=== PATIENT | female | born 1950 | race Caucasian/White ===

== ENCOUNTER 2016-11-19 20:44 | Inpatient (IN) | payer MEDICARE, MEDICAID ==
[~2016-11-19] VITALS: Ht 149.9 cm; Wt 46.2 kg
[~2016-11-19 20:44] MED LIST: CIPR500T2 PO; LACTCHW3 CHEW; METR500T10 PO; ONDA4TAB7 SL
[2016-11-19 20:45] VITALS: BP 137/64; PULSE 67; RESP 16; TEMP 98.7; O2SAT 98
--- NOTE | 2016-11-19 20:56 | PD ---
Data Data Last Documented VS Vital Signs Date Time Temp Pulse Resp B/P Pulse Ox O2 Delivery O2 Flow Rate FiO2 11/19/16 20:45 98.7 67 16 137/64 98 Room Air [facility] Supervised Visit with ARSALAN: No Narrative Course 66 YO F with complaint of abdominal cramping, N/V/D since yesterday. --F/C. States pain similar to previous episode of diverticulitis. Vitals reviewed. Patient seen in triage. Awaiting bed placement. Catarina Yang Nov 19, 2016 20:56
[2016-11-19] MEDS ORDERED: SODIUM CHLOR 0.9% 1000 ML INJ 1,000 ML IV SCH (21:13)
[2016-11-19] MEDS ORDERED: MORPHINE SULFATE 4 MG/ML INJ IV PUSH ONE (21:15)
[2016-11-19] MEDS ORDERED: ONDANSETRON HCL 4 MG/2 ML VIAL IVP ONE (21:15)
[2016-11-19] MEDS ORDERED: SODIUM CHLORIDE 0.9% FLUSH 10 ML FLUSH IV FLUSH PRN ×2 (21:15→23:00)
[2016-11-19] MEDS ORDERED: ONDANSETRON HCL 4 MG/2 ML VIAL ONE (21:16)
--- NOTE | 2016-11-19 21:18 | PD ---
HPI Chief Complaint: Abdominal Pain Time Seen by Provider: 21:14 Travel History International Travel<30 days: No Contact w/Intl Traveler<30days: No Traveled to known affect area: No History of Present Illness HPI 66-year-old female with a history of asthma, hyperlipidemia, migraine headaches presents to the emergency department for evaluation of nausea, vomiting and abdominal pain. Patient states that she's had intermittent abdominal pain for 2 weeks. States that it significantly worsened over the past 2 days. States it has become more constant over the past 2 days. Describes it as a sharp cramping pain in her right upper quadrant and periumbilical region. States that she has had nausea with multiple episodes of nonbloody nonbilious emesis over the past 2 days. States she's been unable to keep down any food or fluids. States she is not had a bowel movement in 3 days and previously had a week of diarrhea. Denies any fever, chills, chest pain, shortness of breath, bloody stool, dysuria. Denies any alcohol or drug use. Prior abdominal surgeries include section 2 and cholecystectomy. No other complaints. PFSH Past Medical History Asthma: Yes Anxiety: Yes Depression: Yes Cardiovascular Problems: No High Cholesterol: Yes Diminished Hearing: No Fibromyalgia: Yes Gastrointestinal Disorders: Yes GERD: Yes Genitourinary: No Hiatal Hernia: Yes Musculoskeletal: No Neurologic: No Psychiatric: Yes (ANXIETY ,DEPRESSION, POSSIBLY SCHIZOPHRENIA.) Reproductive: No Respiratory: Yes (ASTHMA, BRONCHITIS) Schizophrenia: Yes (05/26/07 PT DID NOT MENTION THIS ) Tetanus Vaccination: Unknown Menopausal: Yes : 2 Para: 2 Tubal Ligation: Yes Past Surgical History Abdominal Surgery: Yes Cardiac Surgery: No Section: Yes (X 2) Cholecystectomy: Yes Ear Surgery: No Endocrine Surgery: No Eye Surgery: No Genitourinary Surgery: No Gynecologic Surgery: Yes (c-sections) Oral Surgery: No Thoracic Surgery: No Tonsillectomy: Yes Other Surgery: Yes Social History Alcohol Use: No Tobacco Use: No Substance Use: No Allergies-Medications (Allergen,Severity, Reaction): Coded Allergies: Benadryl (Verified Allergy, Severe, 11/19/16) MEDICATION GIVE OPPOSITE EFFECT Penicillin (Verified Allergy, Severe, 11/19/16) Sulfa (Verified Allergy, Severe, RASH, 11/19/16) Codeine (Verified Allergy, Intermediate, Nausea/Vomiting, 11/19/16) Uncoded Allergies: NARCOTICS (Allergy, Severe, 11/23/09) SEVERE ABDOMINAL PAIN TAPES (Allergy, Mild, 05/20/08) Reported Meds & Prescriptions Reported Meds & Active Scripts Active No Active Prescriptions or Reported Medications Review of Systems Except as stated in HPI: all other systems reviewed are Neg Physical Exam Narrative GENERAL: Well-nourished and well-developed pleasant patient in no acute distress who is nontoxic appearing. SKIN: Warm and dry. HEAD: Normocephalic and atraumatic. EYES: No injection, drainage, or hyphema noted. PERRLA. EOMI. ENT: No nasal drainage noted. Oropharynx is clear. NECK: Supple and the trachea is midline. CARDIOVASCULAR: Regular rate and rhythm. RESPIRATORY: Breath sounds are equal bilaterally with no accessory muscle use, wheezing, rhonchi, or crackles. GASTROINTESTINAL: Right upper quadrant tenderness to palpation with periumbilical tenderness to palpation. No rebound tenderness or guarding. Abdomen is soft and nondistended. MUSCULOSKELETAL: No obvious deformities, swelling, cyanosis, or ecchymosis is present throughout the upper and lower extremities. Patient has full range of motion without any signs of neurovascular compromise. NEUROLOGICAL: Awake, alert, and oriented. Normal speech and gait. Cranial nerves are grossly intact. Data Data Last Documented VS Vital Signs Date Time Temp Pulse Resp B/P Pulse Ox O2 Delivery O2 Flow Rate FiO2 11/19/16 22:14 18 11/19/16 20:45 98.7 67 137/64 98 Room Air Orders Complete Blood Count With Diff (11/19/16 21:13) Comprehensive Metabolic Panel (11/19/16 21:13) Lipase (11/19/16 21:13) Urinalysis - C+S If Indicated (11/19/16 21:13) Ct Abd/Pel W Iv Contrast(Rout) (11/19/16 21:13) Iv Access Insert/Monitor (11/19/16 21:13) Ecg Monitoring (11/19/16 21:13) Oximetry (11/19/16 21:13) Morphine Inj (Morphine Inj) (11/19/16 21:15) Ondansetron Inj (Zofran Inj) (11/19/16 21:15) Sodium Chlor 0.9% 1000 Ml Inj (Ns 1000 M (11/19/16 21:13) Sodium Chloride 0.9% Flush (Ns Flush) (11/19/16 21:15) Ondansetron Inj (Zofran Inj) (11/19/16 21:16) Sodium Chlor 0.9% 1000 Ml Inj (Ns 1000 M (11/19/16 22:15) Iohexol 350 Inj (Omnipaque 350 Inj) (11/19/16 22:17) Ciprofloxacin 400 Mg Premix (Cipro 400 M (11/19/16 22:45) Metronidazole 500 Mg Inj (Flagyl 500 Mg (11/19/16 22:45) Ketorolac Inj (Toradol Inj) (11/19/16 22:45) Labs Laboratory Tests Test 11/19/16 21:15 White Blood Count 6.2 TH/MM3 Red Blood Count 5.03 MIL/MM3 Hemoglobin 16.3 GM/DL Hematocrit 47.0 % Mean Corpuscular Volume 93.5 FL Mean Corpuscular Hemoglobin 32.4 PG Mean Corpuscular Hemoglobin 34.7 % Concent Red Cell Distribution Width 12.3 % Platelet Count 241 TH/MM3 Mean Platelet Volume 9.5 FL Neutrophils (%) (Auto) 58.9 % Lymphocytes (%) (Auto) 34.9 % Monocytes (%) (Auto) 4.9 % Eosinophils (%) (Auto) 0.4 % Basophils (%) (Auto) 0.9 % Neutrophils # (Auto) 3.7 TH/MM3 Lymphocytes # (Auto) 2.2 TH/MM3 Monocytes # (Auto) 0.3 TH/MM3 Eosinophils # (Auto) 0.0 TH/MM3 Basophils # (Auto) 0.1 TH/MM3 CBC Comment DIFF FINAL Differential Comment Sodium Level 135 MEQ/L Potassium Level 3.7 MEQ/L Chloride Level 98 MEQ/L Carbon Dioxide Level 17.2 MEQ/L Anion Gap 20 MEQ/L Blood Urea Nitrogen 10 MG/DL Creatinine 0.93 MG/DL Estimat Glomerular Filtration 61 ML/MIN Rate Random Glucose 60 MG/DL Calcium Level 9.8 MG/DL Total Bilirubin 0.9 MG/DL Aspartate Amino Transf 28 U/L (AST/SGOT) Alanine Aminotransferase 30 U/L (ALT/SGPT) Alkaline Phosphatase 62 U/L Total Protein 8.6 GM/DL Albumin 4.6 GM/DL Lipase 228 U/L [facility] Medical Decision Making Medical Screen Exam Complete: Yes Emergency Medical Condition: Yes Differential Diagnosis Colitis versus diverticulitis versus pancreatitis versus dehydration versus electrolyte abnormality Narrative Course 66-year-old female presents to the emergency department for evaluation of abdominal pain, nausea and vomiting. Patient is afebrile, vital signs are stable. She has some right upper quadrant and periumbilical abdominal tenderness but no peritoneal signs. IV access is obtained, labs drawn and sent. Patient was on chronic telemetry and pulse oximetry monitoring. Patient will be administered IV fluids, Zofran and morphine. CT of the abdomen and pelvis with IV contrast has been ordered and is pending. CBC is unremarkable. CMP shows dehydration with an anion gap of 20. CT of the abdomen and pelvis with IV contrast shows proximal enteritis, proximal /mid colitis and sigmoid diverticulitis. Patient is reassessed after receiving IV fluids, Zofran and morphine and states that she is still feeling poorly. Patient will be admitted for IV antibiotics, fluids and antiemetics. She is administered IV Cipro, IV Flagyl and Toradol IV. I discussed the case with my attending physician Dr. To who is aware of the patients history, physical examination findings, and treatment plan. Physician Communication Physician Communication I spoke with Dr. Tobias [facility] who agrees to admit the patient to her service. Diagnosis Primary Impression: Enteritis Additional Impressions: Diverticulitis Qualified Code: K57.32 - Diverticulitis of large intestine without perforation or abscess without bleeding Nausea & vomiting Qualified Code: R11.2 - Non-intractable vomiting with nausea, unspecified vomiting type Admitting Information Admitting Physician Requests: Admit Scripts No Active Prescriptions or Reported Meds Madeline Hayward Nov 19, 2016 21:18
[2016-11-19 21:44] LABS: AUTOMATED NEUTROPHIL # 3.7 TH/MM3 (1.8-7.7); BASOPHIL # 0.1 TH/MM3 (0-0.2); BASOPHIL % 0.9 % (0.0-2.0); EOSINOPHIL % 0.4 % (0.0-4.0); HEMO FLAGS DIFF FINAL; LYMPH % 34.9 % (9.0-44.0); LYMPHOCYTE # 2.2 TH/MM3 (1.0-4.8); MEAN CELL VOLUME 93.5 FL (80.0-100.0); MEAN CORPUSCULAR HEMOGLOBIN 32.4 PG (27.0-34.0); MEAN CORPUSCULAR HGB CONC 34.7 % (32.0-36.0); MONO % 4.9 % (0.0-8.0); NEUT % 58.9 % (16.0-70.0); PLATELET COUNT 241 TH/MM3 (150-450); RED BLOOD COUNT 5.03 MIL/MM3 (4.00-5.30); RED CELL DISTRIBUTION WIDTH 12.3 % (11.6-17.2); WHITE BLOOD COUNT 6.2 TH/MM3 (4.0-11.0)
[2016-11-19 21:58] LABS: ANION GAP 20 MEQ/L (5-15); AST (GOT) 28 U/L (15-37); BICARBONATE 17.2 MEQ/L (21.0-32.0); BLOOD UREA NITROGEN 10 MG/DL (7-18); CHLORIDE 98 MEQ/L (98-107); GLOMERULAR FILTRATION RATE 61 ML/MIN (>89); POTASSIUM 3.7 MEQ/L (3.5-5.1); SODIUM (NA) 135 MEQ/L (136-145)
[2016-11-19 22:00] LABS: ALT (GPT) 30 U/L (10-53)
[2016-11-19 22:02] LABS: ALKALINE PHOSPHATASE 62 U/L (45-117); TOTAL BILIRUBIN ADULT 0.9 MG/DL (0.2-1.0)
[2016-11-19] MEDS ORDERED: SODIUM CHLOR 0.9% 1000 ML INJ 1,000 ML IV ONE (22:15)
[2016-11-19] MEDS ORDERED: IOHEXOL 350 MG/ML 10 ML VIAL (for RAD DIAG) IV ONE (22:17)
--- NOTE | 2016-11-19 22:32 | RADRPT ---
EXAM DATE/TIME: 11/19/2016 22:13 [place] COMPARISON: CT ABDOMEN & PELVIS W CONTRAST, April 23, 2016, 11:31. INDICATIONS : Upper abdominal pain X 2 weeks. IV CONTRAST: 70 cc Omnipaque 350 (iohexol) IV ORAL CONTRAST: No oral contrast ingested. RADIATION DOSE: 4.56 CTDIvol (mGy) MEDICAL HISTORY : Gastroesophageal reflux disease. Hiatal hernia, Asthma SURGICAL HISTORY : Cholecystectomy. Tubal ligation. section. ENCOUNTER: Initial ACUITY: 2 weeks PAIN SCALE: 7/10 LOCATION: abdomen TECHNIQUE: Volumetric scanning of the abdomen and pelvis was performed. Using automated exposure control and ad justment of the mA and/or kV according to patient size, radiation dose was kept as low as reasonably achievable to obtain optimal diagnostic quality images. FINDINGS: LOWER LUNGS: The visualized lower lungs are clear. LIVER: Homogeneous density without lesion. There is no dilation of the biliary tree. No calcified gallston es. SPLEEN: Normal size without lesion. PANCREAS: Within normal limits. KIDNEYS: Unchanged 3.4 cm cyst left kidney. ADRENAL GLANDS: Within normal limits. VASCULAR: There is no aortic aneurysm. BOWEL/MESENTERY: Fluid and mild wall thickening seen of the colon, mainly cecum and transverse colon. There is sigmoid colon diverticulosis and suspected mild, acute diverticulitis of the proximal sigmoid colon. Mild mu cosal fold thickening seen of several loops of jejunum in the left upper quadrant. There is trace dajuan e fluid in the pelvic cavity. No bowel obstruction. ABDOMINAL WALL: Within normal limits. RETROPERITONEUM: There is no lymphadenopathy. BLADDER: No wall thickening or mass. REPRODUCTIVE: Within normal limits. INGUINAL: There is no lymphadenopathy or hernia. MUSCULOSKELETAL: Within normal limits for patient age. CONCLUSION: Mild proximal enteritis and proximal/mid colitis as above, nonspecific but presumably infectious. Als o mild sigmoid colon diverticulitis. No abscess, perforation or obstruction. Rodriguez Aparicio MD on November 19, 2016 at 22:25 Board Certified Radiologist. This report was verified electronically.
--- NOTE | 2016-11-19 22:41 | PD ---
Data Data Last Documented VS Vital Signs Date Time Temp Pulse Resp B/P Pulse Ox O2 Delivery O2 Flow Rate FiO2 11/19/16 22:14 18 11/19/16 20:45 98.7 67 137/64 98 Room Air Orders Complete Blood Count With Diff (11/19/16 21:13) Comprehensive Metabolic Panel (11/19/16 21:13) Lipase (11/19/16 21:13) Urinalysis - C+S If Indicated (11/19/16 21:13) Ct Abd/Pel W Iv Contrast(Rout) (11/19/16 21:13) Iv Access Insert/Monitor (11/19/16 21:13) Ecg Monitoring (11/19/16 21:13) Oximetry (11/19/16 21:13) Morphine Inj (Morphine Inj) (11/19/16 21:15) Ondansetron Inj (Zofran Inj) (11/19/16 21:15) Sodium Chlor 0.9% 1000 Ml Inj (Ns 1000 M (11/19/16 21:13) Sodium Chloride 0.9% Flush (Ns Flush) (11/19/16 21:15) Ondansetron Inj (Zofran Inj) (11/19/16 21:16) Sodium Chlor 0.9% 1000 Ml Inj (Ns 1000 M (11/19/16 22:15) Iohexol 350 Inj (Omnipaque 350 Inj) (11/19/16 22:17) Ciprofloxacin 400 Mg Premix (Cipro 400 M (11/19/16 22:45) Metronidazole 500 Mg Inj (Flagyl 500 Mg (11/19/16 22:45) Labs Laboratory Tests Test 11/19/16 21:15 White Blood Count 6.2 TH/MM3 Red Blood Count 5.03 MIL/MM3 Hemoglobin 16.3 GM/DL Hematocrit 47.0 % Mean Corpuscular Volume 93.5 FL Mean Corpuscular Hemoglobin 32.4 PG Mean Corpuscular Hemoglobin 34.7 % Concent Red Cell Distribution Width 12.3 % Platelet Count 241 TH/MM3 Mean Platelet Volume 9.5 FL Neutrophils (%) (Auto) 58.9 % Lymphocytes (%) (Auto) 34.9 % Monocytes (%) (Auto) 4.9 % Eosinophils (%) (Auto) 0.4 % Basophils (%) (Auto) 0.9 % Neutrophils # (Auto) 3.7 TH/MM3 Lymphocytes # (Auto) 2.2 TH/MM3 Monocytes # (Auto) 0.3 TH/MM3 Eosinophils # (Auto) 0.0 TH/MM3 Basophils # (Auto) 0.1 TH/MM3 CBC Comment DIFF FINAL Differential Comment Sodium Level 135 MEQ/L Potassium Level 3.7 MEQ/L Chloride Level 98 MEQ/L Carbon Dioxide Level 17.2 MEQ/L Anion Gap 20 MEQ/L Blood Urea Nitrogen 10 MG/DL Creatinine 0.93 MG/DL Estimat Glomerular Filtration 61 ML/MIN Rate Random Glucose 60 MG/DL Calcium Level 9.8 MG/DL Total Bilirubin 0.9 MG/DL Aspartate Amino Transf 28 U/L (AST/SGOT) Alanine Aminotransferase 30 U/L (ALT/SGPT) Alkaline Phosphatase 62 U/L Total Protein 8.6 GM/DL Albumin 4.6 GM/DL Lipase 228 U/L [facility] Supervised Visit with ARSALAN: Yes Narrative Course I, Dr. To, have reviewed the advance practice practioner's documentation and am in agreement, met with the patient face to face, made the diagnosis, and the medical decision making was done by me. *My assessment and Findings: 66-year-old female with history of irritable bowel who presents emergency Department with 2 days of crampy abdominal pain, nausea, intractable vomiting. She's not been able to keep anything down for essentially the last 2 days. She states that previous to this she had a week's worth of diarrhea and now hasn't had a bowel movement for 2 days. She denies any history of bowel obstructions by previous abdominal surgeries include C- section 2 and cholecystectomy. Mild to moderate diffuse abdominal tenderness to palpation but no peritoneal signs, rebound or guarding. Differential includes colitis, enteritis, irritable bowel syndrome, dehydration, electrolyte abnormality and less likely peritoneal pathology. Laboratory workup shows anion gap metabolic acidosis consistent with her dehydration. Patient was given 2 L normal saline bolus. CT abdomen and pelvis shows enteritis, colitis and diverticulitis. Patient is still miserable and not able to tolerate oral challenge and will be admitted for symptom control. Scripts No Active Prescriptions or Reported Meds Crystal To MD Nov 19, 2016 22:41
[2016-11-19] MEDS ORDERED: CIPROFLOXACIN 400 MG PREMIX 200 ML IV ONE (22:45)
[2016-11-19] MEDS ORDERED: metroNIDAZOLE 500 MG INJ 100 ML IV ONE (22:45)
[2016-11-19] MEDS ORDERED: KETOROLAC TROMETHAMINE 30 MG/ML (IVP) VIAL IV PUSH ONE (22:45)
[2016-11-19] MEDS ORDERED: ACETAMINOPHEN 325 MG TAB PO PRN (23:00)
[2016-11-19] MEDS ORDERED: MAGNESIUM HYDROXIDE SUSP 30 ML CUP PO PRN (23:00)
[2016-11-19] MEDS ORDERED: SENNOSIDES 8.6 MG TAB PO PRN (23:00)
[2016-11-19] MEDS ORDERED: LACTULOSE SYRUP 20 GM/30 ML CUP PO PRN (23:00)
[2016-11-19] MEDS ORDERED: BISACODYL 10 MG SUPP RECTAL PRN (23:00)
--- NOTE | 2016-11-19 23:07 | HHI.HP ---
[facility] Vernon Correa MD Admission Diagnosis Enteritis, Diverticulitis, Nausea and Vomiting Diagnoses: (1) Colitis Diagnosis: Principal (2) Dehydration Diagnosis: Principal (3) Intractable nausea and vomiting Diagnosis: Principal Travel History International Travel<30 Days: No Contact w/Intl Traveler <30 Da: No Traveled to Known Affected Are: No History of Present Illness This is a 66-year-old female with a PMH of Anxiety, Depression, Fibromyalgia, Schizophrenia and Asthma who presented to the ER with complaints of nausea, vomiting and abdominal pain for approx 2wks. Denies fever, chills, diarrhea or sick contacts. Has been unable to tolerate PO due to symptoms. On arrival, BP 137/64, HR 67, O2 sat 98% on RA, Afebrile. CBC unremarkable except for hemoconcentration, Hemoglobin 16.3. GFR 61. AG 20. UA negative. CT Abd/ Pelvis w/ mild proximal enteritis and proximal/mid colitis likely infectious and mild sigmoid colon diverticulitis. S/p Cipro/Flagyl. Review of Systems [place] via Past Family Social History Past Medical History PMH: Anxiety, Depression, Fibromyalgia, Schizophrenia and Asthma Past Surgical History PAST SURGICAL HISTORY: , Cholecystectomy Allergies: Coded Allergies: Benadryl (Verified Allergy, Severe, 11/19/16) MEDICATION GIVE OPPOSITE EFFECT Penicillin (Verified Allergy, Severe, 11/19/16) Sulfa (Verified Allergy, Severe, RASH, 11/19/16) Codeine (Verified Allergy, Intermediate, Nausea/Vomiting, 11/19/16) Uncoded Allergies: NARCOTICS (Allergy, Severe, 11/23/09) SEVERE ABDOMINAL PAIN TAPES (Allergy, Mild, 05/20/08) Family History PAST FAMILY HISTORY: Reviewed. No h/o DM or CAD Social History PAST SOCIAL HISTORY: Negative for alcohol, tobacco or drugs. Physical Exam Vital Signs Vital Signs Date Time Temp Pulse Resp B/P Pulse Ox O2 Delivery O2 Flow Rate FiO2 11/19/16 22:14 18 11/19/16 20:45 98.7 67 16 137/64 98 Room Air Physical Exam PE: GENERAL: Thin, middle-aged white female in no acute distress, appears to feel unwell. HEENT: PERRLA, EOMI. No scleral icterus or conjunctival pallor. No lid lag or facial droop. CARDIOVASCULAR: Regular rate and rhythm. No obvious murmurs to auscultation. No chest tenderness to palpation. RESPIRATORY: No obvious rhonchi or wheezing. Clear to auscultation. Breath sounds equal bilaterally. GASTROINTESTINAL: Abdomen soft, generalized tenderness to palpation, nondistended. BS normal. MUSCULOSKELETAL: Extremities without clubbing, cyanosis, or edema. No obvious deformities. NEUROLOGICAL: Awake, alert and oriented x4. No focal neurologic deficits. Moving both upper and lower extremities spontaneously. Laboratory Laboratory Tests Test 11/19/16 21:15 White Blood Count 6.2 Red Blood Count 5.03 Hemoglobin 16.3 Hematocrit 47.0 Mean Corpuscular Volume 93.5 Mean Corpuscular Hemoglobin 32.4 Mean Corpuscular Hemoglobin 34.7 Concent Red Cell Distribution Width 12.3 Platelet Count 241 Mean Platelet Volume 9.5 Neutrophils (%) (Auto) 58.9 Lymphocytes (%) (Auto) 34.9 Monocytes (%) (Auto) 4.9 Eosinophils (%) (Auto) 0.4 Basophils (%) (Auto) 0.9 Neutrophils # (Auto) 3.7 Lymphocytes # (Auto) 2.2 Monocytes # (Auto) 0.3 Eosinophils # (Auto) 0.0 Basophils # (Auto) 0.1 CBC Comment DIFF FINAL Differential Comment Sodium Level 135 Potassium Level 3.7 Chloride Level 98 Carbon Dioxide Level 17.2 Anion Gap 20 Blood Urea Nitrogen 10 Creatinine 0.93 Estimat Glomerular Filtration 61 Rate Random Glucose 60 Calcium Level 9.8 Total Bilirubin 0.9 Aspartate Amino Transf 28 (AST/SGOT) Alanine Aminotransferase 30 (ALT/SGPT) Alkaline Phosphatase 62 Total Protein 8.6 Albumin 4.6 Lipase 228 Result Diagram: 11/19/16211411/19/162114 Assessment and Plan Problem List: (1) Colitis ICD Code: K52.9 Status: Acute (2) Dehydration ICD Code: E86.0 Status: Acute (3) Intractable nausea and vomiting ICD Code: R11.2 Status: Resolved Assessment and Plan A/P: 1. Colitis: Pancolitis. CT Abd/Pelvis w/ mild proximal enteritis and proximal /mid colitis minimally infectious, mild sigmoid colon diverticulitis, no abscess , perforation or obstruction noted, images reviewed by me. S/p Cipro/Flagyl in ER, continue w/ IV Abx, analgesics/antiemetics as needed. Diet as tolerated. 2. Dehydration: secondary to above, ongoing symptoms x2 wks, unable to take adequate PO. +hemoconcentration w/ Hgb 16.3, AG 20, GFR 61. IVF for hydration , repeat labs in am. 3. Intractable Nausea/Vomiting: Antiemetics as needed, IVF, diet as tolerated. 4. DVT Prophylaxis: SCD/Teds. 5. Social work for d/c planning as needed. 6. Case discussed w/ ER physician at length. Physician Certification 2 Midnight Certification Type: Admission for Inpatient Services Order for Inpatient Services The services are ordered in accordance with Medicare regulations or non- Medicare payer requirements, as applicable. In the case of services not specified as inpatient-only, they are appropriately provided as inpatient services in accordance with the 2-midnight benchmark. Estimated LOS (days): 2 days is the estimated time the patient will need to remain in the hospital, assuming treatment plan goals are met and no additional complications. Post-Hospital Plan: Not yet determined Diann Tobias MD Nov 19, 2016 23:07
[2016-11-19 23:16] LABS: BLOOD, URINE NEG (NEG); GLUCOSE,URINE NEG (NEG); KETONE, URINE 150 mg/dL (NEG); NITRITE,URINE NEG (NEG); URINE COLOR LIGHT-YELLOW (YELLW/STRAW)
[2016-11-19 23:17] LABS: COMMENT (UR) CULT NOT INDICATED; CULTURE IF INDICATED CULT NOT INDICATED
[2016-11-19] MEDS: SODIUM CHLOR 0.9% 1000 ML INJ 1,000 ML IV SCH (23:53)
[2016-11-20] VITALS (8 sets, daily range): BP systolic 85–112; BP diastolic 50–60; PULSE 54–68; RESP 15–18; TEMP 97.8–98.5; O2SAT 97–100
[2016-11-20] MEDS: ONDANSETRON HCL 4 MG/2 ML VIAL IVP PRN (05:50)
[2016-11-20] MEDS: metroNIDAZOLE 500 MG INJ 100 ML IV SCH ×3 (05:50→23:14)
[2016-11-20] MEDS: DOCUSATE SODIUM 50 MG/SENNA 8.6 MG TAB PO SCH ×2 (07:51→21:00)
[2016-11-20] MEDS: SODIUM CHLORIDE 0.9% FLUSH 10 ML FLUSH IV FLUSH SCH ×2 (07:51→21:00)
[2016-11-20] MEDS: SODIUM CHLOR 0.9% 1000 ML INJ 1,000 ML IV SCH (07:52)
--- NOTE | 2016-11-20 09:11 | HHI.PR ---
Subjective Remarks Patient seen and examined this am. Vitals are stable, saturating well on room air. Reporting some abdominal pain, asking if she can have her toradol back. States she has this abdominal pain where her colitis flares and that it slowly subsides and goes away. She states the pain is deep and pulsatile, feels that it moves from the right upper quadrant to left lower quadrant. Denies N/V. Overall pain is improved. States food does not affect the pain. Objective Vital Signs Date Time Temp Pulse Resp B/P Pulse Ox O2 Delivery O2 Flow Rate FiO2 11/20/16 08:01 Room Air 11/20/16 04:00 98.0 66 16 91/50 98 11/20/16 02:20 Room Air 11/20/16 01:12 54 16 112/60 11/20/16 00:50 97.8 56 18 94/51 99 11/19/16 22:14 18 11/19/16 20:45 98.7 67 16 137/64 98 Room Air I/O 11/19/16 11/19/16 11/19/16 11/20/16 11/20/16 11/20/16 07:00 15:00 23:00 07:00 15:00 23:00 Intake Total 3048 ml Balance 3048 ml Intake Oral 240 ml IV Total 2808 ml # Voids 2 # Bowel Movements 0 Result Diagram: 11/19/16211411/19/162114 Imaging Last Impressions Abdomen/Pelvis CT 11/19/162112 Signed Impressions: Service Date/Time: Saturday, November 19, 2016 22:13 - CONCLUSION: Mild proximal enteritis and proximal/mid colitis as above, nonspecific but presumably infectious. Also mild sigmoid colon diverticulitis. No abscess, perforation or obstruction. Rodriguez Aparicio MD Objective Remarks GENERAL: thin appearing female SKIN: Warm and dry. HEAD: Normocephalic. EYES: No scleral icterus. No injection or drainage. NECK: Supple, trachea midline. No JVD or lymphadenopathy. CARDIOVASCULAR: Regular rate and rhythm without murmurs, gallops, or rubs. RESPIRATORY: Breath sounds equal bilaterally. No accessory muscle use. GASTROINTESTINAL: Abdomen soft, nondistended, diffuse tenderness to abdomen, worse RUQ and LLQ MUSCULOSKELETAL: No cyanosis, or edema. BACK: Nontender without obvious deformity. No CVA tenderness. A/P Problem List: (1) DVT prophylaxis ICD Code: V58.61 (2) Colitis, acute ICD Code: K52.9 (3) Dehydration ICD Code: E86.0 (4) Nausea & vomiting ICD Code: R11.2 Assessment and Plan 66 yo female with: 1. Colitis: Pancolitis. CT Abd/Pelvis w/ mild proximal enteritis and proximal /mid colitis minimally infectious, mild sigmoid colon diverticulitis, no abscess , perforation or obstruction noted, see imaging above. - Con't Cipro/Flagyl Diet as tolerated. - Toradol for pain control 2. Dehydration: secondary to above, ongoing symptoms x2 wks, unable to take adequate PO. - Cont IV NS @ 100 cc/hr 3. Intractable Nausea/Vomiting: resolved - Zofran prn 4. DVT Prophylaxis:bilat SCDs Discharge Planning D/C pending clinical improvement, likely additional 1-2 days. Problem Qualifiers (1) Nausea & vomiting: Qualified Code: R11.2 - Non-intractable vomiting with nausea, unspecified vomiting type Bebe Garcia MD R3 Nov 20, 2016 09:11
[2016-11-20] MEDS: KETOROLAC TROMETHAMINE 30 MG/ML (IVP) VIAL IV PUSH SCH ×3 (11:01→23:14)
[2016-11-20] MEDS: CIPROFLOXACIN 400 MG PREMIX 200 ML IV SCH (11:01)
[2016-11-20 11:41] LABS: AUTOMATED NEUTROPHIL # 5.2 TH/MM3 (1.8-7.7); BASOPHIL # 0.1 TH/MM3 (0-0.2); BASOPHIL % 0.7 % (0.0-2.0); EOSINOPHIL % 0.1 % (0.0-4.0); HEMATOCRIT 35.2 % (35.0-46.0); HEMO FLAGS DIFF FINAL; LYMPH % 22.7 % (9.0-44.0); LYMPHOCYTE # 1.7 TH/MM3 (1.0-4.8); MEAN CELL VOLUME 93.8 FL (80.0-100.0); MEAN CORPUSCULAR HEMOGLOBIN 31.9 PG (27.0-34.0); MONO % 5.9 % (0.0-8.0); NEUT % 70.6 % (16.0-70.0); PLATELET COUNT 174 TH/MM3 (150-450); RED BLOOD COUNT 3.75 MIL/MM3 (4.00-5.30); WHITE BLOOD COUNT 7.3 TH/MM3 (4.0-11.0)
[2016-11-20 12:10] LABS: ALKALINE PHOSPHATASE 49 U/L (45-117); ALT (GPT) 34 U/L (10-53); ANION GAP 9 MEQ/L (5-15); AST (GOT) 36 U/L (15-37); BICARBONATE 26.4 MEQ/L (21.0-32.0); BLOOD UREA NITROGEN 9 MG/DL (7-18); CHLORIDE 107 MEQ/L (98-107); GLOMERULAR FILTRATION RATE 62 ML/MIN (>89); POTASSIUM 3.7 MEQ/L (3.5-5.1); SODIUM (NA) 142 MEQ/L (136-145); TOTAL BILIRUBIN ADULT 0.5 MG/DL (0.2-1.0)
[2016-11-21] VITALS (7 sets, daily range): BP systolic 81–102; BP diastolic 51–57; PULSE 60–79; RESP 15–18; TEMP 97.5–98.2; O2SAT 97–100
[2016-11-21] MEDS: CIPROFLOXACIN 400 MG PREMIX 200 ML IV SCH ×3 (00:39→22:10)
[2016-11-21] MEDS: KETOROLAC TROMETHAMINE 30 MG/ML (IVP) VIAL IV PUSH SCH ×4 (05:00→23:06)
[2016-11-21] MEDS: metroNIDAZOLE 500 MG INJ 100 ML IV SCH ×3 (05:49→23:06)
[2016-11-21 08:17] LABS: AUTOMATED NEUTROPHIL # 3.2 TH/MM3 (1.8-7.7); BASOPHIL # 0.1 TH/MM3 (0-0.2); BASOPHIL % 0.9 % (0.0-2.0); EOSINOPHIL # 0.1 TH/MM3 (0-0.4); EOSINOPHIL % 1.3 % (0.0-4.0); HEMATOCRIT 38.7 % (35.0-46.0); HEMO FLAGS DIFF FINAL; LYMPH % 39.7 % (9.0-44.0); LYMPHOCYTE # 2.4 TH/MM3 (1.0-4.8); MEAN CELL VOLUME 94.9 FL (80.0-100.0); MEAN CORPUSCULAR HEMOGLOBIN 31.5 PG (27.0-34.0); MEAN CORPUSCULAR HGB CONC 33.2 % (32.0-36.0); MONO % 4.9 % (0.0-8.0); NEUT % 53.2 % (16.0-70.0); PLATELET COUNT 163 TH/MM3 (150-450); RED BLOOD COUNT 4.08 MIL/MM3 (4.00-5.30); RED CELL DISTRIBUTION WIDTH 12.3 % (11.6-17.2); WHITE BLOOD COUNT 5.9 TH/MM3 (4.0-11.0)
[2016-11-21 08:46] LABS: BICARBONATE 26.3 MEQ/L (21.0-32.0); POTASSIUM 3.7 MEQ/L (3.5-5.1)
[2016-11-21] MEDS: SODIUM CHLORIDE 0.9% FLUSH 10 ML FLUSH IV FLUSH SCH ×2 (09:00→20:20)
[2016-11-21] MEDS: DOCUSATE SODIUM 50 MG/SENNA 8.6 MG TAB PO SCH ×2 (09:08→20:20)
[2016-11-21] MEDS: SODIUM CHLOR 0.9% 1000 ML INJ 1,000 ML IV SCH ×2 (09:15→14:54)
--- NOTE | 2016-11-21 15:35 | HHI.PR ---
Subjective Remarks Patient complains of abdominal pain in the right upper quadrant and now in the epigastrium along the right upper left and right quadrant. Denies nausea vomiting Denies diarrhea denies Denies fevers or chills BP noted to be low Objective Vitals Vital Signs Date Time Temp Pulse Resp B/P Pulse Ox O2 Delivery O2 Flow Rate FiO2 11/21/16 12:23 97.5 60 17 87/51 99 11/21/16 08:24 97.6 64 17 86/54 98 11/21/16 04:45 97.6 65 15 85/53 100 11/21/16 04:00 97.6 65 15 85/53 100 11/21/16 02:00 Room Air 11/21/16 00:00 97.9 63 18 83/54 98 11/20/16 22:48 Room Air 11/20/16 20:00 98.3 57 15 86/54 97 11/20/16 16:00 98.5 64 18 91/55 99 11/20/16 16:00 Room Air I/O 11/20/16 11/20/16 11/20/16 11/21/16 11/21/16 11/21/16 07:00 15:00 23:00 07:00 15:00 23:00 Intake Total 3048 ml 1819 ml 1280 ml 1040 ml Balance 3048 ml 1819 ml 1280 ml 1040 ml Intake Oral 240 ml 480 ml 480 ml 240 ml IV Total 2808 ml 1339 ml 800 ml 800 ml # Voids 2 3 2 2 # Bowel Movements 0 0 0 Result Diagram: 11/21/16 0700 11/21/16 0700 Imaging Last Impressions Abdomen/Pelvis CT 11/19/162112 Signed Impressions: Service Date/Time: Saturday, November 19, 2016 22:13 - CONCLUSION: Mild proximal enteritis and proximal/mid colitis as above, nonspecific but presumably infectious. Also mild sigmoid colon diverticulitis. No abscess, perforation or obstruction. Rodriguez Aparicio MD Reviewed by me Objective Remarks GENERAL: thin appearing female SKIN: Warm and dry. HEAD: Normocephalic. EYES: No scleral icterus. No injection or drainage. NECK: Supple, trachea midline. No JVD or lymphadenopathy. CARDIOVASCULAR: Regular rate and rhythm without murmurs, gallops, or rubs. RESPIRATORY: Breath sounds equal bilaterally. No accessory muscle use. GASTROINTESTINAL: Abdomen soft, nondistended, diffuse tenderness to abdomen, worse RUQ and LLQ MUSCULOSKELETAL: No cyanosis, or edema. BACK: Nontender without obvious deformity. No CVA tenderness. Medications and IVs Current Medications Medications (Trade) Dose Ordered Sig/Bertram Route Start Time Stop Time Status Last Admin Ciprofloxacin/ Dextrose 200 ml @ 200 mls/hr Q12H IV 11/20/16 11:00 11/21/16 11:24 (Flagyl 500 Mg Inj) 100 ml @ 100 mls/hr Q8H IV 11/20/16 07:00 11/21/16 16:05 (NS Flush) 2 ml UNSCH PRN IV FLUSH 11/19/16 23:00 (NS Flush) 2 ml BID IV FLUSH 11/20/16 09:00 (Zofran Inj) 4 mg Q6H PRN IVP 11/19/16 23:00 11/20/16 05:50 (Tylenol) 650 mg Q6H PRN PO 11/19/16 23:00 (Sugar-Colace) 1 tab BID PO 11/20/16 09:00 11/21/16 09:08 (Milk Of Magnesia Liq) 30 ml Q12H PRN PO 11/19/16 23:00 11/21/16 09:11 (Senokot) 17.2 mg Q12H PRN PO 11/19/16 23:00 (Dulcolax Supp) 10 mg DAILY PRN RECTAL 11/19/16 23:00 (Lactulose Liq) 30 ml DAILY PRN PO 11/19/16 23:00 Ketorolac Tromethamine 15 mg 15 mg Q6HR IV PUSH 11/20/16 12:00 11/25/16 11:59 11/21/16 12:58 (1/2 NS + KCl 20 Meq Inj) 1,000 ml @ 125 mls/hr Q8H IV 11/21/16 15:45 11/21/16 16:09 Urinary Catheter: No Vascular Central Line Catheter: No A/P Problem List: (1) Colitis ICD Code: K52.9 Status: Acute (2) Dehydration ICD Code: E86.0 Status: Acute (3) Intractable nausea and vomiting ICD Code: R11.2 Status: Resolved Assessment and Plan 66 yo female with: 1. Colitis: Pancolitis. CT Abd/Pelvis w/ mild proximal enteritis and proximal /mid colitis minimally infectious, mild sigmoid colon diverticulitis, no abscess , perforation or obstruction noted, see imaging above. - Con't Cipro/Flagyl Diet as tolerated. - Toradol for pain control - Patient states she had a colonoscopy in 2014 and on endoscopy in 2016. Upon review of EMR, pathology results pathology results of colon biopsy are normal, as well as the results from the upper endoscopy. 2. Dehydration: secondary to above, ongoing symptoms x2 wks, unable to take adequate PO. -Patient now with sodium trending up at 147. Will change IV fluids to 1/2 ns. 3. Intractable Nausea/Vomiting: resolved - Zofran prn, much improved. 4. DVT Prophylaxis:bilat SCDs, Will Place patient on heparin SQ. 5. Hypotension: The patient has chronic low blood pressure. However on review of medical records her systolic blood pressure usually in the 90s. We'll give 500 mL of normal saline given that patient's systolic blood pressures in the 80s. Discharge Planning Continue to monitor in the medical floor. Patient still with significant abdominal pain and hypernatremia. Carlton Reyes MD Nov 21, 2016 15:35
[2016-11-21] MEDS: 1/2 NS + KCL 20 MEQ INJ 1,000 ML IV SCH ×2 (16:09→23:45)
[2016-11-21] MEDS ORDERED: SODIUM CHLORID 0.9% 500 ML INJ 500 ML IV ONE (16:45)
[2016-11-21] MEDS: ONDANSETRON HCL 4 MG/2 ML VIAL IVP PRN (23:06)
[2016-11-22] VITALS: BP 86/52; PULSE 67; RESP 18; TEMP 98.1; O2SAT 95
[2016-11-22 04:00] VITALS: BP 96/55; PULSE 75; RESP 18; TEMP 97.9; O2SAT 97
[2016-11-22] MEDS: ONDANSETRON HCL 4 MG/2 ML VIAL IVP PRN ×4 (05:46→23:15)
[2016-11-22] MEDS: KETOROLAC TROMETHAMINE 30 MG/ML (IVP) VIAL IV PUSH SCH ×4 (05:46→23:17)
[2016-11-22] MEDS: metroNIDAZOLE 500 MG INJ 100 ML IV SCH ×3 (05:47→23:05)
[2016-11-22 06:40] LABS: AUTOMATED NEUTROPHIL # 3.3 TH/MM3 (1.8-7.7); BASOPHIL # 0.1 TH/MM3 (0-0.2); BASOPHIL % 0.8 % (0.0-2.0); EOSINOPHIL # 0.2 TH/MM3 (0-0.4); HEMATOCRIT 35.3 % (35.0-46.0); HEMO FLAGS DIFF FINAL; LYMPH % 38.8 % (9.0-44.0); LYMPHOCYTE # 2.5 TH/MM3 (1.0-4.8); MEAN CELL VOLUME 93.2 FL (80.0-100.0); MEAN CORPUSCULAR HEMOGLOBIN 32.7 PG (27.0-34.0); MONO % 4.6 % (0.0-8.0); NEUT % 52.8 % (16.0-70.0); PLATELET COUNT 157 TH/MM3 (150-450); RED BLOOD COUNT 3.79 MIL/MM3 (4.00-5.30); RED CELL DISTRIBUTION WIDTH 12.4 % (11.6-17.2); WHITE BLOOD COUNT 6.3 TH/MM3 (4.0-11.0)
[2016-11-22 06:55] LABS: ALT (GPT) 24 U/L (10-53); ANION GAP 5 MEQ/L (5-15); AST (GOT) 22 U/L (15-37); BICARBONATE 32.2 MEQ/L (21.0-32.0); BLOOD UREA NITROGEN 5 MG/DL (7-18); CHLORIDE 110 MEQ/L (98-107); GLOMERULAR FILTRATION RATE 78 ML/MIN (>89); MAGNESIUM 1.7 MG/DL (1.5-2.5); POTASSIUM 3.4 MEQ/L (3.5-5.1); SODIUM (NA) 147 MEQ/L (136-145)
[2016-11-22 06:58] LABS: ALKALINE PHOSPHATASE 40 U/L (45-117); TOTAL BILIRUBIN ADULT 0.4 MG/DL (0.2-1.0)
[2016-11-22 08:35] VITALS: BP 92/53; PULSE 72; RESP 17; TEMP 98; O2SAT 99
[2016-11-22] MEDS: SODIUM CHLORIDE 0.9% FLUSH 10 ML FLUSH IV FLUSH SCH ×2 (09:00→21:00)
[2016-11-22] MEDS: 1/2 NS + KCL 20 MEQ INJ 1,000 ML IV SCH (09:02)
[2016-11-22] MEDS: DOCUSATE SODIUM 50 MG/SENNA 8.6 MG TAB PO SCH ×2 (09:03→21:00)
[2016-11-22] MEDS: CIPROFLOXACIN 400 MG PREMIX 200 ML IV SCH ×2 (11:43→23:05)
[2016-11-22 12:00] VITALS: BP 102/58; PULSE 70; RESP 18; TEMP 98.2; O2SAT 95
[2016-11-22] MEDS ORDERED: POTASSIUM CHLORIDE 10 MEQ CONTROLLED RELEASE TAB PO ONE (14:00)
--- NOTE | 2016-11-22 15:19 | HHI.PR ---
Subjective Remarks Patient still complaining of severe abdominal pain and persistent nausea which has been intractable Denies vomiting Denies fevers or chills Blood pressure improving. Potassium low Objective Vitals Vital Signs Date Time Temp Pulse Resp B/P Pulse Ox O2 Delivery O2 Flow Rate FiO2 11/22/16 12:45 18 11/22/16 12:00 98.2 70 18 102/58 95 11/22/16 09:19 99 Room Air 11/22/16 08:35 98.0 72 17 92/53 99 11/22/16 04:00 97.9 75 18 96/55 97 11/22/16 00:00 Room Air 11/22/16 00:00 98.1 67 18 86/52 95 11/21/16 20:00 Room Air 11/21/16 20:00 98.2 60 16 102/57 100 11/21/16 16:00 97.9 79 18 81/53 97 11/21/16 16:00 97 Room Air I/O 11/21/16 11/21/16 11/21/16 11/22/16 11/22/16 11/22/16 07:00 15:00 23:00 07:00 15:00 23:00 Intake Total 1040 ml 720 ml 1005 ml 995 ml 798 ml Balance 1040 ml 720 ml 1005 ml 995 ml 798 ml Intake Oral 240 ml 720 ml 0 ml 0 ml IV Total 800 ml 1005 ml 995 ml 798 ml # Voids 2 3 0 4 # Bowel Movements 0 1 0 0 Result Diagram: 11/22/16 0619 11/22/1619 Imaging Last Impressions Abdomen/Pelvis CT 11/19/162112 Signed Impressions: Service Date/Time: Saturday, November 19, 2016 22:13 - CONCLUSION: Mild proximal enteritis and proximal/mid colitis as above, nonspecific but presumably infectious. Also mild sigmoid colon diverticulitis. No abscess, perforation or obstruction. Rodriguez Aparicio MD Objective Remarks GENERAL: thin appearing female SKIN: Warm and dry. HEAD: Normocephalic. EYES: No scleral icterus. No injection or drainage. NECK: Supple, trachea midline. No JVD or lymphadenopathy. CARDIOVASCULAR: Regular rate and rhythm without murmurs, gallops, or rubs. RESPIRATORY: Breath sounds equal bilaterally. No accessory muscle use. GASTROINTESTINAL: Abdomen soft, nondistended, diffuse tenderness to abdomen, worse RUQ and LLQ and epigastric MUSCULOSKELETAL: No cyanosis, or edema. BACK: Nontender without obvious deformity. No CVA tenderness. Medications and IVs Current Medications Medications (Trade) Dose Ordered Sig/Bertram Route Start Time Stop Time Status Last Admin Ciprofloxacin/ Dextrose 200 ml @ 200 mls/hr Q12H IV 11/20/16 11:00 11/22/16 11:43 (Flagyl 500 Mg Inj) 100 ml @ 100 mls/hr Q8H IV 11/20/16 07:00 11/22/16 15:05 (NS Flush) 2 ml UNSCH PRN IV FLUSH 11/19/16 23:00 (NS Flush) 2 ml BID IV FLUSH 11/20/16 09:00 (Zofran Inj) 4 mg Q6H PRN IVP 11/19/16 23:00 11/22/16 11:46 (Tylenol) 650 mg Q6H PRN PO 11/19/16 23:00 (Sugar-Colace) 1 tab BID PO 11/20/16 09:00 11/22/16 09:03 (Milk Of Magnesia Liq) 30 ml Q12H PRN PO 11/19/16 23:00 11/21/16 09:11 (Senokot) 17.2 mg Q12H PRN PO 11/19/16 23:00 (Dulcolax Supp) 10 mg DAILY PRN RECTAL 11/19/16 23:00 (Lactulose Liq) 30 ml DAILY PRN PO 11/19/16 23:00 Ketorolac Tromethamine 15 mg 15 mg Q6HR IV PUSH 11/20/16 12:00 11/25/16 11:59 11/22/16 11:44 (KCl Inj/Sodium Chloride 23.4% Inj/Sterile Water For Inj) 1,019.625 ml @ 100 mls/hr [id number] IV 11/22/16 16:00 11/22/16 15:49 Urinary Catheter: No Vascular Central Line Catheter: No A/P Problem List: (1) Colitis ICD Code: K52.9 Status: Acute (2) Dehydration ICD Code: E86.0 Status: Acute (3) Intractable nausea and vomiting ICD Code: R11.2 Status: Resolved Assessment and Plan 66 yo female with: 1. Colitis: Pancolitis. CT Abd/Pelvis w/ mild proximal enteritis and proximal /mid colitis minimally infectious, mild sigmoid colon diverticulitis, no abscess , perforation or obstruction noted, see imaging above. - Con't Cipro/Flagyl Diet as tolerated. - Toradol for pain control - Patient states she had a colonoscopy in 2014 and on endoscopy in 2016. Upon review of EMR, pathology results pathology results of colon biopsy are normal, as well as the results from the upper endoscopy. 11/22 patient is complaining of persistent nausea and abdominal pain especially after eating. I will consult GI and place patient on clear liquid diet. 2. Dehydration: secondary to above, ongoing symptoms x2 wks, unable to take adequate PO. -Patient now with sodium trending up at 147. Will change IV fluids to 1/2 ns. 11/22 the patient still has hyponatremia. We'll discontinue 1/2 ns and start the patient on 1/4 NS. Continue to monitor BMP. 3. Intractable Nausea/Vomiting: resolved -Continue Zofran when necessary. Patient still has persistent nausea. 4. DVT Prophylaxis:bilat SCDs, Will Place patient on heparin SQ. 5. Hypotension: The patient has chronic low blood pressure. However on review of medical records her systolic blood pressure usually in the 90s. We'll give 500 mL of normal saline given that patient's systolic blood pressures in the 80s. 11/22 hypotension improved after fluid bolus. Continue to monitor vital signs. Discharge Planning Continue to monitor in the medical floor. Patient still with significant abdominal pain, nausea and hypernatremia. GI consulted. Carlton Reyes MD Nov 22, 2016 15:19
[2016-11-22] MEDS: POTASSIUM CHLORIDE INJ 20 MEQ, SODIUM CHLORIDE 23.4% INJ 38.5 MEQ in WATER STERILE FOR ... IV SCH (15:49)
[2016-11-22 16:35] VITALS: BP 104/60; PULSE 62; RESP 18; TEMP 98; O2SAT 96
[2016-11-22 20:00] VITALS: BP 116/60; PULSE 69; RESP 16; TEMP 98.3; O2SAT 97
[2016-11-23] VITALS (7 sets, daily range): BP systolic 83–153; BP diastolic 51–71; PULSE 57–75; RESP 16–20; TEMP 97.6–98.4; O2SAT 93–100
[2016-11-23] MEDS: PROCHLORPERAZINE INJ 10 MG/2 ML VIAL IV PUSH PRN ×4 (01:36→22:20)
[2016-11-23] MEDS: POTASSIUM CHLORIDE INJ 20 MEQ, SODIUM CHLORIDE 23.4% INJ 38.5 MEQ in WATER STERILE FOR ... IV SCH (02:42)
[2016-11-23] MEDS: metroNIDAZOLE 500 MG INJ 100 ML IV SCH ×3 (06:43→22:19)
[2016-11-23] MEDS: KETOROLAC TROMETHAMINE 30 MG/ML (IVP) VIAL IV PUSH SCH ×4 (06:44→22:20)
[2016-11-23 07:22] LABS: BICARBONATE 30.6 MEQ/L (21.0-32.0); MAGNESIUM 1.9 MG/DL (1.5-2.5); POTASSIUM 3.6 MEQ/L (3.5-5.1)
[2016-11-23] MEDS: DOCUSATE SODIUM 50 MG/SENNA 8.6 MG TAB PO SCH ×2 (08:38→20:18)
[2016-11-23] MEDS: SODIUM CHLORIDE 0.9% FLUSH 10 ML FLUSH IV FLUSH SCH ×2 (09:00→20:18)
--- NOTE | 2016-11-23 10:32 | PD.CONS ---
HPI History of Present Illness This is a 66 year old female patient with a history of recurrent C difficile colitis in January of 2016. She was then seen in January of 2016 with generalized weakness, nausea, vomiting, abnormal weight loss, and abdominal pain. She was evaluated with EGD (01/15/16)---> there was a short stricture at the gastroesophageal junction; multiple biopsies were performed. The stricture was dilated using a 17 mm (51fr) savary dilator over the guidewire, duodenal inflammation was found in the bulb and second portion of the duodenum, retroflexed views revealed no abnormalities. Pathology with duodenal mucosa without significant histologic abnormality, gastroesophageal junction with squamous and gastric type mucosa with features of superficial mucosal erosion. She did not agree to a colonoscopy at that time. The patient tells me that she has had CDifficile colitis once a year for the past 3 years. She states that she last had this last year and according to the EMR, she was treated with Flagyl. She was also evaluated back in March of [address] scan showing a short segment abnormality involving the sigmoid colon having an apple core appearance. Colonoscopy (03/05/15)---> there was moderate diverticulosis noted in the sigmoid colon, retroflexed views revealed medium internal hemorrhoids, external hemorrhoids. Pathology revealed colonic mucosa without significant histopathologic abnormality. Repeat colonoscopy was recommended in 4-6 weeks. She reports that she did not have this done. She now presents to the ER for evaluation of nausea, vomiting, abdominal pain x 2 weeks. Abdomen/Pelvis CT (11/19/16)----> Mild proximal enteritis and proximal/mid colitis as above, nonspecific but presumably infectious. Also mild sigmoid colon diverticulitis. No abscess, perforation or obstruction. She states that her symptoms began about 2-3 weeks ago, with nausea and vomiting and abdominal pain. Her abdominal pain is mainly in her epigastric area and she describes this as an intermittent stabbing pain that seems to be aggravated by both po intake and an empty stomach. She also has had associated nausea and vomiting with bilious material. She usually will have rare heartburn or reflux , but states she has been having significant heartburn since yesterday. She denies any fever or chills. She denies any diarrhea or blood in her stool. She does report that she has lost 11 lbs since her symptoms began 3 weeks ago. She has not tried any medications at home. She denies any recent antibiotic use , travel, suspicious food or sick contacts. She reports that she would be agreeable to a colonoscopy if needed once her nausea improved, but only if she could have a bowel prep other than the Golytely. PFSH Past Medical History Anxiety, Depression Fibromyalgia Schizophrenia Asthma Esophageal stricture Gastritis/duodenitis Diverticulosis Recurrent CDifficile colitis Past Surgical History Cholecystectomy EGD Colonoscopy Coded Allergies: Benadryl (Verified Allergy, Severe, 11/19/16) MEDICATION GIVE OPPOSITE EFFECT Penicillin (Verified Allergy, Severe, 11/19/16) Sulfa (Verified Allergy, Severe, RASH, 11/19/16) Codeine (Verified Allergy, Intermediate, Nausea/Vomiting, 11/19/16) Uncoded Allergies: NARCOTICS (Allergy, Severe, 11/23/09) SEVERE ABDOMINAL PAIN TAPES (Allergy, Mild, 05/20/08) Medications Allergies Coded Allergies Type Severity Reaction Last Updated Verified Benadryl Allergy Severe 11/19/16 Yes Penicillin Allergy Severe 11/19/16 Yes Sulfa Allergy Severe RASH 11/19/16 Yes Codeine Allergy Intermediate Nausea/Vomiting 11/19/16 Yes Uncoded Allergies Type Severity Reaction Last Updated Verified NARCOTICS Allergy Severe 11/23/09 TAPES Allergy Mild 05/20/08 Active Scripts Medications Dose Route/Sig Days Date Category No Active Prescriptions or Reported Medications Rx Family History Mother: Pancreatic cancer; at 72 yo Father: ND; at 78 yo Social History 20 pack year smoking hx, quit 16 years ago. No etoh or illicit drug Review of Systems Constitutional: COMPLAINS OF: Fatigue, Weight loss, DENIES: Fever, Chills Respiratory: DENIES: Cough Gastrointestinal: COMPLAINS OF: Abdominal pain, Nausea, Vomiting, Anorexia, Heartburn, DENIES: Black stools, Bloody stools, Constipation, Diarrhea, Swelling of Abdomen Musculoskeletal: COMPLAINS OF: Muscle aches, DENIES: Joint pain Hematologic/lymphatic: COMPLAINS OF: Bruising Neurologic: DENIES: Headache Psychiatric: DENIES: Confusion GI Exam Vitals I&O Vital Signs Date Time Temp Pulse Resp B/P Pulse Ox O2 Delivery O2 Flow Rate FiO2 11/23/16 08:00 Room Air 11/23/16 08:00 97.7 64 20 86/51 93 11/23/16 04:32 97.7 66 16 83/52 98 11/23/16 00:36 97.6 57 16 89/53 100 11/23/16 00:17 16 11/22/16 20:00 98.3 69 16 116/60 97 11/22/16 20:00 97 Room Air 11/22/16 16:35 98.0 62 18 104/60 96 11/22/16 12:00 98.2 70 18 102/58 95 I/O 11/22/16 11/22/16 11/22/16 11/23/16 11/23/16 11/23/16 07:00 15:00 23:00 07:00 15:00 23:00 Intake Total 995 ml 720 ml 1948 ml 500 ml Output Total 3 ml 520 ml Balance 995 ml 720 ml 1945 ml -20 ml Intake Oral 0 ml 720 ml 1150 ml 500 ml IV Total 995 ml 798 ml Output Urine Total 3 ml 520 ml # Voids 4 5 # Bowel Movements 0 1 1 0 Imaging Last Impressions Abdomen/Pelvis CT 11/19/162112 Signed Impressions: Service Date/Time: Saturday, November 19, 2016 22:13 - CONCLUSION: Mild proximal enteritis and proximal/mid colitis as above, nonspecific but presumably infectious. Also mild sigmoid colon diverticulitis. No abscess, perforation or obstruction. Rodriguez Aparicio MD Laboratory Test 11/23/16 05:30 Sodium Level 145 MEQ/L Potassium Level 3.6 MEQ/L Chloride Level 107 MEQ/L Carbon Dioxide Level 30.6 MEQ/L Anion Gap 7 MEQ/L Blood Urea Nitrogen 4 MG/DL Creatinine 0.72 MG/DL Estimat Glomerular Filtration 82 ML/MIN Rate Random Glucose 99 MG/DL Calcium Level 8.1 MG/DL Phosphorus Level 2.2 MG/DL Magnesium Level 1.9 MG/DL Physical Examination HEENT: Normocephalic; atraumatic; no jaundice. CHEST: CTA CARDIAC: RRR. ABDOMEN: Soft, nondistended, nontender; no hepatosplenomegaly; bowel sounds are present in all four quadrants. EXTREMITIES: No clubbing, cyanosis, or edema. SKIN: Normal; no rash; no jaundice. [employer]: No focal deficits; alert and oriented times three. Assessment and Plan Plan ASSESSMENT: - Nausea, vomiting, abdominal pain. Pt has had this pain intermittently, stays the same pain as when she had her CDiff. She was hospitalized last January for the same. EGD (01/15/16)---> there was a short stricture at the gastroesophageal junction; multiple biopsies were performed. The stricture was dilated using a 17 mm (51fr) savary dilator over the guidewire, duodenal inflammation was found in the bulb and second portion of the duodenum, retroflexed views revealed no abnormalities. Pathology with duodenal mucosa without significant histologic abnormality, gastroesophageal junction with squamous and gastric type mucosa with features of superficial mucosal erosion. She did not agree to a colonoscopy at that time. CDiff was positive and she was treated with Flagyl at that time. She has not had a colonoscopy as recommended. She last had one (03/05/15)---> there was moderate diverticulosis noted in the sigmoid colon, retroflexed views revealed medium internal hemorrhoids, external hemorrhoids. Pathology revealed colonic mucosa without significant histopathologic abnormality. Repeat colonoscopy was recommended in 4-6 weeks. She reports that she did not have this done because she did not want the Golytely prep. She would be agreeable if she could take a different prep. Celiac panel in past was negative. WBC 6.3. Lipase and LFT okay. Cipro/Flagyl. - Abnormal imaging with proximal enteritis with proximal/mid colitis. Abdomen/ Pelvis CT (11/19/16)----> Mild proximal enteritis and proximal/mid colitis as above, nonspecific but presumably infectious. Also mild sigmoid colon diverticulitis. No abscess, perforation or obstruction. - Anemia. 9.9/28.4. - [place]. Improved. - Anxiety, Depression, Fibromyalgia, Schizophrenia, Asthma per primary. - Hx Recurrent CDiff Colitis. States that she has 3 episodes of CDiff, once a year x 3 years. I only have record of the episode in January of 2016, at which time she was treated with Flagyl. She denies any current diarrhea or recent abx use. PLAN: - Clear liquids - D/C Cipro (pt with recurrent cdiff hx) - Cont. Flagyl. - Cont. IVF - Add PPI - CBC, CMP in am - CDiff, Stool studies. - Consider EGD/Colonoscopy with magnesium citrate prep once stool studies obtained, able to tolerate bowel prep, and another day with IVF for her [place] - Pt seen and examined by Dr. Miguel and myself and this note is written on his behalf Jayleen Valles Nov 23, 2016 10:32
[2016-11-23] MEDS: CIPROFLOXACIN 400 MG PREMIX 200 ML IV SCH (11:14)
[2016-11-23] MEDS: PANTOPRAZOLE SODIUM 40 MG VIAL IV PUSH SCH (14:31)
[2016-11-23 14:40] LABS: AUTOMATED NEUTROPHIL # 3.3 TH/MM3 (1.8-7.7); BASOPHIL % 0.7 % (0.0-2.0); EOSINOPHIL # 0.2 TH/MM3 (0-0.4); HEMATOCRIT 39.9 % (35.0-46.0); HEMO FLAGS DIFF FINAL; LYMPH % 31.6 % (9.0-44.0); LYMPHOCYTE # 1.8 TH/MM3 (1.0-4.8); MEAN CELL VOLUME 94.9 FL (80.0-100.0); MEAN CORPUSCULAR HGB CONC 33.7 % (32.0-36.0); MONO % 5.7 % (0.0-8.0); PLATELET COUNT 170 TH/MM3 (150-450); RED BLOOD COUNT 4.21 MIL/MM3 (4.00-5.30); RED CELL DISTRIBUTION WIDTH 12.5 % (11.6-17.2); WHITE BLOOD COUNT 5.6 TH/MM3 (4.0-11.0)
[2016-11-23 15:12] LABS: BICARBONATE 33.5 MEQ/L (21.0-32.0); POTASSIUM 4.3 MEQ/L (3.5-5.1)
--- NOTE | 2016-11-23 17:09 | HHI.PR ---
Subjective Remarks Pt evaluated earlier this pm states that her abdominal pain is 4/10 and is much improved. no BM today. She is not too excited about getting a colonoscopy and hopes to be able to do a different prep. denies any nausea or vomiting Objective Vitals Vital Signs Date Time Temp Pulse Resp B/P Pulse Ox O2 Delivery O2 Flow Rate FiO2 11/23/16 16:00 97.6 75 20 91/52 100 11/23/16 12:00 97.8 67 20 86/53 95 11/23/16 08:00 Room Air 11/23/16 08:00 97.7 64 20 86/51 93 11/23/16 04:32 97.7 66 16 83/52 98 11/23/16 00:36 97.6 57 16 89/53 100 11/23/16 00:17 16 11/22/16 20:00 98.3 69 16 116/60 97 11/22/16 20:00 97 Room Air I/O 11/22/16 11/22/16 11/22/16 11/23/16 11/23/16 11/23/16 07:00 15:00 23:00 07:00 15:00 23:00 Intake Total 995 ml 720 ml 1948 ml 500 ml 360 ml Output Total 3 ml 520 ml Balance 995 ml 720 ml 1945 ml -20 ml 360 ml Intake Oral 0 ml 720 ml 1150 ml 500 ml 360 ml IV Total 995 ml 798 ml Output Urine Total 3 ml 520 ml # Voids 4 5 2 # Bowel Movements 0 1 1 0 2 Result Diagram: 11/23/16 1356 11/23/16 1356 Imaging Last Impressions Abdomen/Pelvis CT 11/19/162112 Signed Impressions: Service Date/Time: Saturday, November 19, 2016 22:13 - CONCLUSION: Mild proximal enteritis and proximal/mid colitis as above, nonspecific but presumably infectious. Also mild sigmoid colon diverticulitis. No abscess, perforation or obstruction. Rodriguez Aparicio MD Objective Remarks GENERAL: thin appearing female CARDIOVASCULAR: Regular rate and rhythm without murmurs RESPIRATORY: Breath sounds equal bilaterally. No accessory muscle use. GASTROINTESTINAL: Abdomen soft, nondistended, minimal tenderness w deep palpation to abdomen today MUSCULOSKELETAL: No edema. A/P Problem List: (1) Colitis ICD Code: K52.9 Status: Acute (2) Dehydration ICD Code: E86.0 Status: Acute (3) Intractable nausea and vomiting ICD Code: R11.2 Status: Resolved Assessment and Plan 66 yo female with: 1. Colitis: Pancolitis. CT Abd/Pelvis w/ mild proximal enteritis and proximal /mid colitis minimally infectious, mild sigmoid colon diverticulitis, no abscess , perforation or obstruction noted, see imaging above. - off Cipro per GI and continue Flagyl Diet as tolerated. - Toradol for pain control - Patient states she had a colonoscopy in 2014 and on endoscopy in 2015. Upon review of EMR, pathology results pathology results of colon biopsy are normal, as well as the results from the upper endoscopy. GI following and recommend EGD/Colonoscopy w magnesium citrate prep once stool studies obtained, able to tolerate bowel prep, and another day with IVF for her [place] 2. Dehydration: secondary to above, ongoing symptoms x2 wks, unable to take adequate PO. -Na 145, stable. 11/23 pt's sodium level corrected. switch to NS @75ml/hr. Continue to monitor BMP. 3. Intractable Nausea/Vomiting: resolved -Continue Zofran when necessary. 4. DVT Prophylaxis:bilat SCDs, heparin SQ. 5. Hypotension: The patient has chronic low blood pressure. However on review of medical records her systolic blood pressure usually in the 90s. We'll give 500 mL of normal saline given that patient's systolic blood pressures in the 80s. 11/22 hypotension improved after fluid bolus. Continue to monitor vital signs. Discharge Planning Tamar Bellamy MD Nov 23, 2016 17:09
[2016-11-23] MEDS: SODIUM CHLOR 0.9% 1000 ML INJ 1,000 ML IV SCH ×2 (20:18→22:21)
[2016-11-23] MEDS: HEPARIN SODIUM - SQ 10,000 UNITS/ML VIAL SQ SCH ×2 (20:18→20:23)
[2016-11-23] MEDS ORDERED: SODIUM CHLORID 0.9% 500 ML INJ 500 ML IV ONE (22:00)
[2016-11-24] VITALS (7 sets, daily range): BP systolic 80–97; BP diastolic 45–55; PULSE 56–75; RESP 16–18; TEMP 97.4–98.4; O2SAT 95–99
[2016-11-24] MEDS: KETOROLAC TROMETHAMINE 30 MG/ML (IVP) VIAL IV PUSH SCH ×4 (04:58→23:01)
[2016-11-24] MEDS: SODIUM CHLOR 0.9% 1000 ML INJ 1,000 ML IV SCH (04:58)
[2016-11-24] MEDS: metroNIDAZOLE 500 MG INJ 100 ML IV SCH ×3 (04:58→23:00)
[2016-11-24] MEDS: DOCUSATE SODIUM 50 MG/SENNA 8.6 MG TAB PO SCH ×2 (08:28→21:00)
[2016-11-24] MEDS: SODIUM CHLORIDE 0.9% FLUSH 10 ML FLUSH IV FLUSH SCH ×2 (08:28→21:00)
[2016-11-24] MEDS: PANTOPRAZOLE SODIUM 40 MG VIAL IV PUSH SCH (08:28)
[2016-11-24] MEDS: HEPARIN SODIUM - SQ 10,000 UNITS/ML VIAL SQ SCH ×2 (08:28→21:00)
[2016-11-24 09:38] LABS: BICARBONATE 30.6 MEQ/L (21.0-32.0); POTASSIUM 4.1 MEQ/L (3.5-5.1)
[2016-11-24 10:19] LABS: C. DIFF EPI 027 PRESUMPTIVE NEGATIVE (NEGATIVE); C. DIFF TOXIN PCR NEGATIVE (NEGATIVE)
--- NOTE | 2016-11-24 11:38 | HHI.PR ---
Subjective Remarks Pt feeling much better, currently denies any abdominal pain, nausea or vomiting. wants to eat food. hoping that GI will clear her Objective Vitals Vital Signs Date Time Temp Pulse Resp B/P Pulse Ox O2 Delivery O2 Flow Rate FiO2 11/24/16 08:00 Room Air 11/24/16 08:00 97.4 69 16 95/50 98 11/24/16 04:00 97.7 56 18 80/47 97 11/24/16 00:00 98.0 70 18 82/45 97 11/23/16 21:15 98.4 61 16 87/51 99 11/23/16 19:00 Room Air 11/23/16 16:00 97.6 75 20 91/52 100 11/23/16 12:00 97.8 67 20 86/53 95 I/O 11/23/16 11/23/16 11/23/16 11/24/16 11/24/16 11/24/16 06:59 14:59 22:59 06:59 14:59 22:59 Intake Total 500 ml 360 ml 720 ml 1202 ml Output Total 520 ml Balance -20 ml 360 ml 720 ml 1202 ml Intake Oral 500 ml 360 ml 720 ml 120 ml IV Total 1082 ml Output Urine Total 520 ml # Voids 2 1 2 # Bowel Movements 0 2 0 0 Result Diagram: 11/23/16 1356 11/24/16 0806 Imaging Last Impressions Abdomen/Pelvis CT 11/19/162112 Signed Impressions: Service Date/Time: Saturday, November 19, 2016 22:13 - CONCLUSION: Mild proximal enteritis and proximal/mid colitis as above, nonspecific but presumably infectious. Also mild sigmoid colon diverticulitis. No abscess, perforation or obstruction. Rodriguez Aparicio MD Objective Remarks GENERAL: thin appearing female CARDIOVASCULAR: Regular rate and rhythm without murmurs RESPIRATORY: Breath sounds equal bilaterally. No accessory muscle use. GASTROINTESTINAL: Abdomen soft, nondistended, non tender w deep palpation to abdomen today MUSCULOSKELETAL: No edema. A/P Problem List: (1) Colitis ICD Code: K52.9 Status: Acute (2) Dehydration ICD Code: E86.0 Status: Acute (3) Intractable nausea and vomiting ICD Code: R11.2 Status: Resolved Assessment and Plan 66 yo female with: 1. Colitis: Pancolitis. CT Abd/Pelvis w/ mild proximal enteritis and proximal /mid colitis minimally infectious, mild sigmoid colon diverticulitis, no abscess , perforation or obstruction noted, see imaging above. - off Cipro per GI and continue Flagyl Diet as tolerated. - Toradol for pain control - Patient states she had a colonoscopy in 2014 and on endoscopy in 2016. Upon review of EMR, pathology results pathology results of colon biopsy are normal, as well as the results from the upper endoscopy. GI following and recommend EGD/Colonoscopy w magnesium citrate prep once stool studies obtained, able to tolerate bowel prep, will defer to GI regarding advancing diet 2. Dehydration: secondary to above, ongoing symptoms x2 wks, unable to take adequate PO. -Na 145, stable. 11/24 pt's sodium level back to 147. switch to 1/2NS @75ml/hr. Continue to monitor BMP. 3. Intractable Nausea/Vomiting: resolved -Continue Zofran when necessary. 4. DVT Prophylaxis:bilat SCDs, heparin SQ. 5. Hypotension: much improved. Cdiff pending. Discharge Planning awaiting recs from Tamar Andrade MD Nov 24, 2016 11:38
[2016-11-24] MEDS: SODIUM CHLOR 0.45% 1000 ML INJ 1,000 ML IV SCH ×2 (12:26→23:00)
--- NOTE | 2016-11-24 14:12 | HHI.GIFU ---
Subjective Remarks Resting in bed. No n/v. Wants to eat. Feeling much better. States she is okay with EGD but absolutely will not have colonoscopy unless she can have a tablet bowel prep. Explained to her that in the hospital, she can have magnesium citrate or golytely prep, but she absolutely refuses to have colonoscopy. Does want to proceed with EGD. Requesting information on a "healthy diet plan" she can follow at home. Objective Vitals I&O Vital Signs Date Time Temp Pulse Resp B/P Pulse Ox O2 Delivery O2 Flow Rate FiO2 11/24/16 12:00 98.2 63 16 89/50 98 11/24/16 08:00 Room Air 11/24/16 08:00 97.4 69 16 95/50 98 11/24/16 04:00 97.7 56 18 80/47 97 11/24/16 00:00 98.0 70 18 82/45 97 11/23/16 21:15 98.4 61 16 87/51 99 11/23/16 19:00 Room Air 11/23/16 16:00 97.6 75 20 91/52 100 I/O 11/23/16 11/23/16 11/23/16 11/24/16 11/24/16 11/24/16 07:00 15:00 23:00 07:00 15:00 23:00 Intake Total 500 ml 360 ml 720 ml 1202 ml Output Total 520 ml Balance -20 ml 360 ml 720 ml 1202 ml Intake Oral 500 ml 360 ml 720 ml 120 ml IV Total 1082 ml Output Urine Total 520 ml # Voids 2 1 2 # Bowel Movements 0 2 0 0 Laboratory Laboratory Tests Test 11/24/16 11/24/16 07:30 08:06 Stool C. difficile Toxin (PCR) NEGATIVE Stl C. difficile Toxin PRESUMPTIVE Epiderm 027 NEGATIVE Sodium Level 147 Potassium Level 4.1 Chloride Level 109 Carbon Dioxide Level 30.6 Anion Gap 7 Blood Urea Nitrogen 3 Creatinine 0.85 Estimat Glomerular Filtration 67 Rate Random Glucose 102 Calcium Level 8.6 Imaging Last Impressions Abdomen/Pelvis CT 11/19/162112 Signed Impressions: Service Date/Time: Saturday, November 19, 2016 22:13 - CONCLUSION: Mild proximal enteritis and proximal/mid colitis as above, nonspecific but presumably infectious. Also mild sigmoid colon diverticulitis. No abscess, perforation or obstruction. Rodriguez Aparicio MD Physical Exam HEENT: Normocephalic; atraumatic; no jaundice. CHEST: CTA CARDIAC: RRR ABDOMEN: Soft, nondistended, nontender; no hepatosplenomegaly; bowel sounds are present in all four quadrants. EXTREMITIES: No clubbing, cyanosis, or edema. SKIN: Normal; no rash; no jaundice. C[employer] APPLICATIONS ASSOCIATE: No focal deficits; alert and oriented times three. Assessment and Plan Plan ASSESSMENT: - Nausea, vomiting, abdominal pain. Pt has had this pain intermittently, stays the same pain as when she had her CDiff. She was hospitalized last January for the same. EGD (01/15/16)---> there was a short stricture at the gastroesophageal junction; multiple biopsies were performed. The stricture was dilated using a 17 mm (51fr) savary dilator over the guidewire, duodenal inflammation was found in the bulb and second portion of the duodenum, retroflexed views revealed no abnormalities. Pathology with duodenal mucosa without significant histologic abnormality, gastroesophageal junction with squamous and gastric type mucosa with features of superficial mucosal erosion. She did not agree to a colonoscopy at that time. CDiff was positive and she was treated with Flagyl at that time. She has not had a colonoscopy as recommended. She last had one (03/05/15)---> there was moderate diverticulosis noted in the sigmoid colon, retroflexed views revealed medium internal hemorrhoids, external hemorrhoids. Pathology revealed colonic mucosa without significant histopathologic abnormality. Repeat colonoscopy was recommended in 4-6 weeks. She reports that she did not have this done because she did not want the [employer] prep. She would be agreeable if she could take a different prep. Celiac panel in past was negative. She is feeling better. She would like to proceed with EGD, but is refusing colonoscopy. Requesting regular diet. Flagyl. - Abnormal imaging with proximal enteritis with proximal/mid colitis. Abdomen/ Pelvis CT (11/19/16)----> Mild proximal enteritis and proximal/mid colitis as above, nonspecific but presumably infectious. Also mild sigmoid colon diverticulitis. No abscess, perforation or obstruction. Flagyl. CDIff negative. Refusing colonoscopy. - Anemia. 13.4/39.9. - [place]. Improved. - Anxiety, Depression, Fibromyalgia, Schizophrenia, Asthma per primary. - Hx Recurrent CDiff Colitis. States that she has 3 episodes of CDiff, once a year x 3 years. I only have record of the episode in January of 2016, at which time she was treated with Flagyl. She denies any current diarrhea or recent abx use. CDiff negative. PLAN: - Plan for egd in am - Obtain consents - NPO after MN - Hold heparin after MN - Regular diet until midnight. - PPI - Cont. Flagyl. - CBC, CMP in am - Await Stool studies. - Recommend colonoscopy. She is adamantly refusing colonoscopy although she wishes to pursue EGD - Pt seen and examined by Dr. Miguel and myself and this note is written on his behalf Received call from nurse, patient now refusing both egd and colonoscopy Jayleen Valles Nov 24, 2016 14:11
[2016-11-25 04:20] VITALS: BP 101/52; PULSE 67; RESP 16; TEMP 98.4; O2SAT 97
[2016-11-25] MEDS: metroNIDAZOLE 500 MG INJ 100 ML IV SCH (06:24)
[2016-11-25] MEDS: KETOROLAC TROMETHAMINE 30 MG/ML (IVP) VIAL IV PUSH SCH (06:25)
[2016-11-25] MEDS: PROCHLORPERAZINE INJ 10 MG/2 ML VIAL IV PUSH PRN (06:27)
[2016-11-25 08:00] VITALS: BP 103/57; PULSE 74; RESP 18; TEMP 98.3; O2SAT 100
[2016-11-25] MEDS: HEPARIN SODIUM - SQ 10,000 UNITS/ML VIAL SQ SCH (08:16)
[2016-11-25] MEDS: SODIUM CHLORIDE 0.9% FLUSH 10 ML FLUSH IV FLUSH SCH (08:16)
[2016-11-25] MEDS: DOCUSATE SODIUM 50 MG/SENNA 8.6 MG TAB PO SCH (08:16)
[2016-11-25] MEDS: PANTOPRAZOLE SODIUM 40 MG VIAL IV PUSH SCH (08:16)
[2016-11-25] MEDS: SODIUM CHLOR 0.45% 1000 ML INJ 1,000 ML IV SCH (08:17)
[2016-11-25 08:41] LABS: BICARBONATE 31.3 MEQ/L (21.0-32.0); POTASSIUM 3.6 MEQ/L (3.5-5.1)
[2016-11-25] MEDS ORDERED: METR-1 PO (10:46)
[2016-11-25] MEDS ORDERED: PROT40TA PO (10:47)
--- NOTE | 2016-11-25 10:48 | HHI.DS ---
Discharge Summary Admission Date Nov 19, 2016 at 22:46 Discharge Date: Nov 25, 2016 Admitting Diagnosis Enteritis, Diverticulitis, Nausea and Vomiting (1) Colitis ICD Code: K52.9 Diagnosis: Principal (2) Dehydration ICD Code: E86.0 Diagnosis: Principal (3) Intractable nausea and vomiting ICD Code: R11.2 Diagnosis: Principal Procedures none Brief History - From Admission This is a 66-year-old female with a PMH of Anxiety, Depression, Fibromyalgia, Schizophrenia and Asthma who presented to the ER with complaints of nausea, vomiting and abdominal pain for approx 2wks. Denies fever, chills, diarrhea or sick contacts. Has been unable to tolerate PO due to symptoms. On arrival, BP 137/64, HR 67, O2 sat 98% on RA, Afebrile. CBC unremarkable except for hemoconcentration, Hemoglobin 16.3. GFR 61. AG 20. UA negative. CT Abd/ Pelvis w/ mild proximal enteritis and proximal/mid colitis likely infectious and mild sigmoid colon diverticulitis. S/p Cipro/Flagyl. CBC/BMP: 11/23/16 1356 11/25/16 0646 Significant Findings Laboratory Tests Test 11/23/16 11/23/16 11/24/16 11/25/16 05:30 13:56 08:06 06:46 Blood Urea Nitrogen 4 MG/DL (7-18) 3 MG/DL (7-18) 3 MG/DL (7-18) 3 MG/DL (7-18) Estimat Glomerular Filtration 82 ML/MIN (>89) 61 ML/MIN (>89) 67 ML/MIN (>89) 84 ML/MIN (>89) Rate Calcium Level 8.1 MG/DL (8.5-10.1) Phosphorus Level 2.2 MG/DL (2.5-4.9) Chloride Level 108 MEQ/L 109 MEQ/L (98-107) (98-107) Carbon Dioxide Level 33.5 MEQ/L (21.0-32.0) Anion Gap 4 MEQ/L (5-15) Random Glucose 142 MG/DL (74-106) Sodium Level 147 MEQ/L (136-145) Imaging Last Impressions Abdomen/Pelvis CT 11/19/162112 Signed Impressions: Service Date/Time: Monday, November 19, 2016 22:13 - CONCLUSION: Mild proximal enteritis and proximal/mid colitis as above, nonspecific but presumably infectious. Also mild sigmoid colon diverticulitis. No abscess, perforation or obstruction. Rodriguez Aparicio MD PE at Discharge GENERAL: thin appearing female CARDIOVASCULAR: Regular rate and rhythm without murmurs RESPIRATORY: Breath sounds equal bilaterally. No accessory muscle use. GASTROINTESTINAL: Abdomen soft, nondistended, non tender w deep palpation to abdomen today MUSCULOSKELETAL: No edema. Pt update on day of discharge Pt feeling well this morning. denies any abdominal pain, CP/SOB/N/V. Tolerated her diet. She tells me that she doesn't want EGD/colonoscopy. Hospital Course 66 yo female with: 1. Colitis: Pancolitis. CT Abd/Pelvis w/ mild proximal enteritis and proximal /mid colitis minimally infectious, mild sigmoid colon diverticulitis, no abscess , perforation or obstruction noted, see imaging above. - off Cipro per GI and continue Flagyl. Pt given a script to complete 7 days of flagyl per GI. Diet as tolerated. - Patient states she had a colonoscopy in 2015 and on endoscopy in 2016. Upon review of EMR, pathology results pathology results of colon biopsy are normal, as well as the results from the upper endoscopy. GI did recommend EGD/ Colonoscopy however pt refused on multiple occasions and tells me that she would rather f/u as an outpatient. She wants to go home and think about it. 2. Dehydration: secondary to above, ongoing symptoms x2 wks, now resolved. hyponatremia resolved. 3. Intractable Nausea/Vomiting: resolved Pt Condition on Discharge: Stable Discharge Disposition: Discharge Home Discharge Time: > 30 minutes Discharge Instructions DIET: Follow Instructions for: Heart Healthy Diet Activities you can perform: Regular-No Restrictions Follow up Referrals: Gastroenterology - 1 Week PCP Follow-up - 1 Week New Medications: Metronidazole (Flagyl) 500 Mg Tab 500 MG PO TID Infection Days 3 Ref 0 TAB Pantoprazole (Protonix) 40 Mg Tab 40 MG PO DAILY Reflux #30 Ref 0 TAB Tamar Bellamy MD Nov 25, 2016 10:48
[2016-11-25 12:00] VITALS: BP 106/53; PULSE 64; RESP 18; TEMP 98.2; O2SAT 100
== END 2016-11-25 12:40 | disposition home or self-care (01) | DRG 392 ==
LOC: NEPE 20:44 → NEDA 22:46 → N04A 11-20 00:47
PROVIDERS: ADMIT Hospitalist; ATTEND Hospitalist
DX: K52.9 Noninfective gastroenteritis and colitis, unspecified (principal); E87.1 Hypo-osmolality and hyponatremia; I95.9 Hypotension, unspecified; K57.32 Diverticulitis of large intestine without perforation or abscess without bleeding; E86.0 Dehydration; R11.2 Nausea with vomiting, unspecified; M79.7 Fibromyalgia; J45.909 Unspecified asthma, uncomplicated; F20.9 Schizophrenia, unspecified; Z87.891 Personal history of nicotine dependence
CPT/HCPCS: 74177; 76937; 80048; 80053; 81001; 83690; 83735; 84100; 85025; 87205; 87493; 96374; 96375; 96376; C9113; J0744; J0780; J1644; J1885; J2270; J2405; J3480; J7030; J7040; Q9967

== ENCOUNTER 2016-12-01 00:11 | Emergency (ER) | payer MEDICARE, MEDICAID ==
[~2016-12-01] VITALS: Ht 149.9 cm; Wt 44.0 kg
[~2016-12-01 00:11] MED LIST changes: -CIPR500T2 PO; -LACTCHW3 CHEW; +METR-1 PO; -METR500T10 PO; -ONDA4TAB7 SL; +PROT40TA PO
[2016-12-01 00:13] VITALS: BP 133/63; PULSE 65; RESP 18; TEMP 98.6; O2SAT 100
[2016-12-01] MEDS ORDERED: SODIUM CHLOR 0.9% 1000 ML INJ 1,000 ML IV SCH (00:42)
[2016-12-01] MEDS ORDERED: metroNIDAZOLE 500 MG INJ 100 ML IV ONE (00:45)
[2016-12-01] MEDS ORDERED: KETOROLAC TROMETHAMINE 30 MG/ML (IVP) VIAL IVP ONE (00:45)
--- NOTE | 2016-12-01 00:47 | PD ---
HPI Chief Complaint: Abdominal Pain Time Seen by Provider: 00:36 Travel History International Travel<30 days: No Contact w/Intl Traveler<30days: No Traveled to known affect area: No History of Present Illness HPI C/O SUPRAPUBIC ABD PAIN ONSET THIS AFTERNOON, 01/12, NO N/V/D STATES HAS H/O DIVERTICULITIS. PAIN IS NONRADIATING AND NO AGGRAVATING OR ALLEVIATING FACTORS PFSH Past Medical History Asthma: Yes Anxiety: Yes Depression: Yes Cancer: No Cardiovascular Problems: No High Cholesterol: Yes Diminished Hearing: No Endocrine: No Fibromyalgia: Yes Gastrointestinal Disorders: Yes (HX: COLITIS, DIVERTICULITIS) GERD: Yes Genitourinary: No Hiatal Hernia: Yes Immune Disorder: No Implanted Vascular Access Dvce: No Musculoskeletal: No Neurologic: No Psychiatric: Yes (ANXIETY ,DEPRESSION.) Reproductive: No Respiratory: Yes (ASTHMA, BRONCHITIS) Schizophrenia: Yes (05/26/07 PT DID NOT MENTION THIS ) Menopausal: Yes : 2 Para: 2 Tubal Ligation: Yes Past Surgical History Abdominal Surgery: Yes (GALLBLADDER) Cardiac Surgery: No Section: Yes (X 2) Cholecystectomy: Yes Ear Surgery: No Endocrine Surgery: No Eye Surgery: No Genitourinary Surgery: No Gynecologic Surgery: Yes (2 c-sections) Neurologic Surgery: No Oral Surgery: No Thoracic Surgery: No Tonsillectomy: Yes Other Surgery: Yes Social History Alcohol Use: No Tobacco Use: No Substance Use: No Allergies-Medications (Allergen,Severity, Reaction): Coded Allergies: Benadryl (Verified Allergy, Severe, 12/01/16) MEDICATION GIVE OPPOSITE EFFECT Penicillin (Verified Allergy, Severe, 12/01/16) Sulfa (Verified Allergy, Severe, RASH, 12/01/16) Codeine (Verified Allergy, Intermediate, Nausea/Vomiting, 12/01/16) Uncoded Allergies: NARCOTICS (Allergy, Severe, 11/23/09) SEVERE ABDOMINAL PAIN TAPES (Allergy, Mild, 05/20/08) Reported Meds & Prescriptions Reported Meds & Active Scripts Active Protonix (Pantoprazole Sodium) 40 Mg Tab 40 Mg PO DAILY Flagyl (Metronidazole) 500 Mg Tab 500 Mg PO TID 3 Days Review of Systems Gastrointestinal: Positive: Abdominal Pain Physical Exam Narrative GENERAL: SKIN: Warm and dry. HEAD: Atraumatic. Normocephalic. EYES: Pupils equal and round. No scleral icterus. No injection or drainage. ENT: No nasal bleeding or discharge. Mucous membranes pink and moist. NECK: Trachea midline. No JVD. CARDIOVASCULAR: Regular rate and rhythm. RESPIRATORY: No accessory muscle use. Clear to auscultation. Breath sounds equal bilaterally. GASTROINTESTINAL: Abdomen soft, SUPRAPUBIC ARE MILD TTP, nondistended. NO REBOUND MUSCULOSKELETAL: Extremities without clubbing, cyanosis, or edema. No obvious deformities. NEUROLOGICAL: Awake and alert. No obvious cranial nerve deficits. Motor grossly within normal limits. Five out of 5 muscle strength in the arms and legs. Normal speech. PSYCHIATRIC: Appropriate mood and affect; insight and judgment normal. Data Data Last Documented VS Vital Signs Date Time Temp Pulse Resp B/P Pulse Ox O2 Delivery O2 Flow Rate FiO2 12/01/16 04:00 71 18 121/66 100 Room Air 12/01/16 00:13 98.6 Orders Complete Blood Count With Diff (12/01/16 00:42) Comprehensive Metabolic Panel (12/01/16 00:42) Lipase (12/01/16 00:42) Ct Abd/Pel W Iv Contrast(Rout) (12/01/16 00:42) Iv Access Insert/Monitor (12/01/16 00:42) Ecg Monitoring (12/01/16 00:42) Oximetry (12/01/16 00:42) NPO (12/01/16 00:42) Metronidazole 500 Mg Inj (Flagyl 500 Mg (12/01/16 00:45) Sodium Chlor 0.9% 1000 Ml Inj (Ns 1000 M (12/01/16 00:42) Ketorolac Inj (Toradol Inj) (12/01/16 00:45) Prochlorperazine Inj (Compazine Inj) (12/01/16 02:00) Iohexol 350 Inj (Omnipaque 350 Inj) (12/01/16 05:05) Labs Laboratory Tests Test 12/01/16 12/01/16 00:55 03:45 White Blood Count 10.9 TH/MM3 Red Blood Count 4.41 MIL/MM3 Hemoglobin 14.3 GM/DL Hematocrit 42.0 % Mean Corpuscular Volume 95.3 FL Mean Corpuscular Hemoglobin 32.5 PG Mean Corpuscular Hemoglobin 34.0 % Concent Red Cell Distribution Width 12.8 % Platelet Count 246 TH/MM3 Mean Platelet Volume 9.7 FL Neutrophils (%) (Auto) 64.7 % Lymphocytes (%) (Auto) 26.1 % Monocytes (%) (Auto) 7.9 % Eosinophils (%) (Auto) 0.7 % Basophils (%) (Auto) 0.6 % Neutrophils # (Auto) 7.1 TH/MM3 Lymphocytes # (Auto) 2.9 TH/MM3 Monocytes # (Auto) 0.9 TH/MM3 Eosinophils # (Auto) 0.1 TH/MM3 Basophils # (Auto) 0.1 TH/MM3 CBC Comment AUTO DIFF Differential Comment AUTO DIFF CONFIRMED Platelet Estimate NORMAL Platelet Morphology Comment NORMAL Sodium Level 147 MEQ/L Potassium Level 3.3 MEQ/L Chloride Level 115 MEQ/L Carbon Dioxide Level 26.9 MEQ/L Anion Gap 5 MEQ/L Blood Urea Nitrogen 10 MG/DL Creatinine 0.59 MG/DL Estimat Glomerular Filtration 103 ML/MIN Rate Random Glucose 87 MG/DL Calcium Level 8.1 MG/DL Total Bilirubin 0.6 MG/DL Aspartate Amino Transf 12 U/L (AST/SGOT) Alanine Aminotransferase 20 U/L (ALT/SGPT) Alkaline Phosphatase 38 U/L Total Protein 5.9 GM/DL Albumin 2.9 GM/DL Lipase 212 U/L [facility] Medical Decision Making Medical Screen Exam Complete: Yes Emergency Medical Condition: Yes Medical Record Reviewed: Yes Differential Diagnosis COLITIS VS DIVERTIC VS PERF VS ABSCESS VS UTI Narrative Course PATIENT FOUND TO HAVE NO LEUKOCYTOSIS, NO ABSCESS OR PERFORATION ON CT....ONLY SIGMOID DIVERTIC WILL D/C HOME ON PO ABX Diagnosis Primary Impression: Diverticulitis Qualified Code: K57.32 - Diverticulitis of large intestine without perforation or abscess without bleeding Scripts Promethazine (Phenergan)25 Mg [id number] Mg PO Q6H PRN (NAUSEA OR VOMITING) #12 TAB Ref 0 Prov:Morteza Hardy MD 12/01/16 Tramadol (Ultram)50 Mg Tab50 Mg PO Q4H PRN (PAIN) #28 TAB Prov:Morteza Hardy MD 12/01/16 Metronidazole (Flagyl)500 Mg Qld380 Mg PO TID #21 TAB Prov:Morteza Hardy MD 12/01/16 Ciprofloxacin 500 Mg Oiv300 Mg PO BID #14 TAB Prov:Morteza Hardy MD 12/01/16 Disposition: 01 DISCHARGE HOME Condition: Stable Morteza Hardy MD Dec 01, 2016 00:47
[2016-12-01 01:17] LABS: AUTOMATED NEUTROPHIL # 7.1 TH/MM3 (1.8-7.7); BASOPHIL # 0.1 TH/MM3 (0-0.2); BASOPHIL % 0.6 % (0.0-2.0); EOSINOPHIL # 0.1 TH/MM3 (0-0.4); EOSINOPHIL % 0.7 % (0.0-4.0); LYMPH % 26.1 % (9.0-44.0); LYMPHOCYTE # 2.9 TH/MM3 (1.0-4.8); MEAN CELL VOLUME 95.3 FL (80.0-100.0); MEAN CORPUSCULAR HEMOGLOBIN 32.5 PG (27.0-34.0); MONO % 7.9 % (0.0-8.0); NEUT % 64.7 % (16.0-70.0); PLATELET COUNT 246 TH/MM3 (150-450); RED BLOOD COUNT 4.41 MIL/MM3 (4.00-5.30); RED CELL DISTRIBUTION WIDTH 12.8 % (11.6-17.2); WHITE BLOOD COUNT 10.9 TH/MM3 (4.0-11.0)
[2016-12-01 01:23] LABS: HEMO FLAGS AUTO DIFF
[2016-12-01 01:28] VITALS: RESP 18; O2SAT 97
[2016-12-01] MEDS ORDERED: PROCHLORPERAZINE INJ 10 MG/2 ML VIAL IV PUSH ONE (02:00)
[2016-12-01 02:41] LABS: PLATELET ESTIMATE SMEAR NORMAL (NORMAL); PLATELET MORPHOLOGY NORMAL (NORMAL); SCAN/DIFF AUTO DIFF CONFIRMED
[2016-12-01 04:00] VITALS: BP 121/66; PULSE 71; RESP 18; O2SAT 100
[2016-12-01 04:44] LABS: ALT (GPT) 20 U/L (10-53); ANION GAP 5 MEQ/L (5-15); AST (GOT) 12 U/L (15-37); BICARBONATE 26.9 MEQ/L (21.0-32.0); BLOOD UREA NITROGEN 10 MG/DL (7-18); CHLORIDE 115 MEQ/L (98-107); GLOMERULAR FILTRATION RATE 103 ML/MIN (>89); POTASSIUM 3.3 MEQ/L (3.5-5.1); SODIUM (NA) 147 MEQ/L (136-145)
[2016-12-01 04:46] LABS: ALKALINE PHOSPHATASE 38 U/L (45-117); TOTAL BILIRUBIN ADULT 0.6 MG/DL (0.2-1.0)
[2016-12-01] MEDS ORDERED: IOHEXOL 350 MG/ML 10 ML VIAL (for RAD DIAG) IV ONE (05:05)
--- NOTE | 2016-12-01 06:21 | RADRPT ---
EXAM DATE/TIME: 12/01/2016 05:02 [facility] COMPARISON: CT ABDOMEN & PELVIS W CONTRAST, November 19, 2016, 22:13. INDICATIONS : Abdomen pain. Recent sigmoid colitis. IV CONTRAST: 70 cc Omnipaque 350 (iohexol) IV ORAL CONTRAST: No oral contrast ingested. RADIATION DOSE: 4.52 CTDIvol (mGy) MEDICAL HISTORY : Diverticulitis. Gastroesophageal reflux disease. Colitis SURGICAL HISTORY : Cholecystectomy. Tubal ligation. section. ENCOUNTER: Initial ACUITY: 1 day PAIN SCALE: 6/10 LOCATION: Left lower quadrant TECHNIQUE: Volumetric scanning of the abdomen and pelvis was performed. Using automated exposure control and ad justment of the mA and/or kV according to patient size, radiation dose was kept as low as reasonably achievable to obtain optimal diagnostic quality images. DICOM format image data is available electro nically for review and comparison. FINDINGS: LOWER LUNGS: The visualized lower lungs are clear. LIVER: Homogeneous density without lesion. There is no dilation of the biliary tree. No calcified gallston es. SPLEEN: Normal size without lesion. PANCREAS: Within normal limits. KIDNEYS: Normal in size and shape. There is no mass, stone or hydronephrosis. Stable 3.1 cm exophytic cyst m id pole left kidney. ADRENAL GLANDS: Within normal limits. VASCULAR: There is no aortic aneurysm. BOWEL/MESENTERY: Abnormal appearance to an 8 cm long segment of sigmoid colon with induration of the fat about the seg ment and poor delineation of the wall. There several small diverticula present in the sigmoid. The induration is a new finding when compared to prior CT. Moderate amount of free fluid in the cul-de-s ac and tracking up to the right paracolic gutter. No dilated loops of small bowel. ABDOMINAL WALL: Within normal limits. RETROPERITONEUM: There is no lymphadenopathy. BLADDER: No wall thickening or mass. REPRODUCTIVE: Within normal limits. INGUINAL: There is no lymphadenopathy or hernia. MUSCULOSKELETAL: Within normal limits for patient age. CONCLUSION: Findings suggest diverticulitis involving the proximal sigmoid colon. Induration of the fat about th e thickened wall segment is a new finding compared to prior. There is also a moderate size ascites i n the dependent pelvis and tracking up to the right paracolic gutter drant. Shelton Evans MD on December 01, 2016 at 6:12 Board Certified Radiologist. This report was verified electronically.
[2016-12-01] MEDS ORDERED: METR-1 PO (06:40)
[2016-12-01] MEDS ORDERED: PROM25TA10 PO (06:40)
[2016-12-01] MEDS ORDERED: CIPR500T2 PO (06:40)
[2016-12-01] MEDS ORDERED: ULTR50TA5 PO (06:40)
[2016-12-01] MEDS ORDERED: CIPROFLOXACIN 750 MG TAB PO ONE (06:45)
== END 2016-12-01 07:06 | disposition home or self-care (01) ==
LOC: NEPE 00:11
DX: K57.32 Diverticulitis of large intestine without perforation or abscess without bleeding (principal); J45.909 Unspecified asthma, uncomplicated; F41.9 Anxiety disorder, unspecified; F32.9 Major depressive disorder, single episode, unspecified; E78.00 Pure hypercholesterolemia, unspecified; M79.7 Fibromyalgia; K21.9 Gastro-esophageal reflux disease without esophagitis; F20.9 Schizophrenia, unspecified; Z79.899 Other long term (current) drug therapy
CPT/HCPCS: 74177; 80053; 83690; 85025; 96365; 96375; 99285; J0780; J1885; J7030; Q9967

== ENCOUNTER 2016-12-21 21:45 | Emergency (ER) | payer MEDICARE, MEDICAID ==
[~2016-12-21 21:45] MED LIST changes: +CIPR500T2 PO; +PROM25TA10 PO; +ULTR50TA5 PO
[2016-12-21 21:47] VITALS: BP 129/61; PULSE 58; RESP 16; TEMP 98.6; O2SAT 99
[2016-12-22 00:20] VITALS: BP 130/58; PULSE 62; RESP 16; O2SAT 98
[2016-12-22] MEDS ORDERED: SODIUM CHLOR 0.9% 1000 ML INJ 1,000 ML IV SCH (00:34)
[2016-12-22] MEDS ORDERED: SODIUM CHLORIDE 0.9% FLUSH 10 ML FLUSH IV FLUSH PRN (00:45)
[2016-12-22] MEDS ORDERED: KETOROLAC TROMETHAMINE 30 MG/ML (IVP) VIAL IV PUSH ONE (00:45)
--- NOTE | 2016-12-22 00:50 | PD ---
HPI Chief Complaint: Abdominal Pain Time Seen by Provider: 00:34 Travel History International Travel<30 days: No Contact w/Intl Traveler<30days: No Traveled to known affect area: No History of Present Illness HPI Patient is a 66 year old female who presents to the ER with c/o of abdominal pain. Reports that she has been having diffuse abdominal pain with nausea and vomiting and diarrhea for the past week and a half. Reports that she does have history of diverticulitis. Reports decreased by mouth intake over the past week and a half. Denies fevers. Reports chills. PFSH Past Medical History Asthma: Yes Anxiety: Yes Depression: Yes Cancer: No Cardiovascular Problems: No High Cholesterol: Yes Diminished Hearing: No Endocrine: No Fibromyalgia: Yes Gastrointestinal Disorders: Yes (HX: COLITIS, DIVERTICULITIS) GERD: Yes Genitourinary: No Hiatal Hernia: Yes Immune Disorder: No Implanted Vascular Access Dvce: No Musculoskeletal: No Neurologic: No Psychiatric: Yes (ANXIETY ,DEPRESSION.) Reproductive: No Respiratory: Yes (ASTHMA, BRONCHITIS) Schizophrenia: Yes (05/26/07 PT DID NOT MENTION THIS ) ?: Not Menopausal: Yes : 2 Para: 2 Tubal Ligation: Yes Past Surgical History Abdominal Surgery: Yes (GALLBLADDER) Cardiac Surgery: No Section: Yes (X 2) Cholecystectomy: Yes Ear Surgery: No Endocrine Surgery: No Eye Surgery: No Genitourinary Surgery: No Gynecologic Surgery: Yes (2 c-sections) Neurologic Surgery: No Oral Surgery: No Thoracic Surgery: No Tonsillectomy: Yes Other Surgery: Yes Social History Alcohol Use: No Tobacco Use: No Substance Use: No Allergies-Medications (Allergen,Severity, Reaction): Coded Allergies: Benadryl (Verified Allergy, Severe, 12/21/16) MEDICATION GIVE OPPOSITE EFFECT Penicillin (Verified Allergy, Severe, 12/21/16) Sulfa (Verified Allergy, Severe, RASH, 12/21/16) Codeine (Verified Allergy, Intermediate, Nausea/Vomiting, 12/21/16) Uncoded Allergies: NARCOTICS (Allergy, Severe, 11/23/09) SEVERE ABDOMINAL PAIN TAPES (Allergy, Mild, 05/20/08) Reported Meds & Prescriptions Reported Meds & Active Scripts Active Protonix (Pantoprazole Sodium) 40 Mg Tab 40 Mg PO DAILY Review of Systems General / Constitutional: Positive: Chills, No: Fever Eyes: No: Visual changes HENT: No: Headaches Cardiovascular: No: Chest Pain or Discomfort Respiratory: Positive: Cough, No: Shortness of Breath Gastrointestinal: Positive: Nausea, Vomiting, Diarrhea, Abdominal Pain Genitourinary: No: Dysuria Musculoskeletal: No: Pain Skin: No Rash Neurologic: No: Weakness Psychiatric: No: Depression Endocrine: No: Polydipsia Hematologic/Lymphatic: No: Easy Bruising Physical Exam Narrative GENERAL: Moderate distress SKIN: Focused skin assessment warm/dry. HEAD: Atraumatic. Normocephalic. EYES: Pupils equal and round. No scleral icterus. No injection or drainage. ENT: No nasal bleeding or discharge. Mucous membranes pink and moist. NECK: Trachea midline. No JVD. CARDIOVASCULAR: Regular rate and rhythm. No murmur appreciated. RESPIRATORY: No accessory muscle use. Clear to auscultation. Breath sounds equal bilaterally. GASTROINTESTINAL: Abdomen soft, diffusely tender abdomen with no peritoneal signs MUSCULOSKELETAL: No obvious deformities. No clubbing. No cyanosis. No edema. NEUROLOGICAL: Awake and alert. No obvious cranial nerve deficits. Motor grossly within normal limits. Normal speech. PSYCHIATRIC: Appropriate mood and affect; insight and judgment normal. Data Data Last Documented VS Vital Signs Date Time Temp Pulse Resp B/P Pulse Ox O2 Delivery O2 Flow Rate FiO2 12/22/16 04:12 55 18 120/58 98 Room Air 12/21/16 21:47 98.6 Orders Complete Blood Count With Diff (12/22/16 00:34) Comprehensive Metabolic Panel (12/22/16 00:34) Lipase (12/22/16 00:34) Urinalysis - C+S If Indicated (12/22/16 00:34) Iv Access Insert/Monitor (12/22/16 00:34) Oximetry (12/22/16 00:34) Sodium Chlor 0.9% 1000 Ml Inj (Ns 1000 M (12/22/16 00:34) Sodium Chloride 0.9% Flush (Ns Flush) (12/22/16 00:45) Ct Abd/Pel W Iv Contrast(Rout) (12/22/16 00:41) Chest, Single Ap (12/22/16 00:41) Ketorolac Inj (Toradol Inj) (12/22/16 00:45) Ondansetron Inj (Zofran Inj) (12/22/16 01:08) Iohexol 350 Inj (Omnipaque 350 Inj) (12/22/16 01:55) Ondansetron Inj (Zofran Inj) (12/22/16 03:00) Basic Metabolic Panel (Bmp) (12/22/16 03:27) Labs Laboratory Tests Test 12/22/16 12/22/16 12/22/16 01:00 03:53 04:08 White Blood Count 5.3 TH/MM3 Red Blood Count 4.79 MIL/MM3 Hemoglobin 15.7 GM/DL Hematocrit 45.9 % Mean Corpuscular Volume 95.8 FL Mean Corpuscular Hemoglobin 32.8 PG Mean Corpuscular Hemoglobin 34.2 % Concent Red Cell Distribution Width 13.1 % Platelet Count 233 TH/MM3 Mean Platelet Volume 8.4 FL Neutrophils (%) (Auto) 68.9 % Lymphocytes (%) (Auto) 24.8 % Monocytes (%) (Auto) 5.7 % Eosinophils (%) (Auto) 0.1 % Basophils (%) (Auto) 0.5 % Neutrophils # (Auto) 3.6 TH/MM3 Lymphocytes # (Auto) 1.3 TH/MM3 Monocytes # (Auto) 0.3 TH/MM3 Eosinophils # (Auto) 0.0 TH/MM3 Basophils # (Auto) 0.0 TH/MM3 CBC Comment DIFF FINAL Differential Comment Sodium Level 138 MEQ/L 140 MEQ/L Potassium Level 3.6 MEQ/L 3.3 MEQ/L Chloride Level 102 MEQ/L 105 MEQ/L Carbon Dioxide Level 15.9 MEQ/L 17.5 MEQ/L Anion Gap 20 MEQ/L 18 MEQ/L Blood Urea Nitrogen 8 MG/DL 8 MG/DL Creatinine 0.88 MG/DL 0.69 MG/DL Estimat Glomerular Filtration 65 ML/MIN 86 ML/MIN Rate Random Glucose 63 MG/DL 58 MG/DL Calcium Level 8.8 MG/DL 7.8 MG/DL Total Bilirubin 1.1 MG/DL Aspartate Amino Transf 24 U/L (AST/SGOT) Alanine Aminotransferase 19 U/L (ALT/SGPT) Alkaline Phosphatase 63 U/L Total Protein 8.3 GM/DL Albumin 4.3 GM/DL Lipase 127 U/L Urine Color LIGHT-YELLOW Urine Turbidity CLEAR Urine pH 5.5 Urine Specific [place] 1.050 Urine Protein TRACE mg/dL Urine Glucose (UA) NEG mg/dL Urine Ketones 150 mg/dL Urine Occult Blood NEG Urine Nitrite NEG Urine Bilirubin NEG Urine Urobilinogen LESS THAN 2.0 MG/DL Urine Leukocyte Esterase NEG Urine WBC 4 /hpf Urine Squamous Epithelial <1 /hpf Cells Urine Transitional Epithelial <1 /hpf Cells Urine Mucus FEW /lpf Microscopic Urinalysis Comment CULT NOT INDICATED MDM Medical Decision Making Medical Screen Exam Complete: Yes Emergency Medical Condition: Yes Interpretation(s) Vital Signs Date Time Temp Pulse Resp B/P Pulse Ox O2 Delivery O2 Flow Rate FiO2 12/22/16 00:20 62 16 130/58 98 Room Air 12/21/16 21:47 98.6 58 16 129/61 99 Room Air Differential Diagnosis Differential includes acute colitis, diverticulitis, gastritis, UTI, electrolyte abnormality Narrative Course Patient is a 66 year old female who presents to the ER with complaints of abdominal pain. Reports the abdominal pain has been ongoing for the past week and a half, reports that she was having increased nausea, vomiting and diarrhea with her symptoms. Patient reports history of colitis in the past. Plan to obtain x-ray chest to evaluate for possible for year. Lab work ordered. CT of the abdomen pelvis ordered for further evaluation of abdominal pain Vital Signs Date Time Temp Pulse Resp B/P Pulse Ox O2 Delivery O2 Flow Rate FiO2 12/22/16 04:12 55 18 120/58 98 Room Air 12/22/16 01:03 18 98 Room Air 12/22/16 00:20 62 16 130/58 98 Room Air 12/21/16 21:47 98.6 58 16 129/61 99 Room Air Laboratory Tests Test 12/22/16 12/22/16 12/22/16 01:00 03:53 04:08 White Blood Count 5.3 TH/MM3 (4.0-11.0) Red Blood Count 4.79 MIL/MM3 (4.00-5.30) Hemoglobin 15.7 GM/DL (11.6-15.3) Hematocrit 45.9 % (35.0-46.0) Mean Corpuscular Volume 95.8 FL (80.0-100.0) Mean Corpuscular Hemoglobin 32.8 PG (27.0-34.0) Mean Corpuscular Hemoglobin 34.2 % Concent (32.0-36.0) Red Cell Distribution Width 13.1 % (11.6-17.2) Platelet Count 233 TH/MM3 (150-450) Mean Platelet Volume 8.4 FL (7.0-11.0) Neutrophils (%) (Auto) 68.9 % (16.0-70.0) Lymphocytes (%) (Auto) 24.8 % (9.0-44.0) Monocytes (%) (Auto) 5.7 % (0.0-8.0) Eosinophils (%) (Auto) 0.1 % (0.0-4.0) Basophils (%) (Auto) 0.5 % (0.0-2.0) Neutrophils # (Auto) 3.6 TH/MM3 (1.8-7.7) Lymphocytes # (Auto) 1.3 TH/MM3 (1.0-4.8) Monocytes # (Auto) 0.3 TH/MM3 (0-0.9) Eosinophils # (Auto) 0.0 TH/MM3 (0-0.4) Basophils # (Auto) 0.0 TH/MM3 (0-0.2) CBC Comment DIFF FINAL Differential Comment Sodium Level 138 MEQ/L 140 MEQ/L (136-145) (136-145) Potassium Level 3.6 MEQ/L 3.3 MEQ/L (3.5-5.1) (3.5-5.1) Chloride Level 102 MEQ/L 105 MEQ/L (98-107) (98-107) Carbon Dioxide Level 15.9 MEQ/L 17.5 MEQ/L (21.0-32.0) (21.0-32.0) Anion Gap 20 MEQ/L (5-15) 18 MEQ/L (5-15) Blood Urea Nitrogen 8 MG/DL (7-18) 8 MG/DL (7-18) Creatinine 0.88 MG/DL 0.69 MG/DL (0.50-1.00) (0.50-1.00) Estimat Glomerular Filtration 65 ML/MIN (>89) 86 ML/MIN (>89) Rate Random Glucose 63 MG/DL 58 MG/DL (74-106) (74-106) Calcium Level 8.8 MG/DL 7.8 MG/DL (8.5-10.1) (8.5-10.1) Total Bilirubin 1.1 MG/DL (0.2-1.0) Aspartate Amino Transf 24 U/L (15-37) (AST/SGOT) Alanine Aminotransferase 19 U/L (10-53) (ALT/SGPT) Alkaline Phosphatase 63 U/L (45-117) Total Protein 8.3 GM/DL (6.4-8.2) Albumin 4.3 GM/DL (3.4-5.0) Lipase 127 U/L (73-393) Urine Color LIGHT-YELLOW (YELLW/STRAW) Urine Turbidity CLEAR (CLEAR) Urine pH 5.5 (5.0-8.5) Urine Specific [place] 1.050 (1.002-1.035) Urine Protein TRACE mg/dL (NEG-TRACE) Urine Glucose (UA) NEG mg/dL (NEG) Urine Ketones 150 mg/dL (NEG) Urine Occult Blood NEG (NEG) Urine Nitrite NEG (NEG) Urine Bilirubin NEG (NEG) Urine Urobilinogen LESS THAN 2.0 MG/DL (LESS THAN 2.0) Urine Leukocyte Esterase NEG (NEG) Urine WBC 4 /hpf (0-5) Urine Squamous Epithelial <1 /hpf (0-5) Cells Urine Transitional Epithelial <1 /hpf (NONE) Cells Urine Mucus FEW /lpf (OCC) Microscopic Urinalysis Comment CULT NOT INDICATED Last Impressions Chest X-Ray 12/22/1640 Signed Impressions: Service Date/Time: December 01:22 - CONCLUSION: Normal examination for a patient of this age. Jean Pierre Trevino MD Abdomen/Pelvis CT 12/22/1640 Signed Impressions: Service Date/Time: December 01:51 - CONCLUSION: 1. The previously noted acute diverticulitis of the sigmoid colon on the prior study of 12/01/2016 has improved on today's examination. Inflammatory changes are almost completely resolved. However, there continues to be a small amount of free fluid in the cul-de-sac. 2. There is a stable benign left renal cyst. 3. Otherwise, no other new or significant changes. Jean Pierre Trevino MD Patient reevaluated, patient feeling much better at this time. Reviewed all labs and studies with patient detail. CT the abdomen pelvis shows that she has previously noted to be cellulitis of the sigmoid colon which is improved. The inflammatory changes have almost completely resolved. Patient was hydrated well in the emergency room. Plan to discharge home with Zofran prescription. 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 Diagnosis Primary Impression: Abdominal pain Qualified Code: R10.84 - Generalized abdominal pain Additional Impression: Nausea & vomiting Qualified Code: R11.2 - Nausea and vomiting, intractability of vomiting not specified, unspecified vomiting type Patient Instructions: General Instructions Additional Instructions: please give a copy of pt's lab work and studies at discharge Please follow up with your primary care doctor Please follow up with your swimming pool plasterer helper Please return to ER as needed Drink plenty of fluids Med/Other Pt SpecificInfo: Prescription(s) given Scripts Ondansetron (Zofran)4 Mg Tab4 Mg PO Q6HR PRN (NAUSEA OR VOMITING) #20 TAB Ref 0 Prov:Jana Monge DO 12/22/16 Disposition: 01 DISCHARGE HOME Condition: Stable Jana Monge DO Dec 22, 2016 00:50
[2016-12-22 01:03] VITALS: RESP 18; O2SAT 98
[2016-12-22] MEDS ORDERED: ONDANSETRON HCL 4 MG/2 ML VIAL ONE (01:08)
[2016-12-22 01:12] LABS: AUTOMATED NEUTROPHIL # 3.6 TH/MM3 (1.8-7.7); BASOPHIL % 0.5 % (0.0-2.0); EOSINOPHIL % 0.1 % (0.0-4.0); HEMATOCRIT 45.9 % (35.0-46.0); HEMO FLAGS DIFF FINAL; LYMPH % 24.8 % (9.0-44.0); LYMPHOCYTE # 1.3 TH/MM3 (1.0-4.8); MEAN CELL VOLUME 95.8 FL (80.0-100.0); MEAN CORPUSCULAR HEMOGLOBIN 32.8 PG (27.0-34.0); MEAN CORPUSCULAR HGB CONC 34.2 % (32.0-36.0); MONO % 5.7 % (0.0-8.0); NEUT % 68.9 % (16.0-70.0); PLATELET COUNT 233 TH/MM3 (150-450); RED BLOOD COUNT 4.79 MIL/MM3 (4.00-5.30); RED CELL DISTRIBUTION WIDTH 13.1 % (11.6-17.2); WHITE BLOOD COUNT 5.3 TH/MM3 (4.0-11.0)
[2016-12-22 01:32] LABS: ALT (GPT) 19 U/L (10-53); ANION GAP 20 MEQ/L (5-15); AST (GOT) 24 U/L (15-37); BICARBONATE 15.9 MEQ/L (21.0-32.0); BLOOD UREA NITROGEN 8 MG/DL (7-18); CHLORIDE 102 MEQ/L (98-107); GLOMERULAR FILTRATION RATE 65 ML/MIN (>89); POTASSIUM 3.6 MEQ/L (3.5-5.1); SODIUM (NA) 138 MEQ/L (136-145)
[2016-12-22 01:34] LABS: ALKALINE PHOSPHATASE 63 U/L (45-117); TOTAL BILIRUBIN ADULT 1.1 MG/DL (0.2-1.0)
--- NOTE | 2016-12-22 01:52 | RADRPT ---
EXAM DATE/TIME: 12/22/2016 01:22 [facility] COMPARISON: No previous studies available for comparison. INDICATIONS : Chest and abdominal pain. MEDICAL HISTORY : Diverticulitis. Gastroesophageal reflux disease. SURGICAL HISTORY : Cholecystectomy. Tubal ligation. section. ENCOUNTER: Initial ACUITY: 1 day PAIN SCORE: 7/10 LOCATION: Bilateral lower chest FINDINGS: A single view of the chest demonstrates the lungs to be symmetrically aerated without evidence of mas s, infiltrate or effusion. The cardiomediastinal contours are unremarkable. Osseous structures are intact. CONCLUSION: Normal examination for a patient of this age. Jean Pierre Trevnio MD on December 22, 2016 at 1:50 Board Certified Radiologist. This report was verified electronically.
[2016-12-22] MEDS ORDERED: IOHEXOL 350 MG/ML 10 ML VIAL (for RAD DIAG) IV ONE (01:55)
--- NOTE | 2016-12-22 02:09 | RADRPT ---
EXAM DATE/TIME: 12/22/2016 01:51 [facility] COMPARISON: CT ABDOMEN & PELVIS W CONTRAST, December 01, 2016, 5:02. INDICATIONS : Abdomen pain with nausea and vomiting past 2 weeks. IV CONTRAST: 80 cc Omnipaque 350 (iohexol) IV ORAL CONTRAST: No oral contrast ingested. RADIATION DOSE: 4.67 CTDIvol (mGy) MEDICAL HISTORY : Diverticulitis. Gastroesophageal reflux disease. Colitis. SURGICAL HISTORY : Cholecystectomy. Tubal ligation. section. ENCOUNTER: Initial ACUITY: 2 weeks PAIN SCALE: 5/10 LOCATION: Abdomen. TECHNIQUE: Volumetric scanning of the abdomen and pelvis was performed. Using automated exposure control and ad justment of the mA and/or kV according to patient size, radiation dose was kept as low as reasonably achievable to obtain optimal diagnostic quality images. DICOM format image data is available electro nically for review and comparison. FINDINGS: LOWER LUNGS: The visualized lower lungs are clear. LIVER: Homogeneous density without lesion. There is no dilation of the biliary tree. No gallbladder, surgi riley removed.. SPLEEN: Normal size without lesion. PANCREAS: Within normal limits. KIDNEYS: Normal in size and shape. There is no mass, stone or hydronephrosis. Benign-appearing 3.4 cm left re nal cyst. ADRENAL GLANDS: Within normal limits. VASCULAR: There is no aortic aneurysm. BOWEL/MESENTERY: The bowel gas pattern is stable compared to the prior examination. No abnormal dilatation is demonstr ated. The previously noted diverticulitis of the sigmoid colon has improved. The previously noted inf lammatory changes have almost completely resolved. There continues to be a small amount of fluid deep in the pelvis. No definite new inflammatory changes are seen. There is no evidence of free air. No l oculated fluid collections are demonstrated. ABDOMINAL WALL: Within normal limits. RETROPERITONEUM: There is no lymphadenopathy. BLADDER: No wall thickening or mass. REPRODUCTIVE: Within normal limits. Small amount of fluid in the cul-de-sac. INGUINAL: There is no lymphadenopathy or hernia. MUSCULOSKELETAL: Within normal limits for patient age. Mild stable degenerative changes. CONCLUSION: 1. The previously noted acute diverticulitis of the sigmoid colon on the prior study of 12/01/2016 has improved on today's examination. Inflammatory changes are almost completely resolved. However, there continues to be a small amount of free fluid in the cul-de-sac. 2. There is a stable benign left renal cyst. 3. Otherwise, no other new or significant changes. Jean Pierre Trevino MD on December 22, 2016 at 2:01 Board Certified Radiologist. This report was verified electronically.
[2016-12-22] MEDS ORDERED: ONDANSETRON HCL 4 MG/2 ML VIAL IV PUSH ONE (03:00)
[2016-12-22 04:12] VITALS: BP 120/58; PULSE 55; RESP 18; O2SAT 98
[2016-12-22 04:40] LABS: BLOOD, URINE NEG (NEG); COMMENT (UR) CULT NOT INDICATED; CULTURE IF INDICATED CULT NOT INDICATED; GLUCOSE,URINE NEG (NEG); KETONE, URINE 150 mg/dL (NEG); MUCUS URINE FEW /lpf (OCC); NITRITE,URINE NEG (NEG); PH, URINE 5.5 (5.0-8.5); SQUAMOUS EPITHELIAL CELL URINE <1 /hpf (0-5); TRANSITIONAL EPI CELLS, URINE <1 /hpf; URINE COLOR LIGHT-YELLOW (YELLW/STRAW)
[2016-12-22 05:32] LABS: BICARBONATE 17.5 MEQ/L (21.0-32.0); POTASSIUM 3.3 MEQ/L (3.5-5.1)
[2016-12-22] MEDS ORDERED: ZOFR4TAB PO (05:40)
== END 2016-12-22 05:54 | disposition home or self-care (01) ==
LOC: NEPC 21:45
DX: R10.84 Generalized abdominal pain (principal); K57.92 Diverticulitis of intestine, part unspecified, without perforation or abscess without bleeding; N28.1 Cyst of kidney, acquired; J45.909 Unspecified asthma, uncomplicated; F41.9 Anxiety disorder, unspecified; F32.9 Major depressive disorder, single episode, unspecified; E78.00 Pure hypercholesterolemia, unspecified; M79.7 Fibromyalgia; K21.9 Gastro-esophageal reflux disease without esophagitis
CPT/HCPCS: 71010; 74177; 80048; 80053; 81001; 83690; 85025; 96361; 96374; 96375; 99285; J1885; J2405; J7030; Q9967

== ENCOUNTER 2017-05-05 17:19 | Emergency (ER) | payer MEDICARE, MEDICAID ==
[~2017-05-05] VITALS: Ht 147.3 cm; Wt 37.5 kg
[~2017-05-05 17:19] MED LIST changes: -CIPR500T2 PO; -METR-1 PO; -PROM25TA10 PO; -ULTR50TA5 PO; +ZOFR4TAB PO
[2017-05-05 17:20] VITALS: BP 109/54; PULSE 77; RESP 16; TEMP 99; O2SAT 99
--- NOTE | 2017-05-05 20:11 | PD ---
HPI Chief Complaint: Musculoskeletal Complaint Time Seen by Provider: 20:03 Travel History International Travel<30 days: No Contact w/Intl Traveler<30days: No Traveled to known affect area: No History of Present Illness HPI 66-year-old white female presents to emergency department with complains of left foot pain since Monday. She states that she does not recall having an injury. She states the pain has been progressive and now is severe. Worse with weightbearing. No alleviating factors. She states the pain radiates up into her ankle and calf. She denies any numbness or tingling. No trauma. PFSH Past Medical History Asthma: Yes Anxiety: Yes Depression: Yes Cancer: No Cardiovascular Problems: No High Cholesterol: Yes Diminished Hearing: No Endocrine: No Fibromyalgia: Yes Gastrointestinal Disorders: Yes (HX: COLITIS, DIVERTICULITIS) GERD: Yes Genitourinary: No Hiatal Hernia: Yes Immune Disorder: No Implanted Vascular Access Dvce: No Musculoskeletal: No Neurologic: No Psychiatric: Yes (ANXIETY ,DEPRESSION.) Reproductive: No Respiratory: Yes (ASTHMA, BRONCHITIS) Schizophrenia: Yes (05/26/07 PT DID NOT MENTION THIS ) Tetanus Vaccination: < 5 Years Menopausal: Yes : 2 Para: 2 Tubal Ligation: Yes Past Surgical History Abdominal Surgery: Yes (GALLBLADDER) Cardiac Surgery: No Section: Yes (X 2) Cholecystectomy: Yes Ear Surgery: No Endocrine Surgery: No Eye Surgery: No Genitourinary Surgery: No Gynecologic Surgery: Yes (2 c-sections) Neurologic Surgery: No Oral Surgery: No Thoracic Surgery: No Tonsillectomy: Yes Other Surgery: Yes Social History Alcohol Use: No Tobacco Use: No Substance Use: No Allergies-Medications (Allergen,Severity, Reaction): Coded Allergies: Sulfa (Sulfonamide Antibiotics) (Unverified Allergy, Severe, RASH, 05/05/17 ) diphenhydramine (Unverified Allergy, Severe, 05/05/17) MEDICATION GIVE OPPOSITE EFFECT penicillin G (Unverified Allergy, Severe, 05/05/17) codeine (Unverified Allergy, Intermediate, Nausea/Vomiting, 05/05/17) Uncoded Allergies: NARCOTICS (Allergy, Severe, 11/23/09) SEVERE ABDOMINAL PAIN TAPES (Allergy, Mild, 05/20/08) Reported Meds & Prescriptions Reported Meds & Active Scripts Active Indomethacin 50 Mg Cap 50 Mg PO TID Take with food, milk, or antacids to decrease stomach adverse effects. Review of Systems General / Constitutional: No: Fever Eyes: No: Visual changes HENT: No: Headaches Cardiovascular: No: Chest Pain or Discomfort Respiratory: No: Shortness of Breath Gastrointestinal: No: Abdominal Pain Genitourinary: No: Dysuria Musculoskeletal: Positive: Arthralgias, Limited ROM, Pain, No: Myalgias, Weakness, Cramping, Edema Skin: No Rash Neurologic: No: Weakness Psychiatric: No: Depression Endocrine: No: Polydipsia Hematologic/Lymphatic: No: Easy Bruising Physical Exam Narrative GENERAL: This is a well-nourished, well-developed patient, in no apparent distress. SKIN: No rashes, ecchymoses or lesions. Warm and dry. HEAD: Atraumatic. Normocephalic. EYES: PERRL, EOMI, no discharge or injection. No scleral icterus. EARS: Clear NOSE: Nasal turbinates appear normal. THROAT: Mucosa pink and moist. Airway patent. NECK: Trachea midline. supple, moves head freely. LUNGS: Clear to auscultation. CV: Regular in rhythm. ABDOMEN: Soft nontender. EXT: No clubbing cyanosis or edema. Examination of the left lower extremity reveals pain to the distal forefoot. No pain in the toes, heel, Achilles. No pain in the ankle or calf. No Homans sign. The calf is supple. No erythema or warmth. She has intact sensation with good distal pulses. Data Data Last Documented VS Vital Signs Date Time Temp Pulse Resp B/P (MAP) Pulse Ox O2 Delivery O2 Flow Rate FiO2 05/05/17 17:20 99.0 77 16 109/54 (72) 99 Room Air Orders Orders Foot, Complete ([id number]) (05/05/17 20:05) Splint Or Brace Apply/Monitor (05/05/17 20:05) Crutches (05/05/17 20:05) Naproxen (Naprosyn) (05/05/17 20:15) Ed Discharge Order (05/05/17 20:40) MDM Medical Decision Making Medical Screen Exam Complete: Yes Emergency Medical Condition: Yes Medical Record Reviewed: Yes Interpretation(s) Left foot: Negative for bony injury. Degenerative changes. Differential Diagnosis Differential diagnoses: Sprain, strain, gout, fracture, tendinitis Narrative Course X-ray of the left foot. Naprosyn 500 mg, Edgar wrap and crutches. X-ray is negative. Patient says refused her Naprosyn, Edgar wrap and crutches. She states that she would like an orthopedic boot. This is left foot pain Diagnosis Primary Impression: Left foot pain Patient Instructions: General Instructions Additional Instructions: Rest. Elevation. Ice. Indomethacin. Follow-up with diesel engine operator on Monday. Follow-up with a primary care doctor on Monday. Return to the ER for emergencies. Med/Other Pt SpecificInfo: Prescription(s) given Scripts Indomethacin (Indomethacin) 50 Mg Cap 50 MG PO TID, #21 CAP 0 Refills Take with food, milk, or antacids to decrease stomach adverse effects. Prov: Bernarda Nolan MD 05/05/17 Disposition: 01 DISCHARGE HOME Condition: Stable Bertin Leiva May 05, 2017 20:11
[2017-05-05] MEDS ORDERED: NAPROXEN 500 MG TAB PO ONE (20:15)
[2017-05-05] MEDS ORDERED: INDO50CA PO (20:40)
--- NOTE | 2017-05-05 20:50 | RADRPT ---
EXAM DATE/TIME: 05/05/2017 20:18 [facility] COMPARISON: No previous studies available for comparison. INDICATIONS : Left foot pain. MEDICAL HISTORY : None. SURGICAL HISTORY : None. ENCOUNTER: Initial ACUITY: 4 - 6 days PAIN SCORE: 10/10 LOCATION: Left plantar surface of foot FINDINGS: Three view examination of the left foot demonstrates no soft tissue swelling, dislocation, or fractur e. The tarsal bones appear intact. The interphalangeal and metatarsophalangeal joints are intact. The calcaneus is intact. Bony mineralization is normal. CONCLUSION: 1. No acute findings. Mild degenerative change. Bertin Escalante MD on May 05, 2017 at 20:46 Board Certified Radiologist. This report was verified electronically.
== END 2017-05-05 21:13 | disposition home or self-care (01) ==
LOC: NEPD 17:19
DX: M25.572 Pain in left ankle and joints of left foot (principal); J45.909 Unspecified asthma, uncomplicated; F41.9 Anxiety disorder, unspecified; F32.9 Major depressive disorder, single episode, unspecified; E78.00 Pure hypercholesterolemia, unspecified; M79.7 Fibromyalgia; K21.9 Gastro-esophageal reflux disease without esophagitis; F20.9 Schizophrenia, unspecified
CPT/HCPCS: 73630; 99283; E0113; L2114

== ENCOUNTER 2018-03-27 15:27 | Inpatient (IN) ==
[2018-03-27 17:02] LABS: Baso % (Auto) 0.4 % (0.0-2.0); Eos % (Auto) 0.4 % (0.0-4.0); Hematocrit 41.6 % (35.0-46.0); Hemoglobin 14.5 gm/dL (11.6-15.3); Lymph # (Auto) 1.5 th/mm3 (1.0-4.8); Lymph % (Auto) 21.9 % (9.0-44.0); Mean Corpuscular HGB Conc 34.9 % (32.0-36.0); Mean Corpuscular Hemoglobin 34.9 pg (27.0-34.0); Mono # (Auto) 0.6 th/mm3 (0.0-0.9); Mono % (Auto) 8.2 % (0.0-8.0); Neut # (Auto) 4.7 th/mm3 (1.8-7.7); Neut % (Auto) 69.1 % (16.0-70.0); Platelet Count 299 th/mm3 (150-450); Red Blood Count 4.16 mil/mm3 (4.00-5.30); Red Cell Distribution Width 13.3 % (11.6-17.2); White Blood Count 6.8 th/mm3 (4.0-11.0)
--- NOTE | 2018-03-27 17:19 | CT ---
EXAM DATE: 03/27/2018 4:56 PM EDT AGE/SEX: 67 years / Female INDICATIONS: Altered mental status. CLINICAL DATA: This is the patient's initial encounter. Patient reports that signs and symptoms have been present for 1 day and indicates a pain score of 0/10. MEDICAL/SURGICAL HISTORY: None. None. RADIATION DOSE: 56.35 CTDI (mGy) COMPARISON: No prior exams available for comparison. TECHNIQUE: CT of the head without contrast. Using automated exposure control and adjustment of the mA and/or kV according to patient size, radiation dose was kept as low as reasonably achievable to ob tain optimal diagnostic quality images. DICOM format image data is available electronically for revi ew and comparison. FINDINGS: Cerebrum: The ventricles are normal for age. No evidence of midline shift, mass lesion, hemorrhage or acute infarction. No extraaxial fluid collections are seen. Posterior Fossa: The cerebellum and brainstem are intact. The 4th ventricle is midline. The cerebe llopontine angle is unremarkable. Extracranial: The visualized portion of the orbits is intact. Skull: The calvaria is intact. No evidence of skull fracture. CONCLUSION: Negative CT Head non contrast. . Electronically signed by: Rodriguez Nelson MD 03/27/2018 5:18 PM EDT
[2018-03-27 17:27] LABS: Albumin 4.1 g/dL (3.4-5.0); Anion Gap 7 meq/L (5-15); Aspartate Aminotransferase 18 U/L (15-37); Blood Urea Nitrogen 17 mg/dL (7-18); Calcium 9.3 mg/dL (8.5-10.1); Carbon Dioxide 31.6 meq/L (21.0-32.0); Chloride 105 meq/L (98-107); Glomerular Filtration Rate 61 mL/min (>89); Glucose,Random 109 mg/dL (74-106); Magnesium 2.5 mg/dL (1.5-2.5); Potassium 3.5 meq/L (3.5-5.1); Sodium 144 meq/L (136-145)
--- NOTE | 2018-03-27 17:29 | ED ---
HPI General Chief Complaint: Psychiatric Symptoms Stated Complaint: Psych Eval/DBPD Time Seen by Provider: 03/28/18 09:39 Source: patient Mode of arrival: ambulatory Limitations: no limitations History of Present Illness HPI Narrative: 67-year-old female presents to the emergency department under Estrada act. According to the Estrada act report the patient's daughter had requested a well-being check. The law librarian met with the property underwriter. The patient has had a change in her original state during this past 6 months. She cannot remember who her daughter is. She has been to the hospital recently but she is adamant that hospital staff do not know what ails her. The patient is inconsistent statements and irregular behavior. She is unable to care for herself. She suffers from memory loss. On my examination the patient says that she cannot care for herself. She believes that somebody has been tampering with her food and is poisoning her. She believes that somebody is going around town wearing her close and impersonating her. 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 She admits to hearing voices. She says they are telling her to do things. She admits to seeing colors, shapes, people. She denies suicidal or homicidal ideations. Denies history of suicidal attempts. Denies illicit drug use, tobacco use, EtOH. No known aggravating or relieving factors. Onset unknown. Duration most likely chronic. Symptoms are moderate to severe in severity. Allergies as listed on the chart. Primary care provider is Dr. Ayala. History of anemia and hypo -hyperglycemia, asthma. Has no other medical complaints. Denies chest pain, shortness breath, abdominal pain, nausea, vomiting. No other modifying factors or associated signs and symptoms. Related Data Home Medications Medication Instructions Recorded Confirmed No Known Home Medications 03/27/18 03/27/18 Allergies Allergy/AdvReac Type Severity Reaction Status Date / Time diphenhydramine Allergy Severe Unverified 05/05/17 19:59 penicillin G Allergy Severe Unverified 05/05/17 19:59 Sulfa (Sulfonamide Allergy Severe RASH Unverified 05/05/17 19:59 Antibiotics) codeine Allergy Intermediate Nausea/Vomi Unverified 05/05/17 19:59 ting NARCOTICS Allergy Severe Uncoded 11/23/09 13:06 TAPES Allergy Mild Uncoded 05/20/08 13:24 Review of Systems ROS: all other systems reviewed are negative [facility] Medical History Medical History Depression (Acute) Surgical History Surgical History H/O section (Acute) H/O tubal ligation (Acute) Hx of cholecystectomy (Acute) Social History Social History Substance History: No History of Abuse Smoking Status: Never smoker How Often Do You Have a Drink Containing Alcohol: Never Immunization History Tetanus Immunization: Unable to Assess Exam Narrative Exam Narrative: GENERAL: Thin, female patient, in no acute distress SKIN: Warm and dry. HEAD: Atraumatic. Normocephalic. EYES: Pupils equal and round. ENT: Mucosa pink and moist. NECK: Supple. Trachea midline. CARDIOVASCULAR: Regular rate and rhythm. No murmur appreciated. RESPIRATORY: No accessory muscle use. Clear to auscultation. Breath sounds equal bilaterally. GASTROINTESTINAL: Abdomen soft, non-tender, nondistended. Hepatic and splenic margins not palpable. Bowel sounds are active 4 quadrants. MUSCULOSKELETAL: No obvious deformities. No clubbing. No cyanosis. No edema. NEUROLOGICAL: Awake and alert. No obvious cranial nerve deficits. Motor grossly within normal limits. Normal speech. Moves all extremities. 5/5 strength to all extremities. PSYCHIATRIC: Delusional and with possible hallucinations. Course Initial Documented Vital Signs Temperature 98.2 F 03/27/18 15:34 Pulse Rate 82 03/27/18 15:34 Respiratory Rate 20 03/27/18 15:34 Blood Pressure 132/62 03/27/18 15:34 Pulse Oximetry 100 03/27/18 15:34 Last Documented Vital Signs Temperature 98.1 F 03/28/18 08:06 Pulse Rate 98 H 03/28/18 11:43 Respiratory Rate 18 03/28/18 11:43 Blood Pressure 140/60 03/28/18 11:43 Pulse Oximetry 99 03/28/18 08:06 Medical Decision Making MDM Narrative Medical decision making narrative: Patient presents under a Estrada act. Physical examination and vital signs are essentially unremarkable. Patient has no medical complaints to report. Psych screen has been ordered. If the laboratory results are unremarkable, the patient will be medically cleared for psychiatric evaluation and disposition. Medical Screen Exam Complete: Yes Emergency Medical Condition: Yes Differential Diagnosis Differential Diagnosis: Dementia, delirium, Alzheimer's disease, brain tumor, psychosis, hallucinations, medical clearance for psychiatric admission Lab Data Result diagrams: 03/27/18 15:51 03/27/18 15:51 Lab Results 03/27/18 03/27/18 03/27/18 Range/Units 15:51 15:51 15:51 WBC 6.8 (4.0-11.0) th/mm3 RBC 4.16 (4.00-5.30) mil/mm3 Hgb 14.5 (11.6-15.3) gm/dL Hct 41.6 (35.0-46.0) % MCV 100.0 (80.0-100.0) fL MCH 34.9 H (27.0-34.0) pg MCHC 34.9 (32.0-36.0) % RDW 13.3 (11.6-17.2) % Plt Count 299 (150-450) th/mm3 MPV 8.0 (7.0-11.0) fL Neut % (Auto) 69.1 (16.0-70.0) % Lymph % (Auto) 21.9 (9.0-44.0) % [place] % (Auto) 8.2 H (0.0-8.0) % Eos % (Auto) 0.4 (0.0-4.0) % Baso % (Auto) 0.4 (0.0-2.0) % Neut # (Auto) 4.7 (1.8-7.7) th/mm3 Lymph # (Auto) 1.5 (1.0-4.8) th/mm3 [place] # (Auto) 0.6 (0.0-0.9) th/mm3 Eos # (Auto) 0.0 (0.0-0.4) th/mm3 Baso # (Auto) 0.0 (0.0-0.2) th/mm3 WBC Differential . Differential Comment Auto diff final Sodium 144 (136-145) meq/L Potassium 3.5 (3.5-5.1) meq/L Chloride 105 (98-107) meq/L Carbon Dioxide 31.6 (21.0-32.0) meq/L Anion Gap 7 (5-15) meq/L BUN 17 (7-18) mg/dL Creatinine 0.92 (0.50-1.00) mg/dL Estimated GFR 61 L (>89) mL/min Random Glucose 109 H (74-106) mg/dL Calcium 9.3 (8.5-10.1) mg/dL Magnesium 2.5 (1.5-2.5) mg/dL Total Bilirubin 0.6 (0.2-1.0) mg/dL AST 18 (15-37) U/L ALT 27 (10-53) U/L Alkaline Phosphatase 70 (45-117) U/L Total Protein 7.8 (6.4-8.2) g/dL Albumin 4.1 (3.4-5.0) g/dL TSH 0.510 (0.358-3.740) uIU/mL Urine Color (Yellw/Straw) Urine Clarity (Clear) Urine pH (5.0-8.5) Ur Specific [place] (1.002-1.035) Urine Protein (Neg-Trace) mg/dL Urine Glucose (UA) (Negative) mg/dL Urine Ketones (Negative) mg/dL Urine Occult Blood (Negative) Urine Nitrate (Negative) Urine Bilirubin (Negative) Urine Urobilinogen (Less than 2) mg/dL Ur Leukocyte Esterase (Negative) Urine RBC (0-3) /hpf Urine WBC (0-5) /hpf Ur Squamous Epith Cells (0-5) /hpf Amorphous Sediment (None) /hpf Hyaline Casts (0-3) /lpf Urine Mucus (Occasional) /lpf Micro UA Comment Ur Microscopic Review Urine Culture Comments Salicylates Less than 1.7 L (2.8-20.0) mg/dL Urine Opiates Screen (Neg) Acetaminophen Less than 2.0 L (10.0-30.0) mcg/mL Ur Barbiturates Screen (Neg) Ur Amphetamines Screen (Neg) U Benzodiazepines Scrn (Neg) Urine Cocaine Screen (Neg) U Cannabinoids Screen (Neg) Serum Alcohol Less than 3 (0-5) mg/dL 03/27/18 03/27/18 Range/Units 19:00 19:00 WBC (4.0-11.0) th/mm3 RBC (4.00-5.30) mil/mm3 Hgb (11.6-15.3) gm/dL Hct (35.0-46.0) % MCV (80.0-100.0) fL MCH (27.0-34.0) pg MCHC (32.0-36.0) % RDW (11.6-17.2) % Plt Count (150-450) th/mm3 MPV (7.0-11.0) fL Neut % (Auto) (16.0-70.0) % Lymph % (Auto) (9.0-44.0) % [place] % (Auto) (0.0-8.0) % Eos % (Auto) (0.0-4.0) % Baso % (Auto) (0.0-2.0) % Neut # (Auto) (1.8-7.7) th/mm3 Lymph # (Auto) (1.0-4.8) th/mm3 [place] # (Auto) (0.0-0.9) th/mm3 Eos # (Auto) (0.0-0.4) th/mm3 Baso # (Auto) (0.0-0.2) th/mm3 WBC Differential Differential Comment Sodium (136-145) meq/L Potassium (3.5-5.1) meq/L Chloride (98-107) meq/L Carbon Dioxide (21.0-32.0) meq/L Anion Gap (5-15) meq/L BUN (7-18) mg/dL Creatinine (0.50-1.00) mg/dL Estimated GFR (>89) mL/min Random Glucose (74-106) mg/dL Calcium (8.5-10.1) mg/dL Magnesium (1.5-2.5) mg/dL Total Bilirubin (0.2-1.0) mg/dL AST (15-37) U/L ALT (10-53) U/L Alkaline Phosphatase (45-117) U/L Total Protein (6.4-8.2) g/dL Albumin (3.4-5.0) g/dL TSH (0.358-3.740) uIU/mL Urine Color Yellow (Yellw/Straw) Urine Clarity Hazy H (Clear) Urine pH 7.0 (5.0-8.5) Ur Specific [place] 1.016 (1.002-1.035) Urine Protein Negative (Neg-Trace) mg/dL Urine Glucose (UA) Negative (Negative) mg/dL Urine Ketones Trace H (Negative) mg/dL Urine Occult Blood Negative (Negative) Urine Nitrate Negative (Negative) Urine Bilirubin Negative (Negative) Urine Urobilinogen Less than 2 (Less than 2) mg/dL Ur Leukocyte Esterase Trace H (Negative) Urine RBC 2 (0-3) /hpf Urine WBC 4 (0-5) /hpf Ur Squamous Epith Cells 1 (0-5) /hpf Amorphous Sediment Rare H (None) /hpf Hyaline Casts 1 (0-3) /lpf Urine Mucus Few H (Occasional) /lpf Micro UA Comment Culture not ind Ur Microscopic Review Not Reportable Urine Culture Comments Culture not ind Salicylates (2.8-20.0) mg/dL Urine Opiates Screen Neg (Neg) Acetaminophen (10.0-30.0) mcg/mL Ur Barbiturates Screen Neg (Neg) Ur Amphetamines Screen Neg (Neg) U Benzodiazepines Scrn Neg (Neg) Urine Cocaine Screen Neg (Neg) U Cannabinoids Screen Neg (Neg) Serum Alcohol (0-5) mg/dL Imaging Data Radiologist's impression: Head CT 03/27/18 16:52 CONCLUSION: Negative CT Head non contrast. . Discharge Plan Discharge Disposition Patient Disposition: 30 Still Patient Discharge Condition Condition: Stable Physicians Team ED Provider: Willow Hackett ED Midlevel Provider: Madeline Meredith Primary Care Provider: Yoanna Rock Attending Provider: Ramón Caruso Status ED Status: Left Department Discharge Information Discharge Date/Time: 03/28/18 11:00
[2018-03-27 17:35] LABS: Alanine Aminotransferase 27 U/L (10-53); Alkaline Phosphatase 70 U/L (45-117); Total Protein 7.8 g/dL (6.4-8.2)
[2018-03-27] MEDS ORDERED: LORazepam 1 MG Tablet PO ONE (18:33)
[2018-03-27 19:36] LABS: Amorphous Sediment,Urine Rare /hpf; Bilirubin,Urine Negative (Negative); Clarity,Urine Hazy (Clear); Color,Urine Yellow (Yellw/Straw); Glucose,Urine (UA) Negative (Negative); Hyaline Casts,Urine 1 /lpf (0-3); Leukocyte Esterase,Urine Trace (Negative); Mucus,Urine Few /lpf (Occasional); Nitrite,Urine Negative (Negative); Specific Gravity,Urine 1.016 (1.002-1.035); Squamous Epithelial Cell,Urine 1 /hpf (0-5)
[2018-03-27 19:42] LABS: Amphetamine Screen,Urine Neg (Neg); Barbiturate Screen,Urine Neg (Neg); Cannabinoid Screen,Urine Neg (Neg); Cocaine Screen,Urine Neg (Neg)
[2018-03-27 19:43] LABS: Opiate Screen,Urine Neg (Neg)
--- NOTE | 2018-03-28 10:06 | ED ---
HPI - Psych - General Source: patient, family, RN notes reviewed, old records reviewed Mode of arrival: ambulatory Limitations: no limitations - History of Present Illness MD complaint: other Onset (ago): month(s) Duration: constant History of same: Yes Relieving factors: none Exacerbating factors: medication Context: not taking psychiatric medications Associated psychiatric symptoms: auditory hallucinations, visual hallucinations , delusions Associated symptoms: denies other symptoms Treatments prior to arrival: none - General Chief Complaint: Psychiatric Symptoms Stated Complaint: Psych Eval/DBPD Time Seen by Provider: 03/28/18 09:00 - History of Present Illness HPI Narrative: History of Present Illness HPI Narrative: 67-year-old, single female, with record history of schizoaffective disorder presents to the emergency department under Estrada act initiated by law enforcement. According to the Estrada act report the patient's daughter had requested a well-being check due to concerns that for the past 6 months she had a change in her usual presentation including, not remembering who her daughter is but recognizing her son in law, she has gotten rid of most of her belongings, has been staying in her apartment for extended amounts of time, believes that somebody has been tampering with her food and is poisoning her. She is eating hospital food during her examination and continues to ask me to smell it because" it is poisoned with arsenic". She believes that somebody is going around town wearing her clothes and impersonating her. She admits to hearing voices " of children inside the air ducts". She says they are telling her to do things. She admits to seeing colors , shapes, people. Patient is irritable on examination, refusing to answer any questions upon initial attempt. I later returned and she did agree to answer some questions. She is alert and oriented. She tells me that she has stopped all her psychiatric medications " because I was feeling better". She is unable to tell me the last time she was at [facility]. (Nae Connor) - Related Data Home Medications Medication Instructions Recorded Confirmed No Known Home Medications 03/27/18 03/27/18 Allergies Allergy/AdvReac Type Severity Reaction Status Date / Time diphenhydramine Allergy Severe Unverified 05/05/17 19:59 penicillin G Allergy Severe Unverified 05/05/17 19:59 Sulfa (Sulfonamide Allergy Severe RASH Unverified 05/05/17 19:59 Antibiotics) codeine Allergy Intermediate Nausea/Vomi Unverified 05/05/17 19:59 ting NARCOTICS Allergy Severe Uncoded 11/23/09 13:06 TAPES Allergy Mild Uncoded 05/20/08 13:24 [facility] - History History Provided By: Family Member - Medical History Medical History: Medical History (Last Reviewed 03/27/18 @ 17:27 by CAMRYN Banks) Depression - Surgical History Surgical History: Surgical History (Last Updated 03/27/18 @ 16:59 by Nurys Reyes RN) H/O section H/O tubal ligation Hx of cholecystectomy - Social History I have reviewed the patient's Social History: Yes - Tobacco History Smoking Status: Never smoker - Alcohol History How Often Do You Have a Drink Containing Alcohol: Never - Substance Use History Substance History: No History of Abuse - Immunization History Tetanus Immunization: Unable to Assess Psychiatric History - Psychiatric History Psychiatric Treatment History: History of Psychiatric Treatment History of Inpatient Treatment: Yes Firearms in Home: No - Psychiatric History Patient has one previous admission to [address] in 2011. One brief admission to [facility] in 2011. Has received outpatient treatment at [facility]. ( Connor,Nae) - Legal History None (Connor,Nae) - Family Psychiatric History Negative (Connor,Nae) Physical Exam - General Limitations: no limitations Mental Status Examination Consciousness: Alert, Asleep Orientation: x4 Speech: Unremarkable Language: Adequate Fund of Knowledge: Adequate Attention and Concentration: Adequate Memory: Unremarkable Mood: Angry, Irritable Affect: Irritable Thought Process & Associations: Intact Thought Content: Bizarre thinking, Hallucinations, Delusional Hallucination Type: Auditory, Visual Delusion Type: Bizarre, Paranoid Suicidal Ideation: No Suicidal Plan: No Suicidal Intention: No Homicidal Ideation: No Homicidal Plan: No Homicidal Intention: No Insight: Fair Judgment: Poor Initial Documented Vital Signs Temperature 98.2 F 03/27/18 15:34 Pulse Rate 82 03/27/18 15:34 Respiratory Rate 20 03/27/18 15:34 Blood Pressure 132/62 03/27/18 15:34 Pulse Oximetry 100 03/27/18 15:34 Last Documented Vital Signs Temperature 98.1 F 10/24/18 08:06 Pulse Rate 98 H 03/28/18 11:43 Respiratory Rate 18 03/28/18 11:43 Blood Pressure 140/60 03/28/18 11:43 Pulse Oximetry 99 03/28/18 08:06 MDM - Psych - Diagnosis (1) Schizoaffective disorder Status: Acute - Lab Data Result diagrams: 03/27/18 15:51 03/27/18 15:51 - [facility] Narrative Medical decision making narrative: At the time of this evaluation the patient meets criteria for inpatient psychiatric treatment. She admits to having stopped her psychiatric medication some time ago. Patient admits to auditory hallucinations, visual hallucinations , paranoid delusions about people coming into her house stealing her food and her clothing. She also gave away all her belongings keeping only one set of each object. Her daughter is concerned about her ability to take care of herself at this time. (Nae Connor) - Lab Data Lab Results 03/27/18 03/27/18 03/27/18 Range/Units 15:51 15:51 15:51 WBC 6.8 (4.0-11.0) th/mm3 RBC 4.16 (4.00-5.30) mil/mm3 Hgb 14.5 (11.6-15.3) gm/dL Hct 41.6 (35.0-46.0) % MCV 100.0 (80.0-100.0) fL MCH 34.9 H (27.0-34.0) pg MCHC 34.9 (32.0-36.0) % RDW 13.3 (11.6-17.2) % Plt Count 299 (150-450) th/mm3 MPV 8.0 (7.0-11.0) fL Neut % (Auto) 69.1 (16.0-70.0) % Lymph % (Auto) 21.9 (9.0-44.0) % [place] % (Auto) 8.2 H (0.0-8.0) % Eos % (Auto) 0.4 (0.0-4.0) % Baso % (Auto) 0.4 (0.0-2.0) % Neut # (Auto) 4.7 (1.8-7.7) th/mm3 Lymph # (Auto) 1.5 (1.0-4.8) th/mm3 [place] # (Auto) 0.6 (0.0-0.9) th/mm3 Eos # (Auto) 0.0 (0.0-0.4) th/mm3 Baso # (Auto) 0.0 (0.0-0.2) th/mm3 WBC Differential . Differential Comment Auto diff final Sodium 144 (136-145) meq/L Potassium 3.5 (3.5-5.1) meq/L Chloride 105 (98-107) meq/L Carbon Dioxide 31.6 (21.0-32.0) meq/L Anion Gap 7 (5-15) meq/L BUN 17 (7-18) mg/dL Creatinine 0.92 (0.50-1.00) mg/dL Estimated GFR 61 L (>89) mL/min Random Glucose 109 H (74-106) mg/dL Calcium 9.3 (8.5-10.1) mg/dL Magnesium 2.5 (1.5-2.5) mg/dL Total Bilirubin 0.6 (0.2-1.0) mg/dL AST 18 (15-37) U/L ALT 27 (10-53) U/L Alkaline Phosphatase 70 (45-117) U/L Total Protein 7.8 (6.4-8.2) g/dL Albumin 4.1 (3.4-5.0) g/dL TSH 0.510 (0.358-3.740) uIU/mL Urine Color (Yellw/Straw) Urine Clarity (Clear) Urine pH (5.0-8.5) Ur Specific [place] (1.002-1.035) Urine Protein (Neg-Trace) mg/dL Urine Glucose (UA) (Negative) mg/dL Urine Ketones (Negative) mg/dL Urine Occult Blood (Negative) Urine Nitrate (Negative) Urine Bilirubin (Negative) Urine Urobilinogen (Less than 2) mg/dL Ur Leukocyte Esterase (Negative) Urine RBC (0-3) /hpf Urine WBC (0-5) /hpf Ur Squamous Epith Cells (0-5) /hpf Amorphous Sediment (None) /hpf Hyaline Casts (0-3) /lpf Urine Mucus (Occasional) /lpf Micro UA Comment Ur Microscopic Review Urine Culture Comments Salicylates Less than 1.7 L (2.8-20.0) mg/dL Urine Opiates Screen (Neg) Acetaminophen Less than 2.0 L (10.0-30.0) mcg/mL Ur Barbiturates Screen (Neg) Ur Amphetamines Screen (Neg) U Benzodiazepines Scrn (Neg) Urine Cocaine Screen (Neg) U Cannabinoids Screen (Neg) Serum Alcohol Less than 3 (0-5) mg/dL 03/27/18 03/27/18 Range/Units 19:00 19:00 WBC (4.0-11.0) th/mm3 RBC (4.00-5.30) mil/mm3 Hgb (11.6-15.3) gm/dL Hct (35.0-46.0) % MCV (80.0-100.0) fL MCH (27.0-34.0) pg MCHC (32.0-36.0) % RDW (11.6-17.2) % Plt Count (150-450) th/mm3 MPV (7.0-11.0) fL Neut % (Auto) (16.0-70.0) % Lymph % (Auto) (9.0-44.0) % [place] % (Auto) (0.0-8.0) % Eos % (Auto) (0.0-4.0) % Baso % (Auto) (0.0-2.0) % Neut # (Auto) (1.8-7.7) th/mm3 Lymph # (Auto) (1.0-4.8) th/mm3 [place] # (Auto) (0.0-0.9) th/mm3 Eos # (Auto) (0.0-0.4) th/mm3 Baso # (Auto) (0.0-0.2) th/mm3 WBC Differential Differential Comment Sodium (136-145) meq/L Potassium (3.5-5.1) meq/L Chloride (98-107) meq/L Carbon Dioxide (21.0-32.0) meq/L Anion Gap (5-15) meq/L BUN (7-18) mg/dL Creatinine (0.50-1.00) mg/dL Estimated GFR (>89) mL/min Random Glucose (74-106) mg/dL Calcium (8.5-10.1) mg/dL Magnesium (1.5-2.5) mg/dL Total Bilirubin (0.2-1.0) mg/dL AST (15-37) U/L ALT (10-53) U/L Alkaline Phosphatase (45-117) U/L Total Protein (6.4-8.2) g/dL Albumin (3.4-5.0) g/dL TSH (0.358-3.740) uIU/mL Urine Color Yellow (Yellw/Straw) Urine Clarity Hazy H (Clear) Urine pH 7.0 (5.0-8.5) Ur Specific [place] 1.016 (1.002-1.035) Urine Protein Negative (Neg-Trace) mg/dL Urine Glucose (UA) Negative (Negative) mg/dL Urine Ketones Trace H (Negative) mg/dL Urine Occult Blood Negative (Negative) Urine Nitrate Negative (Negative) Urine Bilirubin Negative (Negative) Urine Urobilinogen Less than 2 (Less than 2) mg/dL Ur Leukocyte Esterase Trace H (Negative) Urine RBC 2 (0-3) /hpf Urine WBC 4 (0-5) /hpf Ur Squamous Epith Cells 1 (0-5) /hpf Amorphous Sediment Rare H (None) /hpf Hyaline Casts 1 (0-3) /lpf Urine Mucus Few H (Occasional) /lpf Micro UA Comment Culture not ind Ur Microscopic Review Not Reportable Urine Culture Comments Culture not ind Salicylates (2.8-20.0) mg/dL Urine Opiates Screen Neg (Neg) Acetaminophen (10.0-30.0) mcg/mL Ur Barbiturates Screen Neg (Neg) Ur Amphetamines Screen Neg (Neg) U Benzodiazepines Scrn Neg (Neg) Urine Cocaine Screen Neg (Neg) U Cannabinoids Screen Neg (Neg) Serum Alcohol (0-5) mg/dL
[2018-03-28] MEDS ORDERED: Aluminum/Magnesium/Simethacone Susp 30 ML UDC PO PRN (10:09)
[2018-03-28] MEDS ORDERED: LORazepam 0.5 MG Tablet PO PRN (10:09)
--- NOTE | 2018-03-29 20:33 | P.HPPSY ---
Provisional Diagnosis Admission Date: March 28, 2018 10:09 Competence Certification of Person's Competence To Provide Express and Informed Consent I have personally examined Kay Goyal, a person being served at [facility] on, March 29, [id number]. Express and informed consent means consent voluntarily given in writing, by a competent person, after sufficient explanation and disclosure of the subject matter involved to enable the person to make a knowing and willful decision without any element of force, fraud, deceit, duress, or other form of constraint or coercion. This person is 18 years of age or older, is not now known to be incompetent to consent to treatment with a guardian advocate, and does not have a health care surrogate or proxy currently making medical treatment decisions. I have found this person to be one of the following: [] Competent to provide express and informed consent, as defined above, for voluntary admission to this facility and is competent to provide express and informed consent for treatment. He/she has the consistent capacity to make well reasoned, willful, and knowing decisions concerning his or her medical or mental health treatment. The person fully and consistently understands the purpose of the admission for examination/placement and is fully capable of personally exercising all rights assured [place] [X] Incompetent to provide express and informed consent to voluntary admission, and this is incompetent to provide express and informed consent to treatment. The person must be transferred to involuntary status and a petition for a guardian advocate filed with the Circuit Court. [] Refusing to provide express and informed consent to voluntary admission but is competent to provide express and informed consent for treatment. The person must be discharged or transferred to involuntary status. Form shall be completed within 24 hours of a person's arrival at the receiving facility and filed in the clinical record of each person: 1. Admitted on a voluntary basis 2. Permitted to provide express and informed consent to his/her own treatment 3. Allowed to transfer from involuntary to voluntary status 4. Prior to permitting a person to consent to his or her own treatment after having been previously found incompetent to consent to treatment. History of Present Illness Capacity: Lacks capacity Chief Complaint: Acute psychosis History of Present Illness: Patient is a 67-year-old female with a history of schizoaffective disorder. ER note was reviewed, case was discussed with nursing and patient was evaluated. Patient is floridly psychotic and appears to be off her medication. Patient has a multitude of bizarre delusions. Patient thinks that her daughter is not her daughter, and there is nondenominational and goblins in her house. Patient is preoccupied with witches. Patient feels that she has already been murdered today and chopped up in her room earlier this morning. Patient says that the witches have raped her 150 times but "she has never had sex with a man or woman. " Patient says any 1 of us could be witches. She has auditory hallucinations telling her to give everything away and did not take her medications. Patient is disheveled and paranoid. Thought process is tangential and loose. She does not endorse a stable mood and denies suicidal or homicidal ideation intent or plan. Past psych: Patient denies a history of suicide attempt. She admits to hallucinations since she was a child. She has been seeing psychiatrist all of her life and is a patient at [facility]. She has had multiple inpatient admissions. She has a long history of medications with an adverse effect to Seroquel because "it is a stomach acid." Past medical: See chart Past Famhx: "All of them." Past Social: Patient has trouble providing a coherent social history. She denies a history of alcohol or cannabis use. Believes that she does not have children where in fact she does. HPI Narrative: 67-year-old, single female, with record history of schizoaffective disorder presents to the emergency department under [place] act initiated by law enforcement. According to the Estrada act report the patient's daughter had requested a well-being check due to concerns that for the past 6 months she had a change in her usual presentation including, not remembering who her daughter is but recognizing her son in law, she has gotten rid of most of her belongings, has been staying in her apartment for extended amounts of time, believes that somebody has been tampering with her food and is poisoning her. She is eating hospital food during her examination and continues to ask me to smell it because" it is poisoned with arsenic". She believes that somebody is going around town wearing her clothes and impersonating her. She admits to hearing voices " of children inside the air ducts". She says they are telling her to do things. She admits to seeing colors , shapes, people. Patient is irritable on examination, refusing to answer any questions upon initial attempt. I later returned and she did agree to answer some questions. She is alert and oriented. She tells me that she has stopped all her psychiatric medications " because I was feeling better". She is unable to tell me the last time she was at [facility] - Inpatient Certification I certify that the inpatient services were ordered in accordance with Medicare regulations governing the order. This includes certification that hospital inpatient services are reasonable and necessary and in the case of services not specified as inpatient-only under 42 CFR 419.22(n), that they are appropriately provided as inpatient services in accordance to with the 2-midnight benchmark under 43 CFR 412.3(e) I certify that inpatient psychiatric hospital services are medically necessary. Evaluation and treatment and/or diagnostic testing are expected to improve the patient's condition. The patient needs on a daily basis, active treatment furnished directly by or requiring the supervision of inpatient psychiatric facility personnel. Estimated Total Length of Stay (Days): 8 Plans for Post Hospital Care: Not yet determined Review of Systems All other systems reviewed negative except as stated in HPI PMFSH - History History Provided By: Family Member - Medical History Medical History: Medical History (Last Reviewed 03/29/18 @ 20:31 by Lenny Hood DO) Depression - Surgical History Surgical History: Surgical History (Last Reviewed 03/29/18 @ 20:31 by Lenny Hood DO) H/O section H/O tubal ligation Hx of cholecystectomy - Tobacco History Second Hand Smoke Exposure: No Tobacco Use In Past 30 Days: No Smoking Status: Never smoker Tobacco Type: Cigarettes - Alcohol History How Often Do You Have a Drink Containing Alcohol: Never - Substance Use History Substance History: No History of Abuse - Travel History Recent Travel in the [place] Within the Last 8 Weeks: No Recent Travel Out of the Country Within the Last 8 Weeks: No - Immunization History Tetanus Immunization: Unable to Assess Hx Influenza Vaccine This Season: No Medications and Allergies Active Medications: Active Medications Al Hydrox/Mg Hydrox/Simethicone (Mag-Al Plus Susp Liq) 30 ml PO Q6H PRN PRN Reason: DYSPEPSIA Al Hydroxide/Mg Hydroxide (Milk Of Magnesia Liq) 30 ml PO Q12H PRN PRN Reason: Mild Constipation Lorazepam (Ativan) 0.5 mg PO Q12H PRN PRN Reason: MODERATE TO SEVERE ANXIETY Sennosides (Senokot) 17.2 mg PO Q12H PRN PRN Reason: Moderate Constipation Allergies Allergy/AdvReac Type Severity Reaction Status Date / Time diphenhydramine Allergy Severe Insomnia Unverified 03/29/18 19:41 penicillin G Allergy Severe Nausea/Vomi Unverified 03/29/18 19:41 ting Sulfa (Sulfonamide Allergy Severe RASH Unverified 05/05/17 19:59 Antibiotics) codeine Allergy Intermediate Nausea/Vomi Unverified 05/05/17 19:59 ting quetiapine Allergy Intermediate Nausea/Vomi Verified 03/29/18 19:41 ting NARCOTICS Allergy Severe Nausea/Vomi Uncoded 03/29/18 19:41 ting TAPES Allergy Mild Redness of Uncoded 03/29/18 19:41 Skin Home Medications Medication Instructions Recorded Confirmed Type No Known Home Medications 03/27/18 03/27/18 History Results - Labs CBC & Chem 7: 03/27/18 15:51 03/27/18 15:51 Exam Vital signs: Vital Signs 03/29/18 05:58 03/29/18 17:23 Temperature 98.7 F Pulse Rate 85 90 Respiratory Rate 18 18 Blood Pressure 141/65 H 137/65 Pulse Oximetry 93 L Intake & Output 03/29/18 03/29/18 03/30/18 06:59 18:59 06:59 Intake Total 120 / 120 1200 / 1200 Balance 120 / 120 1200 / 1200 Weight 40.7 kg Intake: Oral 120 / 120 1200 / 1200 Other: # Voids 1 2 Mental Status Examination Appearance: Dirty, Disheveled Consciousness: Alert Orientation: Person, Place Speech: Pressured, Rapid Language: Perseveration Fund of Knowledge: Inadequate Attention and Concentration: Easily distracted Memory: Impaired Mood: Anxious Affect: Irritable, Anxious Thought Process & Associations: Loose associations, Tangential Thought Content: Bizarre thinking, Hallucinations, Delusional Hallucination Type: Auditory (witches) Delusion Type: Bizarre, Paranoid Suicidal Ideation: No Suicidal Plan: No Suicidal Intention: No Homicidal Ideation: No Homicidal Plan: No Homicidal Intention: No Insight: Fair Judgment: Poor Assessment and Plan - Assessment (1) Schizoaffective disorder Code(s): F25.9 - Schizoaffective disorder, unspecified Status: Acute - Plan Plan: Estimated LOS: [] days Given patient's preoccupation with being raped by spirits we will sign a one-to- one. Patient is also complaining of constipation and urinary hesitancy and we will get a medical consult. Given her current mental state she does not have capacity and we will initiate a petition. Once a guardian advocate is found we can initiate medications. Justification for Continued Inpatient Stay: Patient would decompensate in a less restrictive setting
--- NOTE | 2018-03-30 11:14 | P.CONIM ---
History of Present Illness Service: [facility] Consult date: 03/30/18 Reason for Consult: medical management Primary Care Provider: Yoanna Rock Chief Complaint: heart arrythmia History of Present Illness: This a 67 years old caucasean female with PMH of heart arrythmia, asthma, RA, acid reflux, psychosis and a record history of schizoaffective disorder presents to the emergency department under Estrada act initiated by law enforcement. According to the Estrada act report the patient's daughter had requested a well-being check due to concerns that for the past 6 months she had a change in her usual presentation including, not remembering who her daughter is but recognizing her son in law, she has gotten rid of most of her belongings, has been staying in her apartment for extended amounts of time, believes that somebody has been tampering with her food and is poisoning her. She is eating hospital food during her examination and continues to ask me to smell it because" it is poisoned with arsenic". She believes that somebody is going around town wearing her clothes and impersonating her. She admits to hearing voices " of children inside the air ducts". She says they are telling her to do things. She admits to seeing colors, shapes, people. Patient was admitted to the Psychiatric unit for management of her psychosis. Medicine tem is consulted for medical management Patient seen and examined sitting in the chair, complaints of something wrong with her body, stated "I want an xray of my whole body to know if all my parts are still there". Patient also mentioned that she is suppose to be on 81 mg of Aspirin. She also mentioned that she have some heart arrythmia, asthma, acid reflux, RA and psychosis.Patient complaints of some nausea, but no vomiting. Denies any pain , chest pain or SOB. Denies any fever or chills. Kelly stated she stopped taking medications at home because it is making her feel bad, hearing voices, "many things that are not true" Review of Systems All other systems reviewed negative except as stated in HPI PMFSH - History History Provided By: Family Member - Medical History Medical History: Medical History (Last Updated 03/30/18 @ 11:09 by CAMRYN Crowe) Acid reflux Asthma Depression Heart palpitations Psychosis - Surgical History Surgical History: Surgical History (Last Reviewed 10/26/18 @ 11:09 by CAMRYN Crowe) H/O section H/O tubal ligation Hx of cholecystectomy - Family History Family History: Family History (Last Updated 03/30/18 @ 11:09 by CAMRYN Crowe) Other Family history unobtainable - Tobacco History Second Hand Smoke Exposure: No Tobacco Use In Past 30 Days: No Smoking Status: Former smoker Tobacco Type: Cigarettes - Alcohol History How Often Do You Have a Drink Containing Alcohol: Never - Substance Use History Substance History: No History of Abuse - Travel History Recent Travel in the [place] Within the Last 8 Weeks: No Recent Travel Out of the Country Within the Last 8 Weeks: No - Immunization History Tetanus Immunization: Unable to Assess Hx Influenza Vaccine This Season: No Medications and Allergies Active Medications: Active Medications Al Hydrox/Mg Hydrox/Simethicone (Mag-Al Plus Susp Liq) 30 ml PO Q6H PRN PRN Reason: DYSPEPSIA Al Hydroxide/Mg Hydroxide (Milk Of Magnesia Liq) 30 ml PO Q12H PRN PRN Reason: Mild Constipation Lorazepam (Ativan) 0.5 mg PO Q12H PRN PRN Reason: MODERATE TO SEVERE ANXIETY Sennosides (Senokot) 17.2 mg PO Q12H PRN PRN Reason: Moderate Constipation Allergies Allergy/AdvReac Type Severity Reaction Status Date / Time diphenhydramine Allergy Severe Insomnia Unverified 03/29/18 19:41 penicillin G Allergy Severe Nausea/Vomi Unverified 03/29/18 19:41 ting Sulfa (Sulfonamide Allergy Severe RASH Unverified 05/05/17 19:59 Antibiotics) codeine Allergy Intermediate Nausea/Vomi Unverified 05/05/17 19:59 ting quetiapine Allergy Intermediate Nausea/Vomi Verified 03/29/18 19:41 ting NARCOTICS Allergy Severe Nausea/Vomi Uncoded 03/29/18 19:41 ting TAPES Allergy Mild Redness of Uncoded 03/29/18 19:41 Skin Home Medications Medication Instructions Recorded Confirmed Type No Known Home Medications 03/27/18 03/27/18 History Exam Vital signs: Vital Signs 03/29/18 17:23 03/30/18 06:00 Pulse Rate 90 80 Respiratory Rate 18 18 Blood Pressure 137/65 141/65 H Pulse Oximetry 97 Intake & Output 10/03/30/18 03/30/18 18:59 06:59 18:59 Intake Total 1200 / 1200 360 / 360 Balance 1200 / 1200 360 / 360 Intake: Oral 1200 / 1200 360 / 360 Other: # Voids 2 2 Narrative: GENERAL: well developed, well nourished, female, in no apparent distress SKIN: Warm and dry. HEAD: Atraumatic. Normocephalic. EYES: Pupils equal and round. No scleral icterus. No injection or drainage. ENT: No nasal bleeding or discharge. Mucous membranes pink and moist. NECK: Trachea midline. No JVD. CARDIOVASCULAR: Regular rate and rhythm. RESPIRATORY: No accessory muscle use. Clear to auscultation. Breath sounds equal bilaterally. GASTROINTESTINAL: Abdomen soft, non-tender, nondistended. Hepatic and splenic margins not palpable. MUSCULOSKELETAL: Extremities without clubbing, cyanosis, or edema. No obvious deformities. NEUROLOGICAL: Awake and alert x3. No obvious cranial nerve deficits. Motor grossly within normal limits. Generalized weakness. Normal speech. PSYCHIATRIC: flat mood and affect; insight and judgment poor Results - Labs CBC & Chem 7: 03/27/18 15:51 03/27/18 15:51 Assessment and Plan - Assessment (1) Heart palpitations Code(s): R00.2 - Palpitations Status: Acute (2) Asthma Code(s): J45.909 - Unspecified asthma, uncomplicated Status: Acute (3) Schizoaffective disorder Code(s): F25.9 - Schizoaffective disorder, unspecified Status: Acute - Plan This a 67 years old female with PMH of heart arrhythmia, asthma, RA, acid reflux, psychosis and a record history of schizoaffective disorder presents to the emergency department under [place] act initiated by law enforcement. Heart palpitations (per patient statement) Palpitations, Acute on chronic per patient's complaints/patient claimed history of Likely related to anxiety - 12 lead ECG sinus rhythm -start ASA 81 mg -Needed to obtain list of home medications from the family/daughter or patients pharmacy, discussed with the nurse Acid Reflux, acute on chronic/esophageal stricture status post dilatation 2015 History of gastritis/duodenitis History of C. difficile colitis, last episode in January 2016 -Status post EGD on 01/15/16 with esophageal dilatation, colon biopsy normal Status post colonoscopy on 03/05/2015 showing moderate diverticulosis -start Pepcid -monitor response History of AK I Status post IV fluid resuscitation -Monitor BMP Asthma, Hx of Unspecified asthma, uncomplicated No shortness of breath no wheezes -Add duo nebs as needed Schizoaffective disorder/history of anxiety/depression Schizoaffective disorder, unspecified ,Acute -Management with Psychiatric Team DVT Prophylaxis: patient ambulatory Code Status: full code Discussed Condition With: patient. nurse and Dr Franklin
[2018-03-30] MEDS: traZODone 50 MG Tablet PO SCH (21:52)
[2018-03-30] MEDS: OLANZapine 2.5 MG Tablet PO SCH (21:52)
[2018-03-30] MEDS: Famotidine 20 MG Tablet PO SCH (21:52)
--- NOTE | 2018-03-30 22:08 | P.PNPSY ---
Subjective Chief Complaint: Acute psychosis Remarks: Patient seen for follow up; chart reviewed. Discussion with nursing staff reported that patient continue with paranoia, poor sleep, yesterday stating that witches were raping her. Patient was found sitting in day room eating lunch noted to be, cooperative. Patient also noted to be suspicious of her food and asking if the food has been poisoned and was asking if the meat on the tray was human parts. Patient was assured that this was not meet from a human and that it was belief and patient later was noted to be eating. Patient state her mood has been "not good" was able to recall having been on Lexapro in the past but denying recollection of any other psychotropic medications. She states that she has not seen a psychiatrist for some time and has also stopped her medications years ago. She continues to report command auditory hallucinations. Collateral patient and from patient's daughter confirmed the patient for some time had been noted to be decompensating, wearing only white with the perception that the patient had to be pure as well as limited belongings in the home and with increasing paranoia and auditory hallucinations prior to admission. Patient agrees to consent to be guardian advocate and healthcare surrogate for this admission. We will start patient on psychotropic medications for improvement. Patient's daughter is Gladys Nuñez [phone]. Review of Systems All other systems reviewed negative except as stated in HPI Mental Status Examination Appearance: Disheveled Consciousness: Alert Orientation: Person, Place Speech: Pressured, Rapid Language: Perseveration Fund of Knowledge: Inadequate Attention and Concentration: Easily distracted Memory: Impaired Mood: Anxious Affect: Irritable, Anxious Thought Process & Associations: Loose associations, Tangential Thought Content: Bizarre thinking, Hallucinations, Delusional Hallucination Type: Auditory (witches) Delusion Type: Bizarre, Paranoid Suicidal Ideation: No Suicidal Plan: No Suicidal Intention: No Homicidal Ideation: No Homicidal Plan: No Homicidal Intention: No Insight: Fair Judgment: Poor Assessment and Plan - Assessment (1) Schizoaffective disorder Code(s): F25.9 - Schizoaffective disorder, unspecified Status: Acute - Plan Plan: Patient continues with bizarre delusions and paranoia along with complaint altered hallucinations. We will start patient on olanzapine 2.5 mg p.o. twice daily with upper titration for psychosis. Continue to monitor mood and behavior. Patient's daughter will serve as health concerns regarding advocate. Petition for involuntary hospitalization completed. Continue to encourage patient to maintain adequate hygiene and participate in groups and activities along with adherence to treatment. Discharge planning in progress. Justification for Continued Inpatient Stay: At risk of further decompensation at lower level care.
[2018-03-31] MEDS: OLANZapine 2.5 MG Tablet PO SCH ×2 (08:00→20:31)
[2018-03-31] MEDS: Famotidine 20 MG Tablet PO SCH ×2 (08:01→20:30)
--- NOTE | 2018-03-31 10:50 | P.PNPSY ---
Subjective Chief Complaint: Acute psychosis Remarks: Patient seen and examined with nurse in weekend coverage for Dr. Franklin. Chart reviewed. Case discussed with nursing staff who reports patient remains quite paranoid. On my examination today, the patient is of the belief that the nursing staff are witches who are trying to kill her. She says "this is the room they killed me in in 2006." Reassurance provided. She believes that we are presently under ground, although the ground level outdoor area is clearly visible from the window of her room. She denies any suicidal or homicidal ideation no reported side effects from medications. No acute physical complaints. Vital Signs Temp Pulse Resp BP Pulse Ox 03/31/18 06:08 91 H 16 119/60 03/30/18 18:44 99 F 97 H 17 138/64 97 Intake and Output 03/30/18 03/31/18 03/31/18 22:59 06:59 14:59 Intake Total 1060 / 1060 360 / 360 Balance 1060 / 1060 360 / 360 Intake: Oral 1060 / 1060 360 / 360 Other: # Voids 3 Admission laboratories reviewed. Decreased GFR noted. Review of Systems All other systems reviewed negative except as stated in HPI (Limitation: Psychosis) Mental Status Examination Appearance: Disheveled Consciousness: Alert Orientation: Person, Place Motor Activity: Abnormal gait (Ambulates with walker), Other (No motoric abnormalities noted) Speech: Unremarkable Language: Other (Rambling) Fund of Knowledge: Inadequate Attention and Concentration: Easily distracted Memory: Impaired (On clinical exam) Mood: Anxious Affect: Anxious Thought Process & Associations: Tangential Thought Content: Hallucinations, Preoccupations, Delusional Hallucination Type: Auditory (witches) Delusion Type: Bizarre, Paranoid Suicidal Ideation: No Suicidal Plan: No Suicidal Intention: No Homicidal Ideation: No Homicidal Plan: No Homicidal Intention: No Insight: Poor Judgment: Poor Assessment and Plan - Assessment (1) Schizoaffective disorder Code(s): F25.9 - Schizoaffective disorder, unspecified Status: Acute - Plan Plan: Patient received first dose of Zyprexa this morning. Continue Zyprexa as ordered for now but to consider further titration to target psychotic symptoms. Hospitalist input noted and appreciated. I will order a follow-up BMP for tomorrow morning. Continue to monitor on the inpatient unit. Continue other medications and care as ordered. Justification for Continued Inpatient Stay: Impairment in reality construction. High risk for decompensation in less restrictive environment. Discharge Planning: Per Dr. Franklin
--- NOTE | 2018-03-31 14:53 | P.PN ---
Subjective Interval history: Patient is seen sitting in day room. She tells me that someone stepped on her ankle and broke it; this is unlikely as she was seen ambulating across the room with her walker without any pain just prior. When I asked her how she is she says "everything is not okay here" and that "I should do something about it". Nursing reports no adverse events. Physical Exam Vital signs: Vital Signs 03/30/18 18:44 03/31/18 06:08 Temperature 99 F Pulse Rate 97 H 91 H Respiratory Rate 17 16 Blood Pressure 138/64 119/60 Pulse Oximetry 97 Intake & Output 03/30/18 03/31/18 03/31/18 18:59 06:59 18:59 Intake Total 1060 / 1060 720 / 720 Balance 1060 / 1060 720 / 720 Intake: Oral 1060 / 1060 720 / 720 Other: # Voids 3 Narrative: GENERAL: well developed, well nourished, female, in no apparent distress SKIN: Warm and dry. HEAD: Atraumatic. Normocephalic. CARDIOVASCULAR: Regular rate and rhythm. RESPIRATORY: No accessory muscle use. Clear to auscultation. Breath sounds equal bilaterally. GASTROINTESTINAL: Abdomen soft, non-tender, nondistended. MUSCULOSKELETAL: Extremities without clubbing, cyanosis, or edema. No obvious deformities or injuries. NEUROLOGICAL: Awake and alert. No obvious cranial nerve deficits. Motor grossly within normal limits. Generalized weakness. Normal speech. Results - Labs CBC & Chem 7: 03/27/18 15:51 03/27/18 15:51 Assessment and Plan - Assessment (1) Heart palpitations Code(s): R00.2 - Palpitations Status: Acute (2) Asthma Code(s): J45.909 - Unspecified asthma, uncomplicated Status: Acute (3) Schizoaffective disorder Code(s): F25.9 - Schizoaffective disorder, unspecified Status: Acute - Plan This a 67 years old female with PMH of heart arrhythmia, asthma, RA, acid reflux, psychosis and a record history of schizoaffective disorder presents to the emergency department under [place] act initiated by law enforcement. Heart palpitations (per patient statement) Palpitations, Acute on chronic per patient's complaints/patient claimed history of Likely related to anxiety - 12 lead ECG sinus rhythm -not concerning -start ASA 81 mg -Needed to obtain list of home medications from the family/daughter or patients pharmacy, discussed with the nurse Acid Reflux, acute on chronic/esophageal stricture status post dilatation 2015 History of gastritis/duodenitis History of C. difficile colitis, last episode in January 2016 -Status post EGD on 01/15/16 with esophageal dilatation, colon biopsy normal Status post colonoscopy on 03/05/2015 showing moderate diverticulosis -start Pepcid -monitor response History of AK I Status post IV fluid resuscitation -Monitor BMP Asthma, Hx of Unspecified asthma, uncomplicated No shortness of breath no wheezes -Add duo nebs as needed Schizoaffective disorder/history of anxiety/depression Schizoaffective disorder, unspecified ,Acute -Management with Psychiatric Team DVT Prophylaxis: patient ambulatory Patient appears to be medically stable at this point. Hospitalist service will sign off. Please reconsult if needed
[2018-03-31] MEDS: traZODone 50 MG Tablet PO SCH (20:31)
[2018-04-01] MEDS: Famotidine 20 MG Tablet PO SCH ×2 (08:28→21:23)
[2018-04-01] MEDS: OLANZapine 2.5 MG Tablet PO SCH ×2 (08:30→21:23)
--- NOTE | 2018-04-01 09:24 | P.PNPSY ---
Subjective Chief Complaint: Acute psychosis Remarks: Chart reveiwed and discussed with nursing staff. ADRIANA Pineda found patient in her room. She is refusing to leave the room to have breakfast. She endorses auditory and visual hallucinations. She states that the witches are out to get her and kill her. She is internally stimulated and in some distress. I spoke with Dr. Her and he agreed that her Zyprexa should be increased. Will increase the Zyprexa to 5 mg bid. Review of Systems All other systems reviewed negative except as stated in HPI Mental Status Examination Appearance: Disheveled Consciousness: Alert Orientation: Person, Place Motor Activity: Abnormal gait (Ambulates with walker), Other (No motoric abnormalities noted) Speech: Unremarkable Language: Other (Rambling) Fund of Knowledge: Inadequate Attention and Concentration: Easily distracted Memory: Impaired (On clinical exam) Mood: Anxious Affect: Anxious Thought Process & Associations: Tangential Thought Content: Hallucinations, Preoccupations, Delusional Hallucination Type: Auditory (witches) Delusion Type: Bizarre, Paranoid Suicidal Ideation: No Suicidal Plan: No Suicidal Intention: No Homicidal Ideation: No Homicidal Plan: No Homicidal Intention: No Insight: Poor Judgment: Poor Assessment and Plan - Assessment (1) Schizoaffective disorder Code(s): F25.9 - Schizoaffective disorder, unspecified Status: Acute - Plan Plan: Continue current treatment plan. Justification for Continued Inpatient Stay: Moving patient to a less restrictive environment may result in her decompensation.
[2018-04-01] MEDS: traZODone 50 MG Tablet PO SCH (21:22)
[2018-04-02] MEDS: Famotidine 20 MG Tablet PO SCH (08:55)
[2018-04-02] MEDS: OLANZapine 2.5 MG Tablet PO SCH (08:56)
--- NOTE | 2018-04-02 18:11 | ECG ---
Date Performed: 03/29/2018 Time Performed: 11:08:31 PTAGE: 67 years EKG: Sinus rhythm WITH SHORT MI INTERVAL NONSPECIFIC ST & T-WAVE ABNORMALITY BORDERLINE ECG PREVIOUS TRACING : 03/06/2015 14.35 Since the previous tracing, no significant change noted DOCTOR: Fabian Dumont Interpretating Date/Time 04/02/2018 18:09:32
--- NOTE | 2018-04-02 21:03 | P.PNPSY ---
Subjective Chief Complaint: Acute psychosis Remarks: Patient seen for follow-up, chart reviewed. Discussion with nursing staff reported that patient patient continues with bizarre behavior and to be talking to self on the unit. Patient was found in blade on unit noted B, cooperative. Patient stated his feeling "okay" but that her thinking was "nightmare". She continues to endorse auditory hallucinations command type and believes that these hallucinations will go on "until following". Patient reports that she feels that her sister trauma her family and that she is currently under surveillance now. Patient also states that she has the ability to hear herself from broken bones. Review of Systems All other systems reviewed negative except as stated in HPI Mental Status Examination Appearance: Appropriate Consciousness: Alert Orientation: Person, Place Motor Activity: Abnormal gait (Ambulates with walker), Other (No motoric abnormalities noted) Speech: Pressured Language: Perseveration Fund of Knowledge: Inadequate Attention and Concentration: Easily distracted Memory: Impaired Mood: Anxious Affect: Irritable, Anxious Thought Process & Associations: Loose associations, Tangential Thought Content: Bizarre thinking, Hallucinations, Delusional Hallucination Type: Auditory (witches) Delusion Type: Bizarre, Paranoid Suicidal Ideation: No Suicidal Plan: No Suicidal Intention: No Homicidal Ideation: No Homicidal Plan: No Homicidal Intention: No Insight: Fair Judgment: Poor Assessment and Plan - Assessment (1) Schizoaffective disorder Code(s): F25.9 - Schizoaffective disorder, unspecified Status: Acute - Plan Plan: Patient continues with auditory hallucinations, bizarre delusions and paranoia which patient will continue to require further stabilization. Patient recently started on Zyprexa we will continue current treatment and will require further titration. Patient likely for increase in dose tomorrow. We will continue to monitor mood and behavior. Discharge planning a progress. Justification for Continued Inpatient Stay: At risk of further decompensation at lower level care.
[2018-04-03] MEDS: Famotidine 20 MG Tablet PO SCH ×3 (02:24→21:13)
[2018-04-03] MEDS: OLANZapine 2.5 MG Tablet PO SCH ×2 (02:24→09:21)
[2018-04-03] MEDS: traZODone 50 MG Tablet PO SCH ×2 (02:24→21:13)
[2018-04-03] MEDS: Docusate Sodium 100 MG Capsule PO SCH ×2 (12:17→21:12)
--- NOTE | 2018-04-03 19:55 | P.PNPSY ---
Subjective Chief Complaint: Acute psychosis Remarks: Patient seen for follow-up, chart reviewed. Discussion with nursing staff reported that patient has been off her meals and visible on the unit but mostly keeps to herself. Patient was found sitting hospital bed noted to be internally preoccupied and noted to be talking to self at times. Patient with limited interaction interview today stating that she is feeling "a little better " but cannot elaborate. Patient states that she was not happy that she was getting food that was not ordered through her menu. We will continue to explore of physical complaints she did mention having some constipation but did not want further elaborate. Patient made interview set up and stated that she no longer wanted to continue to speak. Patient left the room refusing to continue interview. Review of Systems All other systems reviewed negative except as stated in HPI Mental Status Examination Appearance: Appropriate Consciousness: Alert Orientation: Person, Place Motor Activity: Abnormal gait (Ambulates with walker), Other (No motoric abnormalities noted) Speech: Pressured Language: Perseveration Fund of Knowledge: Inadequate Attention and Concentration: Easily distracted Memory: Impaired Mood: Anxious Affect: Irritable, Anxious Thought Process & Associations: Loose associations, Tangential Thought Content: Bizarre thinking, Hallucinations, Delusional Hallucination Type: Auditory (witches) Delusion Type: Bizarre, Paranoid Suicidal Ideation: No Suicidal Plan: No Suicidal Intention: No Homicidal Ideation: No Homicidal Plan: No Homicidal Intention: No Insight: Fair Judgment: Poor Assessment and Plan - Assessment (1) Schizoaffective disorder Code(s): F25.9 - Schizoaffective disorder, unspecified Status: Acute - Plan Plan: Patient continues to be noted to be internally preoccupied, responding to internal stimuli continues to be paranoid and bizarre delusions although is noted to be less paranoid but not the food and compliant with treatment. We will continue to titrate olanzapine for psychosis. Continue rest of medications. Continue to monitor mood and behavior. Discharge planning a progress. Justification for Continued Inpatient Stay: At risk of further decompensation at lower level care.
[2018-04-04] MEDS: OLANZapine 2.5 MG Tablet PO SCH (10:36)
[2018-04-04] MEDS: Famotidine 20 MG Tablet PO SCH ×2 (10:36→22:40)
[2018-04-04] MEDS: Docusate Sodium 100 MG Capsule PO SCH ×2 (10:37→22:40)
--- NOTE | 2018-04-04 13:07 | P.TTN ---
- Patient Problems Problems: 1. Discharge planning 2. Medication compliance 3. Knowledge deficit 4. Lack of coping skills - Progress Toward Goals Provider Present: Dr. Sophie Franklin Provider Input: Patient continues to meet criteria with psychotic features of delusions and hallucinations. Patient's medications have been increased. Psychiatric Counselors Present: Astrid Murdock [facility] Psychiatric Therapist Input: Patient is still stating she is seing witches and needs be pure white. Patient to be discharged home when patient is stabilize Group Spec/RT/OT/RECIO Present: HEMAL Cook Group Spec/RT/OT/RECIO Input: Patient is not capable of participation due to psychosis. - Documentation Teaching Recipient: Patient
--- NOTE | 2018-04-04 13:56 | P.PNPSY ---
Subjective Chief Complaint: Acute psychosis Remarks: Patient seen for follow-up, chart reviewed. Discussion with nursing staff reported that patient compliant with medications, continued be suspicious and paranoid of medications of food as well as with staff, eating and drinking well continues with flat affect. Patient was found with walker ambulating in the room initially reluctant to engage in interview today but was able to participate some. She states that she just got her medications was upset that was not admitted to her to her earlier in the morning. Patient continue with paranoid ideation of staff particularly with mortgage or loan underwriter questioning whether mortgage or loan underwriter was a registered physician and asking how she would be able to verify this. She mentions having been visited by which she believes may or may not get her daughter, 2 days ago stating that there is someone acting like her daughter and that someone that looks like her. Patient also continues without hallucinations states that they are somewhat better but continues to be present patient does not want to elaborate on content and at times noted to be internally preoccupied during interview. Review of Systems All other systems reviewed negative except as stated in HPI Mental Status Examination Appearance: Appropriate Consciousness: Alert Orientation: Person, Place Motor Activity: Abnormal gait (Ambulates with walker), Other (No motoric abnormalities noted) Speech: Pressured Language: Perseveration Fund of Knowledge: Inadequate Attention and Concentration: Easily distracted Memory: Impaired Mood: Anxious Affect: Irritable, Anxious Thought Process & Associations: Loose associations, Tangential Thought Content: Bizarre thinking, Hallucinations, Delusional Hallucination Type: Auditory (witches) Delusion Type: Bizarre, Paranoid Suicidal Ideation: No Suicidal Plan: No Suicidal Intention: No Homicidal Ideation: No Homicidal Plan: No Homicidal Intention: No Insight: Fair Judgment: Poor Assessment and Plan - Assessment (1) Schizoaffective disorder Code(s): F25.9 - Schizoaffective disorder, unspecified Status: Acute - Plan Plan: Patient this time continues with impressive exam delusions, continue with paranoid with medication but is compliant with taking them. Patient also continues with believes that her daughter was taken over by an impostor and continues with auditory hallucinations. We will continue to titrate olanzapine to 7.5 mg p.o. twice daily for psychosis. Continue rest of medications. Continue to monitor mood and behavior. Discharge planning a progress. Justification for Continued Inpatient Stay: At risk of further decompensation at lower level care.
[2018-04-04] MEDS: traZODone 50 MG Tablet PO SCH (22:40)
[2018-04-05] MEDS: OLANZapine 2.5 MG Tablet PO SCH (09:44)
[2018-04-05] MEDS: Famotidine 20 MG Tablet PO SCH ×2 (09:44→20:08)
[2018-04-05] MEDS: Docusate Sodium 100 MG Capsule PO SCH ×2 (09:45→22:56)
--- NOTE | 2018-04-05 16:06 | P.PNPSY ---
Subjective Chief Complaint: Acute psychosis Remarks: Patient seen for follow-up, chart reviewed. Discussion with nursing staff reported that patient continues with paranoia, suspicious of medications and staff, eating and drinking well continue to be noted to be internally preoccupied. Patient was found ambulating on the unit and interviewed in day room. Patient states that she has some sleep difficulty last evening but states that she is happy that she is alive today. Patient noted with improved engagement in interview noted to be less irritable. Patient continues report auditory hallucinations but states they are "further away". Patient continues with paranoid ideations stating that she feels this way still but denying any suicidal ideation at this time. Patient continues to report uncertainty whether patient's daughter is an impostor. Patient presented to mental health court which patient was continued on a continuance for further treatment. Review of Systems All other systems reviewed negative except as stated in HPI Mental Status Examination Appearance: Appropriate Consciousness: Alert Orientation: Person, Place Motor Activity: Abnormal gait (Ambulates with walker), Other (No motoric abnormalities noted) Speech: Pressured Language: Perseveration Fund of Knowledge: Inadequate Attention and Concentration: Easily distracted Memory: Impaired Mood: Anxious Affect: Anxious Thought Process & Associations: Loose associations, Tangential Thought Content: Bizarre thinking, Hallucinations, Delusional Hallucination Type: Auditory Delusion Type: Bizarre, Paranoid Suicidal Ideation: No Suicidal Plan: No Suicidal Intention: No Homicidal Ideation: No Homicidal Plan: No Homicidal Intention: No Insight: Fair Judgment: Poor Assessment and Plan - Assessment (1) Schizoaffective disorder Code(s): F25.9 - Schizoaffective disorder, unspecified Status: Acute - Plan Plan: Patient continued with paranoia, continued with auditory hallucinations which are now lessening continues to be suspicious of staff and medications as well as continue to believe her daughter was taken over by an impostor. Olanzapine recently increased to 7.5 g p.o. twice daily we will continue current treatment. We will continue to monitor mood and behavior. Discharge planning in progress. Justification for Continued Inpatient Stay: At risk of further decompensation at lower level care.
[2018-04-05] MEDS: traZODone 50 MG Tablet PO SCH (20:08)
[2018-04-06] MEDS: OLANZapine 2.5 MG Tablet PO SCH (08:37)
[2018-04-06] MEDS: Docusate Sodium 100 MG Capsule PO SCH (08:37)
[2018-04-06] MEDS: Famotidine 20 MG Tablet PO SCH ×2 (08:37→22:20)
[2018-04-06 13:19] LABS: Baso % (Auto) 0.5 % (0.0-2.0); Eos # (Auto) 0.1 th/mm3 (0.0-0.4); Hematocrit 41.5 % (35.0-46.0); Hemoglobin 14.4 gm/dL (11.6-15.3); Lymph # (Auto) 1.6 th/mm3 (1.0-4.8); Lymph % (Auto) 21.8 % (9.0-44.0); Mean Corpuscular HGB Conc 34.6 % (32.0-36.0); Mean Corpuscular Hemoglobin 35.6 pg (27.0-34.0); Mean Corpuscular Volume 102.9 fL (80.0-100.0); Mean Platelet Volume 7.5 fL (7.0-11.0); Mono # (Auto) 0.3 th/mm3 (0.0-0.9); Mono % (Auto) 3.8 % (0.0-8.0); Neut # (Auto) 5.3 th/mm3 (1.8-7.7); Neut % (Auto) 72.9 % (16.0-70.0); Platelet Count 244 th/mm3 (150-450); Red Blood Count 4.03 mil/mm3 (4.00-5.30); Red Cell Distribution Width 13.6 % (11.6-17.2); White Blood Count 7.3 th/mm3 (4.0-11.0)
[2018-04-06 13:37] LABS: Calcium 8.7 mg/dL (8.5-10.1); Carbon Dioxide 29.8 meq/L (21.0-32.0); Potassium 3.5 meq/L (3.5-5.1)
[2018-04-06 14:04] LABS: Chol/HDL Ratio 2.67 Ratio; HDL Cholesterol 78.5 mg/dL (40.0-60.0); Thyroid Stimulating Hormone 0.177 uIU/mL (0.358-3.740)
[2018-04-06 14:20] LABS: Hemoglobin A1c 4.8 % (4.3-6.0)
[2018-04-06] MEDS ORDERED: OLANZapine 2.5 MG Tablet PO SCH (16:04)
--- NOTE | 2018-04-06 16:11 | P.PNPSY ---
Subjective Chief Complaint: Acute psychosis Remarks: Patient seen for follow-up, chart reviewed. Discussion with nursing staff reported that patient slept, continues with paranoia with medications. Patient was found ambulating on the unit, continues to be noted to be paranoid but more engaging in interview. She continues to believe that the clothes that were brought to her were from a person who looks like her daughter. She mentions sleeping well, less suspicousness with the food, continues with AH but lessening. She states that the medications are helping her "think clearer". Review of Systems All other systems reviewed negative except as stated in HPI Mental Status Examination Appearance: Appropriate Consciousness: Alert Orientation: Person, Place Motor Activity: Abnormal gait (Ambulates with walker), Other (No motoric abnormalities noted) Speech: Pressured Language: Perseveration Fund of Knowledge: Inadequate Attention and Concentration: Easily distracted Memory: Impaired Mood: Anxious Affect: Anxious Thought Process & Associations: Loose associations, Tangential Thought Content: Bizarre thinking, Hallucinations, Delusional Hallucination Type: Auditory Delusion Type: Bizarre, Paranoid Suicidal Ideation: No Suicidal Plan: No Suicidal Intention: No Homicidal Ideation: No Homicidal Plan: No Homicidal Intention: No Insight: Fair Judgment: Poor Assessment and Plan - Assessment (1) Schizoaffective disorder Code(s): F25.9 - Schizoaffective disorder, unspecified Status: Acute - Plan Plan: Patient with improvement but continues with AH, paranoia and bizarre delusions. Continues to be internally preoccupied but more engagable in interview. Increase olanzapine to 7.5mg PO BID for psychosis. Continue to monitor mood and behavior. Discharge planning in progress. Justification for Continued Inpatient Stay: At risk for further decompensation at lower level of care.
[2018-04-06] MEDS: traZODone 50 MG Tablet PO SCH (22:20)
[2018-04-07] MEDS: Docusate Sodium 100 MG Capsule PO SCH ×3 (02:44→21:29)
[2018-04-07] MEDS: Famotidine 20 MG Tablet PO SCH ×2 (09:49→21:25)
[2018-04-07] MEDS: OLANZapine 2.5 MG Tablet PO SCH (09:49)
--- NOTE | 2018-04-07 14:12 | P.PNPSY ---
Subjective Chief Complaint: Acute psychosis Remarks: Reviewed electronic medical records and discussed case with staff. Follow-up was conducted in the day room with ADRIANA Gusman present. Her nurse reports that she seems to be doing a little better. Although, she was very suspicious of her medications and staff this morning. Patient states that she feels "better" . Reports that she slept good and her appetite has been good. She does endorse continuing intermittent auditory hallucinations. She states that although she still hearing them they are "lower and I am able to ignore them". She is polite and interactive throughout the follow-up however I cannot help but noticing that once I mentioned my colleague would see her tomorrow she asked who my colleague was approximately four times. Her paranoia seems to still be strong. Mental Status Examination Appearance: Appropriate Consciousness: Alert Orientation: Person, Place Motor Activity: Abnormal gait (Ambulates with walker), Other (No motoric abnormalities noted) Speech: Pressured Language: Perseveration Fund of Knowledge: Inadequate Attention and Concentration: Easily distracted Memory: Impaired Mood: Anxious Affect: Anxious Thought Process & Associations: Loose associations, Tangential Thought Content: Bizarre thinking, Hallucinations, Delusional Hallucination Type: Auditory Delusion Type: Bizarre, Paranoid Suicidal Ideation: No Suicidal Plan: No Suicidal Intention: No Homicidal Ideation: No Homicidal Plan: No Homicidal Intention: No Insight: Fair Judgment: Poor Assessment and Plan - Assessment (1) Schizoaffective disorder Code(s): F25.9 - Schizoaffective disorder, unspecified Status: Acute - Plan Plan: Patient will be reevaluated by the attending psychiatrist. Continue with current treatment plan. Justification for Continued Inpatient Stay: Moving this patient to a less restrictive environment would likely result in decompensation.
[2018-04-07] MEDS: traZODone 50 MG Tablet PO SCH (21:25)
[2018-04-08] MEDS: OLANZapine 2.5 MG Tablet PO SCH (09:05)
[2018-04-08] MEDS: Famotidine 20 MG Tablet PO SCH ×2 (09:06→20:49)
--- NOTE | 2018-04-08 09:08 | P.PNPSY ---
Subjective Chief Complaint: Acute psychosis Remarks: Reviewed electronic medical records and discussed case with staff. Follow-up was conducted in the [facility] area with RN present. Patient endorses that she is still hearing voices. She states that voices are less intrusive since she started medication, Zyprexa. She is eating well. States that she is finally getting some sleep since the medications started and this has helped. Per nursing staff her son is very supportive and has been here during visiting hours. She is preoccupied worrying about her car and her apartment. Review of Systems All other systems reviewed negative except as stated in HPI Mental Status Examination Appearance: Appropriate Consciousness: Alert Orientation: Person, Place Motor Activity: Abnormal gait (Ambulates with walker), Other (No motoric abnormalities noted) Speech: Pressured Language: Perseveration Fund of Knowledge: Inadequate Attention and Concentration: Easily distracted Memory: Impaired Mood: Anxious Affect: Anxious Thought Process & Associations: Loose associations, Tangential Thought Content: Bizarre thinking, Hallucinations, Delusional Hallucination Type: Auditory Delusion Type: Bizarre, Paranoid Suicidal Ideation: No Suicidal Plan: No Suicidal Intention: No Homicidal Ideation: No Homicidal Plan: No Homicidal Intention: No Insight: Fair Judgment: Poor Assessment and Plan - Assessment (1) Schizoaffective disorder, unspecified Code(s): F25.9 - Schizoaffective disorder, unspecified Status: Acute - Plan Plan: Continue current treatment plan. Justification for Continued Inpatient Stay: Moving patient to a less restrictive environment may result in her decompensation.
[2018-04-08] MEDS: Docusate Sodium 100 MG Capsule PO SCH ×2 (09:21→21:14)
[2018-04-08] MEDS: traZODone 50 MG Tablet PO SCH (20:50)
[2018-04-09] MEDS: Docusate Sodium 100 MG Capsule PO SCH ×2 (09:08→21:06)
[2018-04-09] MEDS: OLANZapine 2.5 MG Tablet PO SCH (09:08)
[2018-04-09] MEDS: Famotidine 20 MG Tablet PO SCH ×2 (09:09→20:55)
--- NOTE | 2018-04-09 14:16 | P.TTN ---
- Patient Problems Problems: 1. Discharge planning 2. Medication compliance 3. Knowledge deficit 4. Lack of coping skills - Progress Toward Goals Provider Present: Dr. Sophie Franklin Provider Input: 04/09/18: Pt continues to be delusional, she has stated that she believes the person who has come to visit is not her daughter but is an imposter ; pt is not stable, continuing to meet in-pt criteria at this time, dtr is involved in discharge planning. Patient continues to meet criteria with psychotic features of delusions and hallucinations. Patient's medications have been increased. Psychiatric Counselors Present: Astrid Murdock [facility] Psychiatric Therapist Input: Patient is still stating she is seing witches and needs be pure white. Patient to be discharged home when patient is stabilize Group Spec/RT/OT/RECIO Present: Jackie Rhodes, RECIO, Spenser Jones, OT, Gigi Jin, RECIO Group Spec/RT/OT/RECIO Input: 04/09/18: Pt continues to be incapable of tolerating groups. Patient is not capable of participation due to psychosis. Additional Input: 04/09/18: pt is not stable, continuing to meet in-pt criteria at this time, dtr is involved in discharge planning. Pt PLOF was living alone in apartment. This is currently not a viable placement option considering pt's delusional beliefs. MD to follow up with pt's daughter to discuss placement options. - Documentation Teaching Recipient: Patient
--- NOTE | 2018-04-09 16:50 | P.PNPSY ---
Subjective Chief Complaint: Acute psychosis Remarks: Patient seen for follow-up, chart reviewed. Discussion with nursing staff reported that patient noted to be continued with paranoia but more visible on the unit. Patient was found in blade on unit noted B, cooperative. Patient noted to be more pleasant and engaging interview today. Patient continues to have paranoia and continues to question whether sheet writer's is a licensed physician and continues to have some doubt whether her daughter truly is her daughter or not and posture. Patient continues to endorse command auditory hallucinations telling her to do certain things but not commanding to hurt herself or others. Patient reports that auditory hallucinations are decreasing but continued to be present. She reports her mood is being "good" reports sleeping and eating well. Patient concerned about her apartment but was reassured that her daughter is involved in making sure her apartment and bills are taken care of. Patient was provided with number to her daughter which she agrees to call her later today. Review of Systems All other systems reviewed negative except as stated in HPI Mental Status Examination Appearance: Appropriate Consciousness: Alert Orientation: Person, Place Motor Activity: Abnormal gait (Ambulates with walker), Other (No motoric abnormalities noted) Speech: Pressured Language: Perseveration Fund of Knowledge: Inadequate Attention and Concentration: Easily distracted Memory: Impaired Mood: Anxious (Lessening) Affect: Anxious (Lessening) Thought Process & Associations: Loose associations, Tangential Thought Content: Bizarre thinking, Hallucinations, Delusional Hallucination Type: Auditory Delusion Type: Bizarre, Paranoid Suicidal Ideation: No Suicidal Plan: No Suicidal Intention: No Homicidal Ideation: No Homicidal Plan: No Homicidal Intention: No Insight: Fair Judgment: Poor Assessment and Plan - Assessment (1) Schizoaffective disorder Code(s): F25.9 - Schizoaffective disorder, unspecified Status: Acute - Plan Plan: Patient is paranoid and persecutory delusions are decreasing as well as but continues to be present. We will continue to titrate Zyprexa to 7.5 mg a.m./10 mg at bedtime for psychosis. Continue rest medications. Continue to monitor mood and behavior. Discharge planning in progress. Justification for Continued Inpatient Stay: At risk of further decompensation at lower level care.
[2018-04-09] MEDS: traZODone 50 MG Tablet PO SCH (20:55)
[2018-04-10] MEDS: OLANZapine 2.5 MG Tablet PO SCH (08:31)
[2018-04-10] MEDS: Famotidine 20 MG Tablet PO SCH ×2 (08:33→21:24)
[2018-04-10] MEDS: Docusate Sodium 100 MG Capsule PO SCH ×2 (08:34→23:08)
--- NOTE | 2018-04-10 16:13 | P.PNPSY ---
Subjective Chief Complaint: Acute psychosis Remarks: Patient seen for follow up; chart reviewed. Discussion with nursing staff reported patient with poor sleep less evening due to paranoia with roommate and movements one-to-one sitter. She is continue to be compliant with medications, guarded and suspicious still with improved mood and continues with auditory hallucinations. Patient was found sitting in hospital chair in the room noted to be cooperative but stating that she is feeling "tired" that she states she was up all night stating that she did not trust being in the same room with her roommate and the sitter. She states feeling uncomfortable with those individuals in her room while she slept. She states her mood has been "okay" stating that her auditory hallucinations been less stating that they are "not that many". Patient continues to report the absolute need to be command in nature last time being this morning. Patient continued with paranoid ideation but appears to be lessening. Patient continues to have some vagueness believing the person that seen her last week was her daughter. She does not recall having present to mental health court last week. Review of Systems All other systems reviewed negative except as stated in HPI Mental Status Examination Appearance: Appropriate Consciousness: Alert Orientation: Person, Place Motor Activity: Abnormal gait (Ambulates with walker), Other (No motoric abnormalities noted) Speech: Pressured Language: Perseveration Fund of Knowledge: Inadequate Attention and Concentration: Easily distracted Memory: Impaired Mood: Anxious (Lessening) Affect: Anxious (Lessening) Thought Process & Associations: Loose associations, Tangential Thought Content: Bizarre thinking, Hallucinations (Lessening), Delusional Hallucination Type: Auditory Delusion Type: Bizarre, Paranoid Suicidal Ideation: No Suicidal Plan: No Suicidal Intention: No Homicidal Ideation: No Homicidal Plan: No Homicidal Intention: No Insight: Fair Judgment: Poor Assessment and Plan - Assessment (1) Schizoaffective disorder Code(s): F25.9 - Schizoaffective disorder, unspecified Status: Acute - Plan Plan: Patient appears to be improving with less perseveration on delusions but continues with command auditory hallucinations. We will continue to titrate olanzapine to 10 mg p.o. twice daily for psychosis. Continue rest of medications. Continue to monitor mood and behavior. Discharge planning a progress. Justification for Continued Inpatient Stay: At risk of further decompensation at lower level care.
[2018-04-10] MEDS: traZODone 50 MG Tablet PO SCH (21:21)
[2018-04-11] MEDS: Famotidine 20 MG Tablet PO SCH ×2 (10:18→21:01)
[2018-04-11] MEDS: OLANZapine 10 MG Tablet PO SCH (10:19)
[2018-04-11] MEDS: Docusate Sodium 100 MG Capsule PO SCH ×2 (10:19→21:04)
--- NOTE | 2018-04-11 15:21 | P.PNPSY ---
Subjective Chief Complaint: Acute psychosis Remarks: Patient seen for follow-up, chart reviewed. Discussion with nursing staff reported that patient continues to be seclusive, did not want to call daughter today stating that she has spoken with her for 45 minutes yesterday and has been compliant with medications noted with increase in weight gain of 11 pounds. Patient was found lying hospital bed noted to be, cooperative noted be somewhat irritable demanding to be discharged. Patient stated she slept better last night that she slept in her bed and that her appetite has been "fine". Patient reports adequate bowel movement. She states her mood has been "upset" stating that she is too worried about her bills in her apartment at this point reminded her that patient's daughter had been in charge of her bills and apartment. She states that she has spoke with her daughter yesterday which was a pleasant conversation. Patient continues to be somewhat paranoid with staff and refused to walk into the day room where his daughter will be coming to visit with her tomorrow. Patient continues to endorse auditory hallucinations although denies being as intense as before. Review of Systems All other systems reviewed negative except as stated in HPI Mental Status Examination Appearance: Appropriate Consciousness: Alert Orientation: Person, Place Motor Activity: Abnormal gait (Ambulates with walker), Other (No motoric abnormalities noted) Speech: Pressured Language: Perseveration Fund of Knowledge: Inadequate Attention and Concentration: Easily distracted Memory: Impaired Mood: Irritable Affect: Irritable Thought Process & Associations: Loose associations, Tangential Thought Content: Bizarre thinking, Hallucinations (Lessening), Delusional Hallucination Type: Auditory Delusion Type: Bizarre, Paranoid Suicidal Ideation: No Suicidal Plan: No Suicidal Intention: No Homicidal Ideation: No Homicidal Plan: No Homicidal Intention: No Insight: Fair Judgment: Poor Assessment and Plan - Assessment (1) Schizoaffective disorder Code(s): F25.9 - Schizoaffective disorder, unspecified Status: Acute - Plan Plan: Patient continues with paranoia continues with auditory hallucinations although noted to be less disorganized and less internally preoccupied patient continues with these paranoia. Patient noted to be with improved affect and more engaging interview with appropriate responses down just demanding discharge. We will await for daughter to visit with patient to assess baseline and to continue to monitor mood and behavior. Continue current treatment. Continue to monitor with behavior. Discharge planning a progress. Justification for Continued Inpatient Stay: At risk of further decompensation at lower level care.
[2018-04-11] MEDS: traZODone 50 MG Tablet PO SCH (21:01)
[2018-04-12] MEDS: Docusate Sodium 100 MG Capsule PO SCH ×2 (08:51→20:45)
--- NOTE | 2018-04-12 08:51 | P.TTN ---
- Patient Problems Problems: 1. Discharge planning 2. Medication compliance 3. Knowledge deficit 4. Lack of coping skills - Progress Toward Goals Provider Present: Dr. Sophie Franklin Provider Input: 04/11/18: MD titrating medications., pt continues to report voices and demonstrates paranoia, pt continues to meet criteria for in-pt psych. D/c plan to consider daughter's input who is expected to visit this weekend. 04/09/18: Pt continues to be delusional, she has stated that she believes the person who has come to visit is not her daughter but is an imposter ; pt is not stable, continuing to meet in-pt criteria at this time, dtr is involved in discharge planning. Patient continues to meet criteria with psychotic features of delusions and hallucinations. Patient's medications have been increased. Psychiatric Counselors Present: Astrid Murdock, [facility] Psychiatric Therapist Input: Patient is still stating she is seing witches and needs be pure white. Patient to be discharged home when patient is stabilize Group Spec/RT/OT/RECIO Present: Olena Eckert, GPS, Jackie Rhodes, RECIO, Spenser Jones, OT, Gigi Jin, RECIO Group Spec/RT/OT/RECIO Input: 04/11/18: Pt cannot tolerate group activities. 04/09: Pt continues to be incapable of tolerating groups. Patient is not capable of participation due to psychosis. Additional Input: 04/11/18: pt continues to meet criteria for in-pt psych. D/c plan to consider daughter's input who is expected to visit this weekend 04/09/18: pt is not stable, continuing to meet in-pt criteria at this time, dtr is involved in discharge planning. Pt PLOF was living alone in apartment. This is currently not a viable placement option considering pt's delusional beliefs. MD to follow up with pt's daughter to discuss placement options. - Documentation Teaching Recipient: Patient
[2018-04-12] MEDS: Famotidine 20 MG Tablet PO SCH ×2 (08:52→20:44)
[2018-04-12] MEDS: OLANZapine 10 MG Tablet PO SCH (08:52)
--- NOTE | 2018-04-12 16:43 | P.PNPSY ---
Subjective Chief Complaint: Acute psychosis Remarks: Patient seen for follow-up, chart reviewed. Discussion with nursing staff reported that patient eating and drinking well, daughter is plan for visit later today. Patient was found ambulating on unit refused to speak in her room was interviewed in the room. Patient continues to be noted to be suspicious of copywriter noted to be somewhat oppositional today due to her irritability and demanding and wanted to be discharged. Patient continues to have ambiguity on believing that her daughter is visiting her today however patient was brought closed which was purchased for her by her daughter last week patient was suspicious that these close were for her and despite multiple reiterations of the purchase for her she continued to doubt copywriter statements. Patient continues report having auditory hallucinations but stating there are less happening only a couple times a day and making non-and derogatory comments. Patient more engaging and responsive during interview and although continues to have some paranoia still has no longer noted to be internally preoccupied. Patient refused to be led to the activity room yesterday where she will be having visitation. Review of Systems All other systems reviewed negative except as stated in HPI Mental Status Examination Appearance: Appropriate Consciousness: Alert Orientation: Person, Place Motor Activity: Abnormal gait (Ambulates with walker), Other (No motoric abnormalities noted) Speech: Pressured Language: Perseveration Fund of Knowledge: Inadequate Attention and Concentration: Easily distracted Memory: Impaired Mood: Irritable Affect: Irritable Thought Process & Associations: Loose associations, Tangential Thought Content: Bizarre thinking, Hallucinations (Lessening), Delusional Hallucination Type: Auditory Delusion Type: Bizarre (Lessening), Paranoid Suicidal Ideation: No Suicidal Plan: No Suicidal Intention: No Homicidal Ideation: No Homicidal Plan: No Homicidal Intention: No Insight: Fair Judgment: Poor Assessment and Plan - Assessment (1) Schizoaffective disorder Code(s): F25.9 - Schizoaffective disorder, unspecified Status: Acute - Plan Plan: Patient this time noted to have improvement in psychosis and that although auditory hallucinations continue to be present, they are now not on a derogatory and lessening in intensity or frequency. Patient able to engage more appropriately during interview and although irritable demand to be discharged patient's insight appears to be improving slowly but continues to have paranoid delusions. Patient no longer believing her daughter is an impostor. Will increase olanzapine to 10mg am/15mg HS. We will continue to monitor mood and behavior. Patient's daughter has planned visitation today and will await interaction and assessment by patient's daughter in relation to patient's baseline. We will continue discharge planning. Justification for Continued Inpatient Stay: At risk of further decompensation at lower level care.
[2018-04-12 18:06] VITALS: O2SAT 98
[2018-04-12] MEDS: traZODone 50 MG Tablet PO SCH (20:43)
[2018-04-12] MEDS ORDERED: OLANZapine 15 MG Tablet PO SCH (21:00)
[2018-04-13 05:44] VITALS: BP 105/61; PULSE 97; RESP 16; TEMP 98.4
[2018-04-13] MEDS: OLANZapine 10 MG Tablet PO SCH (09:03)
[2018-04-13] MEDS: Famotidine 20 MG Tablet PO SCH (09:03)
[2018-04-13] MEDS: Docusate Sodium 100 MG Capsule PO SCH (09:06)
--- NOTE | 2018-04-13 11:19 | P.DCO ---
- Home Health Nursing Order: Signs/symptoms of disease process, Medication education-adverse effect - Case Management Consult Yes - Certification I have seen patient Kay Goyal on 04/13/18. My clinical findings support the need for the requested home health care services because: Medication compliance is questionable, Impaired cognition/judgement I certify that my clinical findings support that this patient is homebound because: Impaired cognitive ability/safety
--- NOTE | 2018-04-13 15:38 | P.DSPSY ---
Psychiatry Discharge Summary Inpatient Psychiatric care?: Yes Advance Directives: No Mental Health Advance Directive: No Health Care Proxy: No - Admission Admission Date: March 28, 2018 10:09 - Admission Diagnosis (1) Schizoaffective disorder Code(s): F25.9 - Schizoaffective disorder, unspecified Brief History: Patient is a 67-year-old female with a history of schizoaffective disorder. ER note was reviewed, case was discussed with nursing and patient was evaluated. Patient is floridly psychotic and appears to be off her medication. Patient has a multitude of bizarre delusions. Patient thinks that her daughter is not her daughter, and there is nondenominational and goblins in her house. Patient is preoccupied with witches. Patient feels that she has already been murdered today and chopped up in her room earlier this morning. Patient says that the witches have raped her 150 times but "she has never had sex with a man or woman. " Patient says any 1 of us could be witches. She has auditory hallucinations telling her to give everything away and did not take her medications. Patient is disheveled and paranoid. Thought process is tangential and loose. She does not endorse a stable mood and denies suicidal or homicidal ideation intent or plan. Past psych: Patient denies a history of suicide attempt. She admits to hallucinations since she was a child. She has been seeing psychiatrist all of her life and is a patient at [facility] She has had multiple inpatient admissions. She has a long history of medications with an adverse effect to Seroquel because "it is a stomach acid." Past medical: See chart Past Famhx: "All of them." Past Social: Patient has trouble providing a coherent social history. She denies a history of alcohol or cannabis use. Believes that she does not have children where in fact she does. HPI Narrative: 67-year-old, single female, with record history of schizoaffective disorder presents to the emergency department under [place] act initiated by law enforcement. According to the [place] act report the patient's daughter had requested a well-being check due to concerns that for the past 6 months she had a change in her usual presentation including, not remembering who her daughter is but recognizing her son in law, she has gotten rid of most of her belongings, has been staying in her apartment for extended amounts of time, believes that somebody has been tampering with her food and is poisoning her. She is eating hospital food during her examination and continues to ask me to smell it because" it is poisoned with arsenic". She believes that somebody is going around town wearing her clothes and impersonating her. She admits to hearing voices " of children inside the air ducts". She says they are telling her to do things. She admits to seeing colors , shapes, people. Patient is irritable on examination, refusing to answer any questions upon initial attempt. I later returned and she did agree to answer some questions. She is alert and oriented. She tells me that she has stopped all her psychiatric medications " because I was feeling better". She is unable to tell me the last time she was at [facility] Tobacco Use In Past 30 Days: No How Often Do You Have a Drink Containing Alcohol: Never Hospital Course: Patient is a 67-year-old woman, domiciled alone, has 1 adult daughter, unemployed, with a past psychiatric history of schizoaffective disorder floridly psychotic and appears to be off her medication, has a multitude of bizarre delusions and thinks that her daughter is not her daughter, and there is nondenominational and goblins in her house and feels that she has already been murdered today and chopped up in her room earlier this morning which patient was admitted to the inpatient psychiatry unit for further evaluation and management. Patient was admitted to a locked, inpatient psychiatric unit. Appropriate precautions were in place throughout patient's hospital stay. Patient was seen and examined on the unit by psychiatry. Psychotropic medications were adjusted. There was no evidence of any suicidality or homicidality on the inpatient unit. Patient's mood and psychosis improved with the benefit of psychopharmacological treatment and had no behavioral disturbance since admission. Patient was noted to have reached stable mood, noted to participate and engage in treatment and interact with staff adequately. Patient noted to be future oriented with plans to continue treatment and outpatient follow-up appointments for continuity of care. Counselor has arranged discharge plan which patient would be discharged with home health services as well as daughter involved in discharge plan. On the day of discharge: Patient seen and examined; chart reviewed. Case discussed with nurse and counselor. No behavioral issues overnight. On my examination today, the patient denies any suicidal or homicidal ideation, intent or plan on direct questioning and contracts for safety. Patient denies any perceptional disturbances and no delusional material verbalized today. Patient denies any side effects from medication and has understanding of medication regimen and education. No physical complaints. Suicide and violence risk assessment on day of discharge both suggest lower imminent risk, and the patient's level of function is adequate for plan level of outpatient care. Patient has maximized benefit from this inpatient psychiatric hospital stay and will be discharged with discharge plan as arranged by counselor. Patient advised to return to psychiatric emergency room for any concerning psychiatric symptoms. Patient agrees with plan. - Discharge Discharge Date: 04/13/18 - Discharge Diagnosis (1) Schizoaffective disorder Code(s): F25.9 - Schizoaffective disorder, unspecified Status: Acute Discharge Disposition: Home - Discharge Instructions Discharge Diet: Heart Healthy Diet Activities You Can Perform: Weight Bearing As Tolerat - Discharge Time > 30 minutes Mental Status Examination Appearance: Appropriate Consciousness: Alert Orientation: Person, Place Motor Activity: Abnormal gait (Ambulates with walker), Other (No motoric abnormalities noted) Speech: Unremarkable Language: Adequate Fund of Knowledge: Inadequate Attention and Concentration: Easily distracted Memory: Impaired Mood: Appropriate Affect: Appropriate Thought Process & Associations: Intact, Linear Thought Content: Appropriate Hallucination Type: None Delusion Type: Paranoid (minimal) Suicidal Ideation: No Suicidal Plan: No Suicidal Intention: No Homicidal Ideation: No Homicidal Plan: No Homicidal Intention: No Insight: Fair Judgment: Impulsive Discharge/Advance Care Plan - Results Vital Signs: Last Vital Signs Temp 98.4 F 04/13/18 05:43 Pulse 97 H 04/13/18 05:43 Resp 16 04/13/18 05:43 BP 105/61 04/13/18 05:43 Pulse Ox 98 04/13/18 05:43 Lab Results: Laboratory Results Hemoglobin A1c 4.8 % (4.3-6.0) 04/06/18 12:40 Triglycerides 203 mg/dL (42-150) H 04/06/18 12:40 Cholesterol 210 mg/dL (120-200) H 04/06/18 12:40 LDL Cholesterol, Calc 91 mg/dL (0-99) 04/06/18 12:40 HDL Cholesterol 78.5 mg/dL (40.0-60.0) H 04/06/18 12:40 TSH 0.177 uIU/mL (0.358-3.740) L 04/06/18 12:40 Urine Culture Comments Culture not ind 03/27/18 19:00 Summary of Procedures: none Imaging: ITS Impressions Head CT 03/27/18 16:52 CONCLUSION: Negative CT Head non contrast. . Pending Results: None - Medications Number of antipsychotic medications at discharge: 1 - Discharge Care Plan Goals to Promote Your Health: * To prevent worsening of your condition and complications * To maintain your health at the optimal level Directions to Meet Your Goals: Take your medications as prescribed Follow your dietary instruction Follow activity as directed Keep your appointments as scheduled Take your immunizations and boosters as scheduled If your symptoms worsen call your PCP, if no PCP go to Urgent Care Center or Emergency Room For 26/12 questions related to your inpatient stay or results of tests pending at discharge, please contact Dr. Waldemar Franklin MD at Smoking is Dangerous to Your Health. Avoid second hand smoking
== END 2018-04-13 16:00 | disposition home health service (06) ==
LOC: NEDAMB 15:27 → NEDA 03-28 10:09 → H250 03-28 11:08
PROVIDERS: ADMIT Student in an Organized Health Care Education/Training Program; ATTEND Student in an Organized Health Care Education/Training Program